=== PATIENT | female | born 1950 | race Caucasian/White ===

== ENCOUNTER 2025-11-04 19:07 | Inpatient (IN) | payer BC, MEDICARE, SELFPAY ==
[2025-11-04] VITALS (10 sets, daily range): BP systolic 85–116; BP diastolic 57–89; PULSE 55–86; RESP 11–24; TEMP 36.6; O2SAT 98–100
--- NOTE | ~2025-11-04 | CT_ITS ---
EXAMINATION: CTA chest PE abdomen pel DATE: 11/05/2025 01:03 INDICATION: Abdominal pain. Diarrhea. Syncope. TECHNIQUE: Computed tomography angiography (CTA) of the chest was performed with 100 mL Omnipaque-350 intravenous contrast timed to evaluate the pulmonary arteries. Coronal maximum intensity projection 3D-reconstructions were created by the technologist. Computed tomography (CT) of the abdomen and pelvis was performed with intravenous contrast. Automated exposure control and iterative reconstruction technique were employed. The dose-length product was 359.24 mGy-cm. COMPARISON: None. FINDINGS: CTA chest: There is a 3 mm nodule in left lung upper lobe, likely benign. There is mild atelectasis bilaterally. A calcified right lung nodule is consistent with old granulomatous disease. No pleural effusion. The heart size is normal. There are coronary artery calcifications. There is a trace pericardial effusion. There is no pulmonary embolus. There is thoracic dextroscoliosis and severe spondylosis. CT abdomen and pelvis: There is a 4 mm cyst. There are changes of cholecystotomy. The spleen, pancreas, adrenal glands, and kidneys are normal. The stomach distended. There are no dilated loops of small or large bowel. There is wall thickening of the left colon. The appendix is not visualized. There is trace ascites. Body wall edema is noted. There are no pathologically enlarged lymph nodes. There is lumbar levoscoliosis and severe spondylosis. IMPRESSION: 1. No pulmonary embolus. 2. Wall thickening of the left colon, consistent with colitis. Reviewed, dictated and finalized at location E. ER BED PLACER
--- NOTE | ~2025-11-04 | XR_ITS ---
Examination: XR chest 2V Clinical History: fever Comparison: 11/04/2025 Technique: PA and Lateral Findings: Cardiomediastinal silhouette normal size and configuration. Left basilar airspace opacity. Small pleural effusions. No acute bony abnormality. Osteopenia. IMPRESSION: 1. Left lower lobe atelectasis and/or airspace disease. 2. Small pleural effusions. Reviewed, dictated and finalized at location R. TRUCTION CONSULTANT
--- NOTE | ~2025-11-04 | CT_ITS ---
EXAMINATION: CT BRAIN W/O DATE: 11/04/2025 20:44 INDICATION: Syncope TECHNIQUE: Computed tomography (CT) of the head was performed without intravenous contrast. The dose-length product was 529.67 mGy-cm. COMPARISON: No prior studies for comparison. FINDINGS: Decreased brain parenchymal volume for age. Normal valdez-white differentiation. No acute intracranial hemorrhage, infarction, mass or mass effect. There are scattered mild periventricular and subcortical white matter changes, most likely related to small vessel ischemic disease (microangiopathy). No ventriculomegaly or midline shift. Midline sagittal images demonstrate a normal corpus callosum, craniovertebral junction and sella turcica. Basilar cisterns are patent. Paranasal sinuses and mastoids are pneumatized. No depressed skull fractures. IMPRESSION: 1. No acute intracranial abnormality. Reviewed, dictated and finalized at location O. AGE COORDINATOR
--- NOTE | ~2025-11-04 | CT_ITS ---
EXAMINATION: CT abdomen pelvis w con DATE: 11/09/2025 13:21 INDICATION: Severe abdominal pain TECHNIQUE: Computed tomography (CT) of the abdomen and pelvis was performed with intravenous contrast. The dose-length product was 260.91 mGy-cm. Automated exposure control and iterative reconstruction technique were employed. COMPARISON: CT abdomen dated 11/05/2025. FINDINGS: Small pericardial effusion. Heart size normal. Moderate bilateral pleural effusions have developed since prior examination. There is bilateral lower lobe airspace consolidation which may represent pneumonia and/or atelectasis. Fatty infiltration of the liver. Status post cholecystectomy. The spleen, pancreas, adrenal glands and kidneys are unremarkable. Status post cholecystectomy. Nonobstructive bowel gas pattern. There is diffuse body wall edema. Small amount of ascites. No significant vascular abnormality. No lymphadenopathy. Mild thickening of the left colon, suspicious for colitis. There is scoliosis. IMPRESSION: 1. Interval development of bibasilar airspace consolidation, suspicious for pneumonia. 2: New moderate pleural effusions. 3: Developing diffuse subcutaneous edema and ascites. This constellation of findings compatible with fluid overload/anasarca. 4: Mild thickening of the left colon, suspicious for colitis, most likely infectious or inflammatory. Reviewed, dictated and finalized at location O. ICAL TREATMENT PLANT TECHNICIAN IMPRESSION: 1. Interval development of bibasilar airspace consolidation, suspicious for pne umonia. 2: New moderate pleural effusions. 3: Developing diffuse subcutaneous edema and ascites. This constellation of fin dings compatible with fluid overload/anasarca. 4: Mild thickening of the left colon, suspicious for colitis, most likely infe ctious or inflammatory.
--- NOTE | ~2025-11-04 | XR_ITS ---
EXAMINATION: XR chest 1V 11/04/2025 20:46 INDICATION: Syncope PROCEDURE: AP view of the chest COMPARISON: No prior studies for comparison. FINDINGS: The lungs are clear. The cardiomediastinal silhouette is within normal limits. There are no pleural effusions. There is no pneumothorax suspected. IMPRESSION: 1: NO ACUTE CARDIOPULMONARY DISEASE. Reviewed, dictated and finalized at location O. STANT PROFESSOR OF DIETETICS
--- OUTSIDE RECORDS SUMMARY | 2025-11-04 20:19 | XMS_ITS | Clinical Summary ---
Author Organization [facility] Address [facility] [place] [address] Care Team Providers Care Resident Care Manager Rn Name Role Phone Elvin Crowe PA-C Primary Care Provider [phone] Medications SITagliptin 100 MG tablet Take 100 mg by mouth daily. Active nortriptyline 75 MG capsule Take 75 mg by mouth nightly at bedtime. Active aspirin EC (ASPIRIN EC) 81 MG tablet Take 81 mg by mouth daily. Active vitamin D3, cholecalciferol , 1000 UNIT Tab tablet Take 1 tablet by mouth daily. Active atorvastatin 20 MG tablet Take 20 mg by mouth nightly at bedtime. Active hydroCHLOROthia zide 12.5 MG tablet Take 12.5 mg by mouth every morning. Active lisinopril 10 MG tablet Take 10 mg by mouth daily. Active rOPINIRole 4 MG tablet Take 1 tablet by mouth 3 (three) times daily. Active ferrous gluconate 324 (37.5 Fe) MG tablet Take 324 mg by mouth daily with breakfast. Active busPIRone 30 MG tablet Take 30 mg by mouth 2 (two) times daily. Active omeprazole 20 MG capsule Take 20 mg by mouth 2 (two) times a day. 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[employer] Gender Identity Not on file Sexual Orientation Not on file Last Filed Vital Signs Vital Sign Reading Time Taken Comments Blood Pressure 135/86 05/18/2020 1:17 PM CDT Pulse 94 05/18/2020 1:17 PM CDT Temperature 36.4 C (97.6 F) 05/18/2020 12:49 PM CDT Respiratory Rate 31 05/18/2020 1:17 PM CDT Oxygen Saturation 99% 05/18/2020 1:17 PM CDT Inhaled Oxygen Concentration - - Weight 68.9 kg (152 lb) 05/12/2020 9:52 AM CDT Height 149.9 cm (4' 11) 05/12/2020 9:52 AM CDT Body Mass Index 30.7 05/12/2020 9:52 AM CDT Plan of Treatment Health Maintenance Due Date Last Done Comments Colorectal Cancer Screening Colonoscopy (10 Years) 1950 Meningococcal Vaccine (1 - Risk 2-dose series) 1953 Meningococcal B Vaccine (1 of 4 - Increased Risk) 1961 Hepatitis C 1969 Zoster Vaccines (1 of 2) 2001 Annual Medicare Wellness Visit 2016 COVID-19 Vaccine (3 - season) 2025 01/25/2021, 12/28/2020 Influenza Adult (#1) 2025 10/24/2023, 09/11/2022, 08/20/2021, Additional history exists Mammogram Screening 02/18/2026 02/19/2024, 07/04/2021, 01/05/2020, Additional history exists RSV Immunization or 60+ Years (1 - 1-dose 75+ series) 2026 DTaP, Tdap and Td Vaccines (2 - Td or Tdap) 10/28/2029 10/28/2019 Pneumococcal Vaccine: 50+ Years Completed 10/28/2019, 04/30/2017 Dexa Scan (General) Completed 12/29/2019, 12/29/2019, 10/17/2017 Hepatitis A Vaccines Aged Out No long er eligible based on patient's age to complete this topic RSV Immunizations Under 20 Months Aged Out No longer eligible based on patient's age to complete this topic Insurance MEDICARE [facility] Care Teams Resident Care Manager Rn Relationship Specialty Start Date End Date Elvin Crowe PA-C PCP - General PHYSICIAN [employer] 05/18/20
--- OUTSIDE RECORDS SUMMARY | 2025-11-04 20:19 | XMS_ITS | Clinical Summary ---
Author Organization [facility] [address] [facility] Address [address] [place] [address] Phone Care Team Providers Care Geospatial Engineer Name Role Phone Sharan Murillo MD Unavailable Elvin Crowe Primary Care Provider [phone] Allergies No known active allergies Medications multivitamin tablet daily Active diclofenac sodium (VOLTAREN) 1 % gel Apply 2 g topically 3 (three) times a day 1 Tube 3 0 Active cholecalciferol (VITAMIN D-3) 25 mcg (1,000 unit) tablet Take 1 tablet (1,000 Units total) by mouth daily Active blood glucose diagnostic (GROU.PSTouch Ultra Test) strip Check sugars daily 100 each 3 1 Active ondansetron (Zofran) 4 mg tablet Take 1 tablet (4 mg total) by mouth every 8 (eight) hours as needed for nausea or vomiting 20 tablet 3 Active aspirin 81 mg chewable tablet Take 1 tablet (81 mg total) by mouth daily 90 tablet 3 3 Active FeroSuL 325 mg (65 mg iron) tablet TAKE 1 TABLET DAILY WITH BREAKFAST 90 tablet 3 3 Active rOPINIRole (REQUIP) 5 mg tabletIndications: RLS (restless legs syndrome) Take 1 tablet (5 mg total) by mouth 3 (three) times a day 270 tablet 3 4 Active rOPINIRole (REQUIP) 1 mg tablet Take 1 tablet (1 mg total) by mouth 3 (three) times a day 90 tablet 11 4 Active famotidine (PEPCID) 40 mg tabletIndications: Gastroesophageal reflux disease without esophagitis Take 1 tablet nightly as needed for heartburn 4 Active linaCLOtide (Linzess) 290 mcg capsule Take 1 capsule (290 mcg total) by mouth daily 90 capsule 3 4 Active sertraline (ZOLOFT) 25 mg tabletIndications: Current mild episode of major depressive disorder without prior episode TAKE 1 TABLET DAILY 90 tablet 3 4 Active atorvastatin (LIPITOR) 20 mg tabletIndications: Mixed hyperlipidemia Take 1 tablet (20 mg total) by mouth daily 4 Active busPIRone (BUSPAR) 15 mg tabletIndications: Current mild episode of major depressive disorder without prior episode Take one-half (1/2) tablet twice a day 90 tablet 3 4 Active hydroCHLOROthiazid e (HYDRODIURIL) 50 mg tabletIndications: Primary hypertension Take 1 tablet (50 mg total) by mouth daily 90 tablet 3 4 Active lisinopriL (PRINIVIL,ZESTRIL) 40 mg tabletIndications: Primary hypertension Take 1 tablet (40 mg total) by mouth daily 4 Active rOPINIRole (REQUIP) 1 mg tabletIndications: RLS (restless legs syndrome) Take 1 tablet (1 mg total) by mouth nightly Can take with 5 mg 90 tablet 3 4 Active omeprazole (PriLOSEC) 40 mg capsuleIndications :Gastroesophageal reflux disease without esophagitis Take 1 capsule (40 mg total) by mouth 2 (two) times a day 4 Active nortriptyline (PAMELOR) 50 mg capsuleIndications :Major depressive disorder with single episode, remission status unspecified TAKE 1 CAPSULE AT BEDTIME 4 Active dulaglutide (TRULICITY) 1.5 mg/0.5 mL pen injector Inject 0.5 mL (1.5 mg total) under the skin every 7 days 6 mL 3 4 Active Active Problems Problem Noted Date Diagnosed Date 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 04/23/2024 Slow transit constipation 09/11/2022 Assessment & Plan (09/11/2022 10:00 AM CDT): Trial of low dose linzess Type 2 diabetes mellitus with hyperglycemia 08/13 Gastroesophageal reflux disease without esophagi tis 03/08/2022 Assessment & Plan (04/22/2024 6:18 AM CDT): Avoid spicy, fried, greasy foods Keep hydrated with clear liquids Elevate HOB 2- 3 inches Avoid or cut down on caffeine, chocolates, and ETOH No late meals, or heavy meals after 7 pm Reg daily exercise No tight fitting clothing Stop smoking - if smoker Watch for worsening symptoms - ie diarrhea, vomiting, nausea, blood per rectum, vomiting up blood ,fever, arthralgias, rash etc. RTC prn or if new symptoms arise Pt or parent verbalizes understanding Assessment & Plan (03/24/2024 6:22 AM CDT): Avoid spicy, fried, greasy foods Keep hydrated with clear liquids Elevate HOB 2- 3 inches Avoid or cut down on caffeine, chocolates, and ETOH No late meals, or heavy meals after 7 pm Reg daily exercise No tight fitting clothing Stop smoking - if smoker Watch for worsening symptoms - ie diarrhea, vomiting, nausea, blood per rectum, vomiting up blood ,fever, arthralgias, rash etc. RTC prn or if new symptoms arise Pt or parent verbalizes understanding Assessment & Plan (10/24/2023 9:25 AM MOUTHPIECE MAKER): Images from the original note were not included. Avoid spicy, fried, greasy foods Keep hydrated with clear liquids Elevate HOB 2- 3 inches Avoid or cut down on caffeines, chocolates, and ETOH No late meals, or heavy meals after 7 pm Reg daily exercise No tight fitting clothing Stop smoking - if smoker Watch for worsening symptoms - ie diarrhea, vomiting, nausea, blood per rectum, vomiting up blood ,fever, arthralgias, rash etc. RTC prn or if new symptoms arise Pt or parent verbalizes understanding Assessment & Plan (06/05/2023 9:10 AM CDT): Images from the original note were not included. Avoid spicy, fried, greasy foods Keep hydrated with clear liquids Elevate HOB 2- 3 inches Avoid or cut down on caffeines, chocolates, and ETOH No late meals, or heavy meals after 7 pm Reg daily exercise No tight fitting clothing Stop smoking - if smoker Watch for worsening symptoms - ie diarrhea, vomiting, nausea, blood per rectum, vomiting up blood ,fever, arthralgias, rash etc. RTC prn or if new symptoms arise Pt or parent verbalizes understanding Assessment & Plan (03/06/2023 8:45 AM CDT): Images from the original note were not included. Avoid spicy, fried, greasy foods Keep hydrated with clear liquids Elevate HOB 2- 3 inches Avoid or cut down on caffeines, chocolates, and ETOH No late meals, or heavy meals after 7 pm Reg daily exercise No tight fitting clothing Stop smoking - if smoker Watch for worsening symptoms - ie diarrhea, vomiting, nausea, blood per rectum, vomiting up blood ,fever, arthralgias, rash etc. RTC prn or if new symptoms arise Pt or parent verbalizes understanding Assessment & Plan (01/30/2023 8:26 AM CDT): Images from the original note were not included. Avoid spicy, fried, greasy foods Keep hydrated with clear liquids Elevate HOB 2- 3 inches Avoid or cut down on caffeines, chocolates, and ETOH No late meals, or heavy meals after 7 pm Reg daily exercise No tight fitting clothing Stop smoking - if smoker Watch for worsening symptoms - ie diarrhea, vomiting, nausea, blood per rectum, vomiting up blood ,fever, arthralgias, rash etc. RTC prn or if new symptoms arise Pt or parent verbalizes understanding Assessment & Plan (10/23/2022 7:19 AM MOUTHPIECE MAKER): Images from the original note were not included. Avoid spicy, fried, greasy foods Keep hydrated with clear liquids Elevate HOB 2- 3 inches Avoid or cut down on caffeines, chocolates, and ETOH No late meals, or heavy meals after 7 pm Reg daily exercise No tight fitting clothing Stop smoking - if smoker Watch for worsening symptoms - ie diarrhea, vomiting, nausea, blood per rectum, vomiting up blood ,fever, arthralgias, rash etc. RTC prn or if new symptoms arise Pt or parent verbalizes understanding Assessment & Plan (09/11/2022 9:57 AM CDT): Images from the original note were not included. Avoid spicy, fried, greasy foods Keep hydrated with clear liquids Elevate HOB 2- 3 inches Avoid or cut down on caffeines, chocolates, and ETOH No late meals, or heavy meals after 7 pm Reg daily exercise No tight fitting clothing Stop smoking - if smoker Watch for worsening symptoms - ie diarrhea, vomiting, nausea, blood per rectum, vomiting up blood ,fever, arthralgias, rash etc. RTC prn or if new symptoms arise Pt or parent verbalizes understanding Assessment & Plan (08/28/2022 10:53 AM CDT): Continue current meds as prescribed reviewed her results of asked her to divide her pills up so that she is not taking 8-9 at 1 time as I feel this may be causing some of her GI upset she will update me next week Abnormal sensation of lower extremity 05/03/2021 Assessment & Plan (05/03/2021 11:50 AM CDT): This is been progressive in patient really cannot describe it but it can happen day or night she has to get up she has to rub her legs and they recur quit helps but for a short period of time it also is now affecting her upper extremities. Disorder of refraction and accommodation 019 Nuclear senile cataract 10/31/2019 Laceration of left thumb 10/28/2019 Bilateral impacted cerumen 09/29/2019 Interstitial myositis of left upper extremity Tinnitus of left ear 09/29/2019 Anemia due to unknown mechanism 03/06/2019 Assessment & Plan (08/30/2020 1:54 PM CDT): Controlled, taking iron, getting labs Dehydration 03/08/2018 Diarrhea 03/08/2018 Vomiting 03/08/2018 Assessment & Plan (08/28/2022 10:38 AM CDT): Splitting am pills at night, Evening is fine BMI 31.0-31.9,adult 02/04/2018 Elevated serum alkaline phosphatase level 2017 Overview (03/06/2019): Suspect fatty liver, we are going to get a hepatitis panel and liver ultrasound further workup based on results. Type 2 diabetes mellitus wit hout complication, without long-term current use of insulin 12/20/2017 Overview (03/05/2019): Hemoglobin A1c is 6.7, continue current medications, work on diet and exercise. We did discuss foot care and eye exam is up-to-date. We will get new labs follow the based on labs and if normal we'll see each other in 6 months. Assessment & Plan (04/22/2024 6:18 AM CDT): To change to Trulicity given the availability and insurance labs in 6-8 weeks, current labs were ordered, eye exam is up-to-date, foot care was discussed. Healthy diet and reference to [email or web address]. Exercise as discussed, follow-up as scheduled routine. We did discuss proper monitoring of blood sugars Assessment & Plan (03/25/2024 11:57 AM CDT): To change to Trulicity given the availability and insurance labs in 6-8 weeks, current labs were ordered, eye exam is up-to-date, foot care was discussed. Healthy diet and reference to [email or web address]. Exercise as discussed, follow-up as scheduled routine. We did discuss proper monitoring of blood sugars Assessment & Plan (10/24/2023 9:26 AM MOUTHPIECE MAKER): Patient is going to continue current medications, current labs were ordered, eye exam is up-to-date, foot care was discussed. Healthy diet and reference to [email or web address]. Exercise as discussed, follow-up as scheduled routine. We did discuss proper monitoring of blood sugars Stop glucophage due to renal functions Assessment & Plan (06/05/2023 9:10 AM CDT): Patient is going to continue current medications, current labs were ordered, eye exam is up-to-date, foot care was discussed. Healthy diet and reference to [email or web address]. Exercise as discussed, follow-up as scheduled routine. We did discuss proper monitoring of blood sugars Assessment & Plan (03/06/2023 8:45 AM CDT): Patient is going to continue current medications, current labs were ordered, eye exam is up-to-date, foot care was discussed. Healthy diet and reference to [email or web address]. Exercise as discussed, follow-up as scheduled routine. We did discuss proper monitoring of blood sugars Assessment & Plan (01/30/2023 8:27 AM CDT): Given changes in diet, CPM, a1c 4 weeks Assessment & Plan (10/23/2022 7:20 AM MOUTHPIECE MAKER): This is not controlled we discussed a once a week injection we elected to add 5 extra mg of Glucotrol XL to be taking it dinner labs in 6 weeks long discussion about this particular medication and the need to take prior to meal Assessment & Plan (09/11/2022 9:58 AM CDT): Increase glipizide to 10 mg Assessment & Plan (08/28/2022 10:52 AM CDT): Patient is going to continue current medications, current labs were ordered, eye exam is up-to-date, foot care was discussed. Healthy diet and reference to [email or web address]. Exercise as discussed, follow-up as scheduled routine. We did discuss proper monitoring of blood sugars Assessment & Plan (03/08/2022 1:46 PM CDT): Patient is going to continue current medications, current labs were ordered, eye exam is up-to-date, foot care was discussed. Healthy diet and reference to [email or web address]. Exercise as discussed, follow-up as scheduled routine. We did discuss proper monitoring of blood sugars Assessment & Plan (08/29/2021 1:08 PM CDT): Patient is going to continue current medications, current labs were ordered, eye exam is up-to-date, foot care was discussed. Healthy diet and reference to [email or web address]. Exercise as discussed, follow-up as scheduled routine. We did discuss proper monitoring of blood sugars Assessment & Plan (05/03/2021 11:56 AM CDT): Not controlled, adding glucotrol, diet and labs 6 weeks Assessment & Plan (04/20/2021 4:48 PM CDT): Due to insurance were going to have to change her diabetic medications due to side effects. Stop Ozempic, start Januvia 100 mg daily new prescription was sent to [facility] labs in 6 weeks Assessment & Plan (08/30/2020 1:57 PM CDT): A1c 8.6, adding ozempic, labs 6 weeks Primary osteoarthritis 09/21/2017 Overview (09/21/2017): Xray bilat hands reveal severe OA changes right 2nd, 3rd DIP joints, left hand reveals mild OA changes (09/02/17) US left hand/wrist (09/12/17): ) Mild synovitis with effusions, synovial thickening on examination. Findings greatest in the dorsum of the wrist with an effusion with grade 1 power doppler and radial/scaphoid view with grade 1 effusion and grade 1 power doppler activity seen. The remaining of the examination is essentially unremarkable. Assessment & Plan (09/21/2017 11:38 AM MOUTHPIECE MAKER): Symptoms worse in hands. Had recent surgical intervention of right 2nd and 3rd dip joints with synovial cyst removal and cleaning out arthritic changes per pt which is healing well. Has no significant pain complaints and not requiring any analgesics. Xray bilat hands reveal severe OA changes right 2nd, 3rd DIP joints, left hand reveals mild OA changes. Recent US left hand/wrist did not reveal any significant inflammatory changes. Serology unremarkable including ESR which had previously been elevated. Has no current clinical, serologic, radiographic evidence of an inflammatory arthritis or other connective tissue disease. Symptoms manageable without analgesics. F/u prn. Polyarthralgia 08/31/2017 Assessment & Plan (09/21/2017 11:38 AM MOUTHPIECE MAKER): Assessment & Plan (08/31/2017 11:48 AM CDT): Symptoms more so over the right 2nd and 3rd DIP joints. Has heberdens nodes over these digits and to a lesser extent other DIP joints. Pain is tolerable and she does not require any analgesics for this. Has chronic low back pain with activity although has no other pain complaints. Has no obvious synovitis on exam or clinical evidence of an inflammatory arthritis although with an elevated ESR and her joint complaints this remains possible. Xray bilat hands reveal severe OA changes right 2nd, 3rd DIP joints, left hand reveals mild OA changes. Recent labs reveal RF neg. ESR 65. Will obtain labs as below. Obtain US right hand to evaluate for inflammatory changes. Is noted pt to have surgical removal of right 2nd, 3rd heberdens nodes next week. F/u 2 weeks. Primary osteoarthritis of left hand 08/21/2017 Hand arthritis 08/20/2017 Assessment & Plan (08/30/2020 1:55 PM CDT): As needed meds Distal interphalangeal nodule 08/20/2017 Depression 06/27/2017 Assessment & Plan (04/22/2024 6:17 AM CDT): This is well controlled with no SI HI continue current medications follow-up 6 months. Open door open Assessment & Plan (03/24/2024 6:22 AM CDT): This is well controlled with no SI HI continue current medications follow-up 6 months. Open door open Assessment & Plan (09/11/2022 9:57 AM CDT): Well controlled Assessment & Plan (08/29/2021 1:08 PM CDT): Images from the original note were not included. The pharmacologic and nonpharmacologic treatment of anxiety/depression were discusses with the patient. Included was a discussion of the current treatment regimens and their proposed mechanism of action concerning brain chemistry. Discussed the role of counseling as an adjunct to medications should we agree to pursue this. The patient is non-suicidal, and agrees to inform us of any change in this status follow up in 4-6 weeks- sooner if any problems Assessment & Plan (08/30/2020 1:55 PM CDT): Patient is to continue present medications, work on diet and exercise as discussed, we did discuss the medications and potential side effects and signs and symptoms that would warrant calling office. Follow up routine. Chest discomfort 06/27/2017 Risk for falls 04/30/2017 Encounter for screening for other disorder 04/30 Assessment & Plan (10/24/2023 9:25 AM MOUTHPIECE MAKER): Denies depression Assessment & Plan (10/23/2022 7:19 AM MOUTHPIECE MAKER): Denies depression Encounter for risk and functional assessment Assessment & Plan (10/24/2023 9:25 AM MOUTHPIECE MAKER): Perform all adl Assessment & Plan (10/23/2022 7:18 AM MOUTHPIECE MAKER): Able to perform all ADLs Obesity due to excess calori es, unspecified obesity severity 04/30/2017 Overview (03/06/2019): As above Major depressive disorder with single episode Assessment & Plan (03/08/2022 1:45 PM CDT): Well controlled, will follow Assessment & Plan (04/20/2021 4:47 PM CDT): Images from the original note were not included. This is uncontrolled due to loss of a new friend I am going to decrease her nortriptyline to 50 mg and at 25 mg of Zoloft we did discuss the med use potential side effects she is going to update me in 2 weeks and follow up in 8 weeks. The pharmacologic and nonpharmacologic treatment of anxiety/depression were discusses with the patient. Included was a discussion of the current treatment regimens and their proposed mechanism of action concerning brain chemistry. Discussed the role of counseling as an adjunct to medications should we agree to pursue this. The patient is non-suicidal, and agrees to inform us of any change in this status follow up in 4-6 weeks- sooner if any problems Assessment & Plan (08/30/2020 1:56 PM CDT): Images from the original note were not included. The pharmacologic and nonpharmacologic treatment of anxiety/depression were discusses with the patient. Included was a discussion of the current treatment regimens and their proposed mechanism of action concerning brain chemistry. Discussed the role of counseling as an adjunct to medications should we agree to pursue this. The patient is non-suicidal, and agrees to inform us of any change in this status follow up in 4-6 weeks- sooner if any problems RLS (restless legs syndrome) 02/16/2017 Overview (03/06/2019): This is controlled with p.r.n. meds follow-up as needed. Assessment & Plan (04/22/2024 6:18 AM CDT): Controlled with meds Assessment & Plan (03/24/2024 6:22 AM CDT): Controlled with meds Assessment & Plan (10/24/2023 9:26 AM MOUTHPIECE MAKER): Controlled with meds Assessment & Plan (06/05/2023 9:10 AM CDT): This is well controlled will continue monitoring Assessment & Plan (03/06/2023 8:45 AM CDT): Currently controlled Assessment & Plan (01/30/2023 8:27 AM CDT): controlled Assessment & Plan (10/23/2022 7:19 AM MOUTHPIECE MAKER): This is currently well controlled on current medications with no side effects Assessment & Plan (09/11/2022 9:57 AM CDT): Taking 5 mg tid, seen neurology and was on 6 tid Assessment & Plan (08/28/2022 10:52 AM CDT): This is not controlled patient has taken up to 9 mg a day I have instructed her that that is not proper treatment of restless leg she said it was started by a neurologist am going to bring her back when we have time to sit down and go through what exactly is going on she had so many issues to discuss today we could not get through them Assessment & Plan (03/08/2022 1:46 PM CDT): CPM Assessment & Plan (08/29/2021 1:08 PM CDT): Improved on 6 mg at HS, no nausea, seen neurology Assessment & Plan (06/27/2021 10:19 AM CDT): Patient has longstanding history of urgency to fidget restless leg syndrome. She has had a ferritin level checked which is normal. She does find benefit from ropinirole as to although is starting to notice some breakthrough. I will increase her ropinirole from 3 mg b.i.d. to 3 mg t.i.d. in effort to lessen her symptoms. She will follow-up in neurology clinic in 6 months for reassessment on the increased dosing. Assessment & Plan (05/03/2021 11:55 AM CDT): This is atypical and I am sending to Neurology Assessment & Plan (04/20/2021 4:48 PM CDT): This is currently controlled, will continue to follow Assessment & Plan (08/30/2020 1:56 PM CDT): Increase medications to 3 mg bid Weight gain 02/16/2017 Overview (03/06/2019): We're going to continue diet and exercise, we will continue the [place] she is not having any side effects. We will monitor her weight and she will call it into me on a monthly basis. We will follow up in 6 months. Diabetes 07/21/2016 Overview (03/05/2019): controlled, continue current meds Assessment & Plan (05/03/2021 11:51 AM CDT): This is not controlled, we went over all the options of new medications and due to cost and exhaustion of new meds were going to start 5 mg of glipizide. Hypertension 07/18/2016 Overview (03/05/2019): controlled, continue current meds Assessment & Plan (04/22/2024 6:17 AM CDT): This is a stable chronic condition. Monitor blood pressure, call if out of parameters as we discussed. Low sodium and caffeine diet. baby asa as discussed if applicable. Diet, exercise and weight reduction. Labs as ordered. F/U routine Assessment & Plan (03/24/2024 6:22 AM CDT): This is a stable chronic condition. Monitor blood pressure, call if out of parameters as we discussed. Low sodium and caffeine diet. baby asa as discussed if applicable. Diet, exercise and weight reduction. Labs as ordered. F/U routine Assessment & Plan (10/24/2023 9:25 AM MOUTHPIECE MAKER): Images from the original note were not included. This is a stable chronic condition. Monitor blood pressure, call if out of parameters as we discussed. Low sodium and caffeine diet. baby asa as discussed if applicable. Diet, exercise and weight reduction. Labs as ordered. F/U routine Assessment & Plan (06/05/2023 9:10 AM CDT): This is a stable chronic condition. Monitor blood pressure, call if out of parameters as we discussed. Low sodium and caffeine diet. baby asa as discussed if applicable. Diet, exercise and weight reduction. Labs as ordered. F/U routine Assessment & Plan (03/06/2023 8:45 AM CDT): Images from the original note were not included. This is a stable chronic condition. Monitor blood pressure, call if out of parameters as we discussed. Low sodium and caffeine diet. baby asa as discussed if applicable. Diet, exercise and weight reduction. Labs as ordered. F/U routine Assessment & Plan (01/30/2023 8:27 AM CDT): Images from the original note were not included. This is a stable chronic condition. Monitor blood pressure, call if out of parameters as we discussed. Low sodium and caffeine diet. baby asa as discussed if applicable. Diet, exercise and weight reduction. Labs as ordered. F/U routine Assessment & Plan (10/23/2022 7:19 AM MOUTHPIECE MAKER): This is not controlled, I am going to double her lisinopril to 40 mg, monitor blood pressures and blood work in 2 weeks Assessment & Plan (09/11/2022 9:57 AM CDT): Images from the original note were not included. This is a stable chronic condition. Monitor blood pressure, call if out of parameters as we discussed. Low sodium and caffeine diet. baby asa as discussed if applicable. Diet, exercise and weight reduction. Labs as ordered. F/U routine Assessment & Plan (08/28/2022 10:52 AM CDT): This is a stable chronic condition. Monitor blood pressure, call if out of parameters as we discussed. Low sodium and caffeine diet. baby asa as discussed if applicable. Diet, exercise and weight reduction. Labs as ordered. F/U routine Assessment & Plan (03/08/2022 1:45 PM CDT): Images from the original note were not included. This is a stable chronic condition. Monitor blood pressure, call if out of parameters as we discussed. Low sodium and caffeine diet. baby asa as discussed if applicable. Diet, exercise and weight reduction. Labs as ordered. F/U routine Assessment & Plan (08/29/2021 1:08 PM CDT): Images from the original note were not included. This is a stable chronic condition. Monitor blood pressure, call if out of parameters as we discussed. Low sodium and caffeine diet. baby asa as discussed if applicable. Diet, exercise and weight reduction. Labs as ordered. F/U routine Assessment & Plan (05/03/2021 11:50 AM CDT): This is a stable chronic condition. Monitor blood pressure, call if out of parameters as we discussed. Low sodium and caffeine diet. baby asa as discussed if applicable. Diet, exercise and weight reduction. Labs as ordered. F/U routine Assessment & Plan (04/20/2021 4:47 PM CDT): This is a stable chronic condition. Monitor blood pressure, call if out of parameters as we discussed. Low sodium and caffeine diet. baby asa as discussed if applicable. Diet, exercise and weight reduction. Labs as ordered. F/U routine Assessment & Plan (08/30/2020 1:55 PM CDT): Images from the original note were not included. This is a stable chronic condition. Monitor blood pressure, call if out of parameters as we discussed. Low sodium and caffeine diet. baby asa as discussed if applicable. Diet, exercise and weight reduction. Labs as ordered. F/U routine Encounter for general adult medical examination without abnormal findings 07/18/2016 Assessment & Plan (10/24/2023 9:25 AM MOUTHPIECE MAKER): HEALTHCARE MAINTENANCE updated Assessment & Plan (10/23/2022 7:18 AM MOUTHPIECE MAKER): Healthcare maintenance updated mammogram and bone density ordered Assessment & Plan (04/20/2021 4:47 PM CDT): Healthcare maintenance updated, immunizations reviewed, colonoscopy up-to-date, follow-up and Mixed hyperlipidemia 07/18/2016 Overview (03/06/2019): Continue current medications diet exercise and weight loss. We will get Labs change medicines based on the labs. Call next week for results. Assessment & Plan (04/22/2024 6:18 AM CDT): Patient is to continue present medications, work on diet and exercise as discussed, we did discuss the medications and potential side effects and signs and symptoms that would warrant calling office. Follow up routine. Assessment & Plan (03/24/2024 6:22 AM CDT): Patient is to continue present medications, work on diet and exercise as discussed, we did discuss the medications and potential side effects and signs and symptoms that would warrant calling office. Follow up routine. Assessment & Plan (06/05/2023 9:10 AM CDT): Patient is to continue present medications, work on diet and exercise as discussed, we did discuss the medications and potential side effects and signs and symptoms that would warrant calling office. Follow up routine. Assessment & Plan (03/06/2023 8:45 AM CDT): Patient is to continue present medications, work on diet and exercise as discussed, we did discuss the medications and potential side effects and signs and symptoms that would warrant calling office. Follow up routine. Assessment & Plan (01/30/2023 8:27 AM CDT): Patient is to continue present medications, work on diet and exercise as discussed, we did discuss the medications and potential side effects and signs and symptoms that would warrant calling office. Follow up routine. Assessment & Plan (10/23/2022 7:19 AM MOUTHPIECE MAKER): Patient is to continue present medications, work on diet and exercise as discussed, we did discuss the medications and potential side effects and signs and symptoms that would warrant calling office. Follow up routine. Assessment & Plan (09/11/2022 9:57 AM CDT): Patient is to continue present medications, work on diet and exercise as discussed, we did discuss the medications and potential side effects and signs and symptoms that would warrant calling office. Follow up routine. Assessment & Plan (08/28/2022 10:52 AM CDT): Patient is to continue present medications, work on diet and exercise as discussed, we did discuss the medications and potential side effects and signs and symptoms that would warrant calling office. Follow up routine. Assessment & Plan (03/08/2022 1:45 PM CDT): Patient is to continue present medications, work on diet and exercise as discussed, we did discuss the medications and potential side effects and signs and symptoms that would warrant calling office. Follow up routine. Assessment & Plan (08/29/2021 1:08 PM CDT): Patient is to continue present medications, work on diet and exercise as discussed, we did discuss the medications and potential side effects and signs and symptoms that would warrant calling office. Follow up routine. Assessment & Plan (05/03/2021 11:55 AM CDT): Patient is to continue present medications, work on diet and exercise as discussed, we did discuss the medications and potential side effects and signs and symptoms that would warrant calling office. Follow up routine. Assessment & Plan (04/20/2021 4:47 PM CDT): Patient is to continue present medications, work on diet and exercise as discussed, we did discuss the medications and potential side effects and signs and symptoms that would warrant calling office. Follow up routine. Resolved Problems Problem Noted Date Diagnosed Date Resolved Date Metabolic syndrome 06/27/2017 0 Impaired glucose tolerance 07/18/2016 1 Immunizations Immunization Administration Dates Next Due Influenza, Quadrivalent, Hig h Dose, Preservative Free, Intrr 09/11/2022,08/20/2021,07/29/2020 Influenza, Trivalent, High D ose, Split, Preservative Free, Intramuscular 10/28/2019,08/12/2018,08/28/2017 Influenza, Trivalent, Preser vative Free, Intramuscular 07/23/2016,09/19/2015 Influenza, Unspecified 10/24/2023,2021,08/20/2021,07/29,08/12/2018,07/24/2016 Moderna SARS-CoV-2 Monovalen t Vaccination (12+ YRS) 01/25/2021,12/28/2020 Pneumococcal Conjugate PCV 13 04/30/2017 Pneumococcal Polysaccharide PPV23 10/28/2019 Tdap 10/28/2019 Surgical History Surgery Date Site/Laterality Comments APPENDECTOMY TONSILLECTOMY HAND SURGERY Right CATARACT EXTRACTION HYSTERECTOMY age 4 VAGINAL DELIVERY x1 BACK SURGERY Medical History Medical History Date Comments Hypertension IBS (irritable bowel syndrome) Edema Restless leg syndrome Depression Hyperlipidemia Vitamin D deficiency Diabetes GERD (gastroesophageal reflux disease) Anemia Chronic constipation Type 2 diabetes mellitus Arthritis Cataract Family History Medical History Relation Name Comments Hypertension Brother Cancer Father Colitis Mother Lupus Sister Relation Name Status Comments Brother Alive Father (Age 54) Maternal Grandfather Maternal Grandmother Mother (Age 87) Paternal Grandfather Paternal Grandmother Sister Alive Social History Tobacco Use Types Packs/Day Years Used Date Smoking Tobacco: Never Smokeless Tobacco: Never Tobacco Cessation:Counseling Given: Not Answered Alcohol Use Standard Drinks/Week Comments Never 0 (1 standard drink = 0.6 oz pur e alcohol) AUDIT-C Answer Date Recorded Q1: How often do you have a drink containing alc ohol? Never 04/23/2024 Average Number of Drinks Not on file 024 Frequency of Binge Drinking Not on file 04/12 PHQ-2 Answer Date Recorded PHQ-2 Total Score (If total score is 3 or more points, staff should administer the PHQ-9) 0 10/24/2023 Personal Safety Answer Date Recorded Getting School Help Needed Not on file 10/23 Comments No Sex and Gender Information Value Date Recorded Sex Assigned at Not on file Legal Sex Female 1:02 PM MOUTHPIECE MAKER Gender Identity Female 08/23/2021 9:16 AM CDT Sexual Orientation Not on file Obstetrics History Para Term AB IAB SAB Ectopic Multiple Livin g Live Births 1 Date Outcome GA Total Labor Labor/2nd/3rd Weight Sex Type Anes PTL Anette A1 A5 Name Clin Last Filed Vital Signs Vital Sign Reading Time Taken Comments Blood Pressure 130/74 04/23/2024 9:41 AM CDT Pulse 73 04/23/2024 9:41 AM CDT Temperature 36.2 C (97.1 F) 04/23/2024 9:41 AM CDT Respiratory Rate 16 04/23/2024 9:41 AM CDT Oxygen Saturation 99% 04/23/2024 9:41 AM CDT Inhaled Oxygen Concentration - - Weight 63 kg (139 lb) 04/23/2024 9:41 AM CDT Height 152.4 cm (5') 04/23/2024 9:41 AM CDT Body Mass Index 27.15 04/23/2024 9:41 AM CDT Plan of Treatment Health Maintenance Due Date Last Done Comments Dilated Eye Exam 12/17/2020 12/17/2019 Foot Exam 01/07/2021 01/07/2020, 10/28/2019 Osteoporosis Screening-Bone Density Scan 12/29/2021 12/29/2019, 10/17/2017 Depression Screening 10/24/2024 10/24/2023, 10/23/2022, 08/28/2022, Additional history exists Fall Risk Assessment 10/24/2024 10/24/2023, 10/23/2022, 08/28/2022, Additional history exists Well Visit 65+ 10/24/2024 10/24/2023, 10/12, 04/20/2021, Additional history exists Hemoglobin A1C 11/04/2024 05/05/2024, 10/12, 03/06/2023, Additional history exists Breast Cancer Screening-Mammogram 02/18/2025 02/19/2024, 07/04/2021, 12/29/2019, Additional history exists Albumin Creatinine Ratio, Urine 05/05/2025 05/05/2024, 10/22/2023, 03/01/2023, Additional history exists Lipid Panel 05/05/2025 05/05/2024, 10/12, 03/01/2023, Additional history exists eGFR 05/05/2025 05/05/2024, 10/12, 03/01/2023, Additional history exists Covid-19 Vaccine ( - 2024-2 6 season) 2025 09/13/2022, 09/15/2021, 01/25/2021, Additional history exists Influenza Vaccine (#1) 2025 , 09/11/2022, 09/11/2022, Additional history exists Colon Cancer Screening-Colonoscopy 03/17/2029 03/17/2019 DTaP/Tdap/Td Vaccine (2 - Td or Tdap) 10/28/2029 10/28/2019 Hepatitis B Screening Completed 02/01/2018 Hepatitis C Screening Completed 02/01/2018 Colon Cancer Screening-CT Colonography Discontinued 03/17/2019 Colon Cancer Screening-DNA Stool Discontinued 03/17/20 19 Colon Cancer Screening-FIT Discontinued 03/17/2019 Colon Cancer Screening-Sigmoidoscopy Discontinued 03/17/2019 Pneumococcal vaccine 65+ Completed 10/28/2019, 04/12 Zoster Vaccine Discontinued Procedures Procedure Name Priority Date/Time Associated Diagnosis Comments ALBUMIN CREATININE RATIO, URINE Routine 05/05/2024 10:24 AM CDT Type 2 diabetes mellitus without complication, without long-term current use of insulin (HCC) EGFR Routine 05/05/2024 9:06 AM CDT Mixed hyperlipidemia Primary hypertension Type 2 diabetes mellitus without complication, without long-term current use of insulin (HCC) HEMOGLOBIN A1C Routine 05/05/2024 9:06 AM CDT Type 2 diabetes mellitus without complication, without long-term current use of insulin (HCC) LIPID PANEL Routine 05/05/2024 9:06 AM CDT Mixed hyperlipidemia Type 2 diabetes mellitus without complication, without long-term current use of insulin (HCC) SCREENING MAMMOGRAM BILATERAL W MEET Schedule Routine, Read Routine (OP Routine) 02/19/2024 12:08 PM CDT Screening mammogram, encounter for DEXA AXIAL SKELETON BONE DENSITY 1 OR MORE SITES 12/29/2019 1:03 PM MOUTHPIECE MAKER DIABETIC EYE EXAM Routine 12/17/2019 COLONOSCOPY Routine 03/17/2019 HEPATITIS PANEL, ACUTE Routine 02/01/2018 8:35 AM CDT from Last 3 Months or Most Recently Relevant to Health Maintenance Results * Albumin Creatinine Ratio, Urine (05/05/2024 10:24 AM CDT) Albumin Ur 13.9 mg/L Comment: Interpretive Data No reference range established. Current interpretive data was last revised 2019. Testing performed by: [facility], [address] [place] [address]., [id number] Creatinine Ur 182.9 mg/dL ANUJ BURKETT Comment: Interpretive Data No reference range established. Current interpretive data was last revised 2019. Testing performed by: [facility], [address] [place] [address]., [id number] Albumin Creatinine Ratio, Ur 8 1 - 29 mg/g ANUJ BURKETT Comment:Testing performed by : [facility], [address] [place] [address]., [id number] Urine 05/05/2024 10:2 4 AM CDT 05/05/2024 10:24 AM CDT Elvin VALLE LAB URINE ORDERABLES Final Resu lt Performing Organization Address [facility] Co de Phone Number ANUJ [phone] [facility] Department [place] [address] * (ABNORMAL) eGFR (05/05/2024 9:06 AM CDT) eGFR 53(L) >=60 mL/min/1. 73 m2 Comment: Interpretive Data Reference Interval Normal >/= 90 mL/min/1.73m2 Mildly decreased* 60 - 89 mL/min/1.73m2 Mildly to moderately decreased 45 - 59 mL/min/1.73m2 Moderately to severely decreased 30 - 44 mL/min/1.73m2 Severely decreased 15 - 29 mL/min/1.73m2 Kidney Failure < 15 mL/min/1.73m2 *Relative to young adult level Estimated glomerular filtration rate is determined by the 2020 CKD-EPI equation recommended by the National Kidney Foundation (A Unifying Approach to GFR Estimation: Recommendations of the NKF-ASK Task Force on Reassessing the Inclusion of Race in Diagnosing Kidney Disease, JASN 2020). The CKD-EPI equation should not be used for patients with unstable renal function and has not been validated in children and those over 70. Current interpretive data was last reviewed 2021. Testing performed by: [facility], [address] [place] [address]., [id number] Blood 05/05/2024 9:06 AM CDT 05/05/2024 11:54 AM CDT us Elvin VALLE LAB BLOOD ORDERABLES Final Resu lt Performing Organization Address [facility] Co de Phone Number ANUJ [phone] [facility] [place] [address] * (ABNORMAL) Hemoglobin A1c (05/05/2024 9:06 AM CDT) Hgb A1C 6.9(H) 4.0 - 5.6 % Comment:Testing performed by : [address] [id number] Estimated Average Glucose 151 mg/dL ANUJ Comment: The ADA recommends reporting an estimated Average Glucose (eAG) with all Hemoglobin A1c results using the equation derived from a study of 507 normal and diabetic adults. Minority populations were underrepresented and children were not included. (Diabetes Care 31:8182-5231, 2008). The eAG is not equivalent to a fasting glucose. Testing performed by: [address] [id number] Blood 05/05/2024 9:06 AM CDT 05/05/2024 10:38 AM CDT Elvin VALLE LAB BLOOD ORDERABLES Final Resu lt Performing Organization Address [facility] de Phone Number ANUJ [phone] [facility] [place] [address] * (ABNORMAL) Lipid panel (05/05/2024 9:06 AM CDT) Cholesterol 135 30 - 199 mg/dL Comment: Interpretive Data Ages < or = 19 years Acceptable: <170 mg/dL Borderline high: 170-199 mg/dL High: >or= 200 mg/dL Ages > or = 20 years Desirable: <200 mg/dL Borderline high: 200-239 mg/dL High: >or= 240 mg/dL Literature References: 1. Expert Panel on Integrated Guidelines for Cardiovascular Health and Risk Reduction in Children and Adolescents. Pediatrics 2011;128:S213 2. NCEP Expert Panel. Circulation 2004;110:227 Current Interpretive Data was last revised on 2018. Testing performed by: [address] [address] Triglycerides 127 <=149 mg/dL ANUJ Comment: Interpretive Data Ages < or = 9 years Acceptable: <75 mg/dL Borderline high: 75-99 mg/dL High: >or= 100 mg/dL Ages 10 to 20 years Acceptable: <90 mg/dL Borderline high: 90-129 mg/dL High: >or= 130 mg/dL Ages > or = 20 years Desirable: <150 mg/dL Borderline high: 150-199 mg/dL High: 200-499 mg/dL Very high: >or= 499 mg/dL Literature References: 1. Expert Panel on Integrated Guidelines for Cardiovascular Health and Risk Reduction in Children and Adolescents. Pediatrics 2011;128:S213 2. NCEP Expert Panel. Circulation 2004;110:227 Current Interpretive Data was last revised on 2018. Testing performed by: [address] [address] HDL 35(L) >=40 mg/dL ANUJ Comment: Interpretive Data Ages < or = 19 years Acceptable: >45 mg/dL Borderline low: 40-45 mg/dL Low: <40 mg/dL Ages > or = 20 years Desirable: >or= 60 mg/dL Low: <40 mg/dL Literature References: 1. Expert Panel on Integrated Guidelines for Cardiovascular Health and Risk Reduction in Children and Adolescents. Pediatrics 2011;128:S213 2. NCEP Expert Panel. Circulation 2004;110:227 Current Interpretive Data was last revised on 2018. Testing performed by: [address] [address] LDL, calculated 75 <=129 mg/dL ANUJ Comment: Interpretive Data Ages < or = 19 years Acceptable: <110 mg/dL Borderline high: 110-129 mg/dL High: >or= 130 mg/dL Ages > or = 20 years Optimal: <100 mg/dL Near optimal: 100-129 mg/dL Borderline high: 130-159 mg/dL High: >160 mg/dL Literature References: 1. Expert Panel on Integrated Guidelines for Cardiovascular Health and Risk Reduction in Children and Adolescents. Pediatrics 2011;128:S213 2. NCEP Expert Panel. Circulation 2004;110:227 Current Interpretive Data was last revised on 2018. Testing performed by: [address] [address] Non-HDL Cholesterol 100 mg/dL ANUJ BURKETT Comment: Interpretive Data Ages < or = 19 years Acceptable: <120 mg/dL Borderline high: 120-144 mg/dL High: >145 mg/dL Ages > or = 20 years When triglycerides are >200 mg/dL, Non-HDL cholesterol is a secondary target of therapy with treatment goals that are 30 mg/dL greater than the LDL cholesterol target. Literature References: 1. Expert Panel on Integrated Guidelines for Cardiovascular Health and Risk Reduction in Children and Adolescents. Pediatrics 2011;128:S213 2. NCEP Expert Panel. Circulation 2004;110:227 Current Interpretive Data was last revised on 2018. Testing performed by: [address] [address] Chol/HDL ratio 4 ANUJ BURKETT Comment:Testing performed by : [facility], [address] [place] [address]., [id number] Blood 05/05/2024 9:06 AM CDT 05/05/2024 11:54 AM CDT us Elvin VALLE LAB BLOOD ORDERABLES Final Resu lt ANUJ [address] [facility] Department [place] [address] * Screening Mammogram Bilateral W Meet (02/19/2024 12:08 PM CDT) Anatomical Region Laterality Modality Breast Bilateral Mammography Impressions 02/19/2024 12:20 PM CDT BI-RADS ATLAS category (overall): 1 - Negative There is no mammographic evidence of malignancy. A 1 year screening mammogram is recommended. The patient has been or will be contacted. We recommend annual screening mammography for women at average risk of breast cancer beginning at age 40, based on guidelines of the [employer] (ACR Practice Parameter for the Performance of Screening and Diagnostic Mammography) and [place] [employer]. For women with and elevated risk of breast cancer, please refer to the ACR Practice Parameter for specific screening recommendations. The patient will be entered into a reminder system with a target due date of 1 year for her next screening exam. Narrative 02/19/2024 12:20 PM CDT Screening Mammogram Bilateral W Meet: 02/19/24 The study was acquired using full field digital technology and interpreted from soft copy. 2D digital mammographic views, as well as 3D digital tomosynthesis were performed in the CC and MLO projections. CLINICAL: Screening mammogram, encounter for No relevant medical history has been documented for this patient. No known family history of breast cancer. COMPARISONS: 07/04/2021 Screening Mammogram Bilateral W Meet 01/05/2020 US Breast Right Limited 01/05/2020 Diagnostic Mammogram Right W Meet 12/29/2019 Screening Mammogram Bilateral W Meet 10/19/2017 Screening Mammogram Bilateral W Meet BREAST TISSUE: The breasts have scattered areas of fibroglandular density. FINDINGS: No suspicious masses, suspicious calcifications, or other suspicious findings are seen within either breast. There has been no suspicious change. us Self Screening Mammogram IMG MAMMO PROCEDURES Fi nal Result * Dexa Axial Skeleton Bone Density 1 or 2 Site (12/29/2019 1:03 PM MOUTHPIECE MAKER) Anatomical Region Laterality Modality Body N/A Radiographic Annabella ging 12/29/2019 1:58 PM MOUTHPIECE MAKER Narrative 12/29/2019 2:00 PM MOUTHPIECE MAKER Patient Name: CORIN LAGUNAS Ordering Dr: Elvin Crowe PA-C, D.O.B: 1950 Exam Date: 12/29/19 1303 Age: 69 Sex: Female MR#: [id number] Loc: RADIOLOGY REPORT Order #[id number] Bone Density Bone Density Hip/Spine (STD) Signed EXAM DESCRIPTION: Bone Density Hip/Spine (STD) REASON FOR STUDY: 69 year old female with given history of postmenopausal status. Administrative Associate/Model: [employer] A (S/N [id number]) CLINICAL INFORMATION: Current height: 59 inches Maximum height: 60 inches Weight: 172 pounds Risk factors: Postmenopausal (menopause age 36-hysterectomy), use of glucocorticoids, use of hormone replacement therapy, no regular weight-bearing exercise or dairy product consumption, drinks caffeinated beverages. Reported use of vitamin-D. COMPARISON: 10/17/2017 FINDINGS: AP LUMBAR SPINE L1-L4: Total BMD is 1.063 g/cm2 T-score is 0.1 Most recent prior BMD was 1.068 g/cm2 There has been a 0.4% decrease in BMD which is not statistically significant. LEFT HIP: Current Total BMD is 0.880 g/cm2 T-score is -0.5 Most recent prior Total BMD was 0.837 g/cm2 There has been a 5.2% increase in BMD which is statistically significant. Current femoral neck BMD is 0.744 g/cm2 T-score is -0.9 IMPRESSION: Normal bone mineral density by WHO criteria. REFERENCE: Bone mineral density: Normal (T-score above or = -1.0) Low bone mass (T-score between -1.0 and -2.5) replaces the previously used term osteopenia Osteoporosis (T-score = or below -2.5) Medical evaluation for secondary causes of low bone mineral density may be appropriate. FRAX is a World Health Organization validated fracture risk assessment tool that calculates a person's 10 year probability of a major osteoporosis related fracture and hip fracture. According to the National Osteoporosis Foundation guidelines, postmenopausal women and men age 50 or older with low bone mass and a 10 year probability of a major osteoporosis related fracture = or greater than 20% or a 10 year probability of a hip fracture = or greater than 3% should be considered for treatment. For further information, including treatment recommendations, please refer to the 2013 ISCD Official Positions (http://www.iscd.org) and the NOF's Clinician's Guide to Prevention and Treatment of Osteoporosis (http://www.nof.org/professionals/clinical-guidelines) THIS IS AN ELECTRONICALLY VERIFIED FINAL REPORT 12/29/2019 2:00 PM - Electronically signed by Aamir Costa M.D. MD: Report ID: [id number] Reading Location: [id number] REPORT ELECTRONICALLY SIGNED IN OTHER VENDOR SYSTEM Resulting Agency Comment O Procedure Note Aamir Costa MD - 12/29/2019 Patient Name: CORIN LAGUNAS Dr: Elvin Crowe PA-C D.O.B: 1950 Exam Date: 12/29/19 1303 Age: 69 Sex: Female MR#: [id number] Loc: RADIOLOGY REPORT Order #[id number] Bone Density Bone Density Hip/Spine (STD) Signed EXAM DESCRIPTION: Bone Density Hip/Spine (STD) REASON FOR STUDY: 69 year old female with given history ofpostmenopausal status. Administrative Associate/Model: [employer] A (S/N [id number]) CLINICAL INFORMATION: Current height: 59 inches Maximum height: 60 inches Weight: 172 pounds Risk factors: Postmenopausal (menopause age 36-hysterectomy), use of glucocorticoids, use of hormone replacement therapy, no regularweight-bearing exercise or dairy product consumption, drinks caffeinated beverages. Reported use of vitamin-D. COMPARISON: 10/17/2017 FINDINGS: AP LUMBAR SPINE L1-L4: Total BMD is 1.063 g/cm2 T-score is 0.1 Most recent prior BMD was 1.068 g/cm2 There has been a 0.4% decrease in BMD which is not statisticallysignificant. LEFT HIP: Current Total BMD is 0.880 g/cm2 T-score is -0.5 Most recent prior Total BMD was 0.837 g/cm2 There has been a 5.2% increase in BMD which is statistically significant. Current femoral neck BMD is 0.744 g/cm2 T-score is -0.9 IMPRESSION: Normal bone mineral density by WHO criteria. REFERENCE: Bone mineral density: Normal (T-score above or = -1.0) Low bone mass (T-score between -1.0 and -2.5) replaces thepreviously used term osteopenia Osteoporosis (T-score = or below -2.5) Medical evaluation for secondary causes of low bone mineral density maybe appropriate. FRAX is a World Health Organization validated fracture risk assessmenttool that calculates a person's 10 year probability of a major osteoporosisrelated fracture and hip fracture. According to the National OsteoporosisFoundation guidelines, postmenopausal women and men age 50 or older with low bonemass and a 10 year probability of a major osteoporosis related fracture = or greater than 20% or a 10 year probability of a hip fracture = or greaterthan 3% should be considered for treatment. For further information, including treatment recommendations, pleaserefer to the 2013 ISCD Official Positions (http://www.iscd.org) and the NOF's Clinician's Guide to Prevention and Treatment of Osteoporosis (http://www.nof.org/professionals/clinical-guidelines) THIS IS AN ELECTRONICALLY VERIFIED FINAL REPORT 12/29/2019 2:00 PM - Electronically signed by Aamir Costa M.D. MD: Report ID: [id number] Reading Location: [id number] REPORT ELECTRONICALLY SIGNED IN OTHER VENDOR SYSTEM [facility] DXA PROCEDURES Final Result * Diabetic Eye Exam (12/17/2019) Historical Provider HEALTH MAINTENANCE Final Result * Colonoscopy (03/17/2019) Anatomical Region Laterality Modality Other Historical Provider ENDOSCOPY PROCEDURES [place]app[place] l Result * Hepatitis panel, acute (02/01/2018 8:35 AM CDT) HepBsAg NONREACT NONREACTIVE 02/01/2018 3:52 PM [facility] RESULTS Comment: Siemens CentaurXP using CARLIE (chemiluminescent immunoassay) technology. NONREACTIVE: IgM antibodies to Hepatitis B Surface antigen not detected. REACTIVE: IgM antibodies to Hepatitis B Surface antigen detected. Reactive results will be confirmed by neutralization testing. HBsAb qn < 3.10 mIU/mL 02/01/2018 3:44 PM [facility] Comment: Siemens CentaurXP using CARLIE (chemiluminescent immunoassay) technology. 9.99 IU/L or less.....NONREACTIVE: IgM antibodies to Hepatitis B Surface antibody are not detected. 10.00 IU/L or greater..REACTIVE: IgM antibodies to Hepatitis B Surface antibody are detected. Hep B core IgM NONREACT NONREACTIVE 8 7:00 PM CDT [facility] HISTORICAL RESULTS Comment: Siemens CentaurXP using CARLIE (chemiluminescent immunoassay) technology. NONREACTIVE: IgM antibodies to Hepatitis B Core antigen not detected. EQUIVOCAL: IgM antibodies to Hepatitis B Core antigen may or may not be present. Obtain a new specimen and retest. REACTIVE: IgM antibodies to Hepatitis B Core antigen detected. Hep A IgM NONREACT NONREACTIVE Comment: Siemens CentaurXP using CARLIE (chemiluminescent immunoassay) technology. NONREACTIVE: IgM antibodies to Hepatitis A not detected. This does not exclude possibility of exposure to Hepatitis A or early acute infection. EQUIVOCAL:IgM antibodies to Hepatitis A may or may not be present. Suggest recollection and retest. REACTIVE: Antibodies to Hepatitis A detected. Hep C Ab NONREACT NONREACTIVE Comment: Siemens CentaurXP using CARLIE (chemiluminescent immunoassay) technology. NONREACTIVE: Antibodies to Hepatitis C not detected. This does not exclude early acute Hepatitis C infection, possibility of exposure to Hepatitis C, antibodies below detection limit, or to lack of antibody reactivity to the antigen used in this assay. EQUIVOCAL: Antibodies to Hepatitis C may or may not be present. Sample to be confirmed by real-time PCR method. REACTIVE: Antibodies to Hepatitis C detected. 02/01/2018 8:35 AM CDT 02/01/2018 8:37 AM CDT [facility] MICROBIOLOGY - GENERAL LISBETH STONE Final Result Performing Organization Address City/State/[facility] Co de Phone Number [facility] HISTORICAL RESULTS from Last 3 Months or Most Recently Relevant to Health Maintenance Insurance DoctorC EXCHANGE MEDICARE MEDICARE [facility]UE [facility] CHOICE OOS MEDICARE BLUE [facility] CHOICE OOS BLUE [facility] OOS MEDICARE Care Teams Geospatial Engineer Relationship Specialty Start Date End Date Elvin Crowe PA [address] [place] [address] PCP - General Family Medicine 03/06/19 Sharan Murillo MD [address] [place] [address] Rheumatology 09/21/17
--- OUTSIDE RECORDS SUMMARY | 2025-11-04 20:19 | XMS_ITS | Encounter Summary ---
Author Organization [facility] Facility Care Team Providers Care Support Services Coordinator Name Role Phone Sharan Murillo MD Unavailable Elvin Crowe Primary Care Provider [phone] Encounter Details Date Type Department Care Team (Latest Contact Info) Description 09/07/2017 Orders Only MMG CLINCONV ProviderMalathi MD [address] [place] [address] Social History Tobacco Use Types Packs/Day Years Used Date Smoking Tobacco: Never Smokeless Tobacco: Never Comments Unknown Sex and Gender Information Value Date Recorded Sex Assigned at Not on file 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 Historical Provider Final Res ult documented in this encounter Visit Diagnoses Not on filedocumented in this encounter Care Teams Support Services Coordinator Relationship Specialty Start Date End Date Elvin Crowe PA [address] [place] [address] PCP - General Family Medicine 03/06/19 Sharan Murillo MD [address] [facility] 110 [facility] [address] [place] [address] Rheumatology 09/21/17 documented as of this encounter
--- OUTSIDE RECORDS SUMMARY | 2025-11-04 20:19 | XMS_ITS | Encounter Summary ---
Author Organization [facility] Address [address] [place] [address] Care Team Providers Care Manufacturing Finance Manager Name Role Phone Elvin Crowe PA-C Primary Care Provider [phone] Encounter Details Date Type Department Care Team (Late st Contact Info) Description 05/15/2020 Prep for Procedure [facility] [place] [address] Lior Salvador MD [address] [id number] Social History Tobacco Use Types Packs/Day Years Used Date Smoking Tobacco: Never Smokeless Tobacco: Never Alcohol Use Standard Drinks/Week Comments Yes 0 (1 standard drink = 0.6 oz pur e alcohol) rare Comments Unknown Sex and Gender Information Value Date Recorded Sex Assigned at Not on file 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 No / Unsure 05/18/2020 9:37 AM CDT documented as of this encounter Plan of Treatment Not on file documented as of this encounter Results * PRE-SURGICAL/PRE-PROCEDURE CORONAVIRUS (COVID 19) (05/15/2020 11:36 AM CDT) CORONAVIRUS SARS COV 2 PCR (RESP) NOT DETECTED NOT DETECTED 05/17/2020 12:44 AM CDT [facility] Comment: A Not Detected (negative) test result for this test means that SARS- CoV-2 RNA was not present in the specimen above the limit of detection. A negative result does not rule out the possibility of COVID-19 and should not be used as the sole basis for treatment or patient management decisions. If COVID-19 is still suspected, based on exposure history together with other clinical findings, re-testing should be considered in consultation with public health authorities. Laboratory test results should always be considered in the context of clinical observations and epidemiological data in making a final diagnosis and patient management decisions. Please review the Fact Sheets and FDA authorized labeling available for health care providers and patients using the following websites: https://www.[employer].Function Space/home/Covid-19/HCP/NAAT/fact-sheet2 https://www.[employer].Function Space/home/Covid-19/Patients/NAAT/ fact-sheet2 This test has been authorized by the FDA under an Emergency Use Authorization (EUA) for use by authorized laboratories. Due to the current public health emergency, [facility] is receiving a high volume of samples from a wide variety of swabs and media for COVID-19 testing. In order to serve patients during this public health crisis, samples from appropriate clinical sources are being tested. Negative test results derived from specimens received in non-commercially manufactured viral collection and transport media, or in media and sample collection kits not yet authorized by FDA for COVID-19 testing should be cautiously evaluated and the patient potentially subjected to extra precautions such as additional clinical monitoring, including collection of an additional specimen. Methodology: Nucleic Acid Amplification Test (NAAT) includes PCR or TMA Additional information about COVID-19 can be found at the [facility] website: www.[employer].Function Space/Covid19. Test performed at [facility] [place] [address] [place] [address] Director: WAYNE TINAJERO DO,MPH NASOPHARYNGEAL SWAB / Unknown 05/15/2020 11:36 AM CDT us Lior Salvador MD MICROBIOLOGY - GENERAL ORDFlavio STONE Final Result [facility] [address] [place], [place] [address] documented in this encounter Visit Diagnoses Diagnosis GERD (gastroesophageal reflux disease)- Primary Esophageal reflux documented in this encounter Additional Health Concerns Infection Onset Date Last Indicated Resolved Time COVID-19 Rule Out 05/15/2020 05/15/2020 05/17/2020 12:44 AM CDT documented as of this encounter Care Teams Manufacturing Finance Manager Relationship Specialty Start Date End Date Elvin Crowe PA-C PCP - General PHYSICIAN FLUE CLEANER 05/18/20 documented as of this encounter
--- OUTSIDE RECORDS SUMMARY | 2025-11-04 20:19 | XMS_ITS | Encounter Summary ---
Author Organization [facility] Facility Care Team Providers Care Coater Helper Name Role Phone Sharan Murillo MD Unavailable [phone] Elvin Crowe Primary Care Provider [phone] Encounter Details Date Type Department Care Team (Latest Contact Info) Description 02/17/2016 Orders Only MMG CLINCONV ProviderMalathi MD [address] [place] [address] Social History Tobacco Use Types Packs/Day Years Used Date Smoking Tobacco: Never Assessed Comments Unknown Sex and Gender Information Value Date Recorded Sex Assigned at Not on file 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 Historical Provider Final Res ult documented in this encounter Visit Diagnoses Not on filedocumented in this encounter Care Teams Coater Helper Relationship Specialty Start Date End Date Elvin Crowe PA [address] [place] [address] PCP - General Family Medicine 03/06/19 Sharan Murillo MD [address] [facility] 110 [facility] [address] [place] [address] Rheumatology 09/21/17 documented as of this encounter
--- OUTSIDE RECORDS SUMMARY | 2025-11-04 20:19 | XMS_ITS | Encounter Summary ---
Author Organization [facility] Facility Care Team Providers Care Tipple Boss Name Role Phone Sharan Murillo MD Unavailable [phone] Elvin Crowe Primary Care Provider [phone] Encounter Details Date Type Department Care Team (Latest Contact Info) Description 04/30/2017 Orders Only MMG CLINCONV ProviderMalathi MD [address] [place] [address] Social History Tobacco Use Types Packs/Day Years Used Date Smoking Tobacco: Never Assessed Comments Unknown Sex and Gender Information Value Date Recorded Sex Assigned at Not on file 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 Historical Provider [facility] EARNESTINE HENNING Final Result * CARDIOLOGY REPORT (04/30/2017 12:00 AM CDT) Anatomical Region Laterality Modality Other Narrative 04/30/2017 12:00 AM CDT Ordered by an unspecified provider. us Historical Provider [facility] EARNESTINE HENNING Final Result documented in this encounter Visit Diagnoses Not on filedocumented in this encounter Care Teams Tipple Boss Relationship Specialty Start Date End Date Elvin Crowe PA [address] [place] [address] PCP - General Family Medicine 03/06/19 Sharan Murillo MD [address] [place] [address] Rheumatology 09/21/17 documented as of this encounter
--- OUTSIDE RECORDS SUMMARY | 2025-11-04 20:19 | XMS_ITS | Encounter Summary ---
Author Organization 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 Historical Provider Final Res ult documented in this encounter Visit Diagnoses Not on filedocumented in this encounter Care Teams Pediatric Radiologist Relationship Specialty Start Date End Date Elvin Crowe PA [address] [place] [address] PCP - General Family Medicine 03/06/19 Sharan Murillo MD [address] [facility] 110 [facility] [address] [place] [address] Rheumatology 09/21/17 documented as of this encounter
--- NOTE | 2025-11-04 20:22 | ED_ITS ---
HPI - Syncope General Chief Complaint: Syncope Stated Complaint: syncope Time Seen by Provider: 11/04/25 19:45 Source: patient Mode of arrival: EMS Limitations: no limitations History of Present Illness HPI narrative: This is a 75 year old female that presents to the ER after a syncopal episode today. She started to have abdominal pain, felt like she needed to have a bowel movement. She then passed out. She has multiple episodes of emesis at home. Has had several episodes of diarrhea on arrival to the ER. Denies chest pain, shortness of breath, hematochezia melena. Related Data Allergies Allergy/AdvReac Type Severity Reaction Status Date / Time No Known Allergies Allergy Verified 11/04/25 19:32 Review of Systems 2 Review of Systems: All systems reviewed & are unremarkable except as noted in HPI and below PMFSH Past Medical History Medical History (Updated 11/05/25 @ 02:08 by Shae Kern PA-C) Diabetes mellitus Hyperlipidemia Hypertension Exam 2 Narrative: GENERAL: Uncomfortable, well-nourished, and in no acute distress. HEAD: Normocephalic, atraumatic. EYES: PERRLA and EOMI. ENT: Nares clear, no rhinorrhea or epistaxis. Mucous membranes moist. Oropharynx without tonsillar hypertrophy exudate or other lesions. NECK: Supple. No adenopathy or masses. CHEST: Clear to auscultation. No respiratory distress. No wheezes rales or rhonchi HEART: Regular rate and rhythm. No murmur heard. Normal peripheral pulses. ABDOMEN: Soft, nondistended, normal active bowel sounds. Mild tenderness to palpation throughout the abdomen, without guarding EXTREMITIES: Normal range of motion. No edema. SKIN: Warm, dry, no rash. NEURO: No focal deficits. Alert and oriented x3. PSYCH: Normal mood and affect Course Vital Signs Vital signs: Vital Signs Temperature 97.9 F 11/04/25 19:05 Pulse Rate 66 11/04/25 19:05 Respiratory Rate 24 H 11/04/25 19:05 Blood Pressure 97/61 L 11/04/25 19:05 Pulse Oximetry 100 11/04/25 19:05 Oxygen Delivery Room Air 11/04/25 19:05 Temperature 97.9 F 11/04/25 19:05 Pulse Rate 54 L 11/05/25 00:10 Respiratory Rate 12 11/04/25 20:16 Blood Pressure 85/57 L 11/04/25 20:16 Pulse Oximetry 98 11/04/25 19:40 Oxygen Delivery Room Air 11/04/25 19:05 Critical Care Time Critical Care Time Critical Care Time: Yes Time Type: Intermittent Initial evaluation, discuss w/ involved parties, attempting to gather old records: 10 minutes Documenting medical record: 5 minutes Review of results (EKG's, labs, imaging): 5 minutes Serial repeat bedside evaluation: 10 minutes Discussing case with multiple memebers of the care team and consultants: 5 minutes Total Critical Care Time: 35 Discharge Plan Discharge Clinical Impression: Syncope due to orthostatic hypotension, Colitis, PATITO (acute kidney injury), Elevated troponin Patient Disposition: Still a Patient Condition: Serious Patient Language: Greenlandic Follow-up/Referrals: Amrita,Elvin Diana PA-C [Primary Care Provider] [facility] Narrative Medical decision making narrative: Patient presents to the emergency department for a syncopal episode after abdominal pain and vomiting. Hypertensive upon arrival, this normalized with IV fluids. She is afebrile and nontoxic appearing. CBC with leukocytosis to 27.1. Metabolic panel with evidence of dehydration. Urine a possible evidence of infection. Sent for culture. Blood cultures sent. Stool culture sent. C diff negative. CT brain without acute findings. EKG without acute ST changes, baseline troponin is elevated. No chest pain at this time. CTA chest PE with abdomen and pelvis obtained. Shows colitis and proctitis. Patient started on IV antibiotics. Patient will be admitted to the hospitalist service for further management Differential Diagnosis Differential Diagnosis: syncope, orthostatic hypotension, dehydration, electrolyte derangement, PATITO, UTI, colitis Lab Data [facility] Lab Attestation statement: I personally reviewed the patient's lab results. 11/04/25 23:29 11/04/25 23:29 Labs: Lab Results 11/04/25 11/04/25 11/04/25 Range/Units 23:29 23:29 23:29 WBC 27.1 H (4.5-10.0) K/mm3 RBC 4.77 (4.2-5.4) M/mm3 Hgb 13.6 (12.0-15.0) g/dL Hct 41.6 (37.0-47.0) % MCV 87.2 (80-100) fl MCH 28.5 (26-34) pg MCHC 32.7 (32-36) g/dl RDW 14.9 H (11.5-14.5) % Plt Count 360 (150-375) k/mm3 MPV 9.7 (7.4-10.4) fl Immature Gran % (Auto) Not Reportable Neut % (Auto) Not Reportable Lymph % (Auto) Not Reportable [place] % (Auto) Not Reportable Eos % (Auto) Not Reportable Baso % (Auto) Not Reportable Lymph # (Auto) Not Reportable [place] # (Auto) Not Reportable Eos # (Auto) Not Reportable Baso # (Auto) Not Reportable Abs Immat Gran (auto) Not Reportable Absolute Neuts (auto) Not Reportable Absolute Nucleated RBC Not Reportable Total Counted 100 Neutrophils % (Manual) 84 H (46-73) % Band Neutrophils % 6 (0-6) % Lymphocytes % (Manual) 8.0 L (18-44) % Monocytes % (Manual) 2 L (3-9) % Nucleated RBC % Not Reportable Abs Neuts (Manual) 24.39 H (1.3-6.7) K/mm3 Abs Lymphs (Manual) 2.16 (1.1-4.5) K/mm3 Abs Monocytes (Manual) 0.54 (0.1-0.90) K/mm3 Platelet Estimate Adequate (Adequate) Large Platelets Present Poikilocytosis 1+ Anisocytosis 1+ Ovalocytes 1+ Abbey Cells 1+ Schistocytes None seen Sodium 137 (137-145) mmol/L Potassium 3.4 (3.4-5.0) mmol/L Chloride 105 (98-107) mmol/L Carbon Dioxide 25 (22-30) mmol/L Anion Gap 7 (4-12) mmol/L BUN 23 H (7-17) mg/dL Creatinine 1.40 H (0.7-1.0) mg/dL Estim Creat Clear Calc Not Reportable Estimated GFR 37 L (59 - ) Glucose 122 H (65-110) mg/dL Calcium 9.3 (8.4-10.2) mg/dL Total Bilirubin 0.7 (0.2-1.3) mg/dL AST 31 (14-36) U/L ALT 34 (6-35) U/L Alkaline Phosphatase 112 (38-126) U/L Troponin I 0.178 H* (0.000-0.034) ng/mL Total Protein 6.6 (6.3-8.2) g/dL Albumin 3.8 (3.5-5.1) g/dL Lipase 138 (23-300) U/L Urine Color Urine Appearance Urine pH Ur Specific [place] Urine Protein Urine Glucose (UA) Urine Ketones Ur Blood (Man) Urine Nitrate Urine Bilirubin Urine Urobilinogen Leukocyte Esterase Rfl C. difficile (PCR) Negative (NEGATIVE) Influenza A (RT-PCR) Negative Cancelled (Negative) Influenza B (RT-PCR) Negative Cancelled (Negative) RSV (RT-PCR) Negative (Negative) SARS-CoV-2 RNA (RT-PCR) Negative (Negative) 11/04/25 11/05/25 Range/Units 23:29 01:21 WBC (4.5-10.0) K/mm3 RBC (4.2-5.4) M/mm3 Hgb (12.0-15.0) g/dL Hct (37.0-47.0) % MCV (80-100) fl MCH (26-34) pg MCHC (32-36) g/dl RDW (11.5-14.5) % Plt Count (150-375) k/mm3 MPV (7.4-10.4) fl Immature Gran % (Auto) Neut % (Auto) Lymph % (Auto) [place] % (Auto) Eos % (Auto) Baso % (Auto) Lymph # (Auto) [place] # (Auto) Eos # (Auto) Baso # (Auto) Abs Immat Gran (auto) Absolute Neuts (auto) Absolute Nucleated RBC Total Counted Neutrophils % (Manual) (46-73) % Band Neutrophils % (0-6) % Lymphocytes % (Manual) (18-44) % Monocytes % (Manual) (3-9) % Nucleated RBC % Abs Neuts (Manual) (1.3-6.7) K/mm3 Abs Lymphs (Manual) (1.1-4.5) K/mm3 Abs Monocytes (Manual) (0.1-0.90) K/mm3 Platelet Estimate (Adequate) Large Platelets Poikilocytosis Anisocytosis Ovalocytes Abbey Cells Schistocytes Sodium (137-145) mmol/L Potassium (3.4-5.0) mmol/L Chloride (98-107) mmol/L Carbon Dioxide (22-30) mmol/L Anion Gap (4-12) mmol/L BUN (7-17) mg/dL Creatinine (0.7-1.0) mg/dL Estim Creat Clear Calc Estimated GFR (59 - ) Glucose (65-110) mg/dL Calcium (8.4-10.2) mg/dL Total Bilirubin (0.2-1.3) mg/dL AST (14-36) U/L ALT (6-35) U/L Alkaline Phosphatase (38-126) U/L Troponin I (0.000-0.034) ng/mL Total Protein (6.3-8.2) g/dL Albumin (3.5-5.1) g/dL Lipase (23-300) U/L Urine Color Pending Urine Appearance Pending Urine pH Pending Ur Specific [place] Pending Urine Protein Pending Urine Glucose (UA) Pending Urine Ketones Pending Ur Blood (Man) Pending Urine Nitrate Pending Urine Bilirubin Pending Urine Urobilinogen Pending Leukocyte Esterase Rfl Pending C. difficile (PCR) (NEGATIVE) Influenza A (RT-PCR) (Negative) Influenza B (RT-PCR) (Negative) RSV (RT-PCR) (Negative) SARS-CoV-2 RNA (RT-PCR) Cancelled (Negative) Imaging Data Radiologist's impression: ITS Impressions Head CT 11/04/25 20:45 IMPRESSION: 1. No acute intracranial abnormality. Chest X-Ray 11/04/25 21:12 IMPRESSION: 1: NO ACUTE CARDIOPULMONARY DISEASE. CTA chest PE with abdomen pelvis: No PE. Atherosclerotic changes of the aorta. No aneurysm or dissection. 3 mm left lung nodule. Probable trace left pleural effusion. Small pericardial effusion. Wall thickening of the rectum, descending colon, transverse colon concerning for colitis and proctitis. Fluid and gas-filled small bowel loops may represent enteritis. All thickening of the stomach concerning for gastritis. Small amount of ascites. Prominence of the bladder wall. ECG Data EKG #1: ECG completion date: 11/05/25 bradycardia, sinus rhythm, no ST changes and normal QT
[2025-11-04 23:40] LABS: Hematocrit 41.6 % (37.0-47.0); Hemoglobin 13.6 g/dL (12.0-15.0); Mean Corpuscular HGB Conc 32.7 g/dl (32-36); Mean Corpuscular Hemoglobin 28.5 pg (26-34); Mean Corpuscular Volume 87.2 fl (80-100); Platelet Count Result 360 k/mm3 (150-375); Red Blood Count 4.77 M/mm3 (4.2-5.4); White Blood Count 27.1 K/mm3 (4.5-10.0)
[2025-11-04 23:51] LABS: Alanine Aminotransferase 34 U/L (6-35); Albumin Level 3.8 g/dL (3.5-5.1); Alkaline Phosphatase 112 U/L (38-126); Anion Gap 7 mmol/L (4-12); Aspartate Amino Transferase 31 U/L (14-36); Bilirubin,Total 0.7 mg/dL (0.2-1.3); Blood Urea Nitrogen 23 mg/dL (7-17); Calcium 9.3 mg/dL (8.4-10.2); Carbon Dioxide 25 mmol/L (22-30); Chloride 105 mmol/L (98-107); Estimated Glomerular Filt Rate 37; Glucose 122 mg/dL (65-110); Lipase 138 U/L (23-300); Potassium 3.4 mmol/L (3.4-5.0); Sodium 137 mmol/L (137-145); Total Protein 6.6 g/dL (6.3-8.2)
[2025-11-05] VITALS (18 sets, daily range): BP systolic 140–179; BP diastolic 45–78; PULSE 54–91; RESP 14–21; TEMP 36.5–36.9; O2SAT 97–100; BMI 22.4
[2025-11-05 00:12] LABS: Troponin I 0.178 ng/mL (0.000-0.034)
[2025-11-05] MEDS: SODIUM CHLORIDE 0.9% IV 1,000 ML 999 ML IV CONT (00:14)
[2025-11-05 00:17] LABS: Influenza A QL RT-PCR Negative (Negative); Influenza B QL RT-PCR Negative (Negative); RSV RNA, RT-PCR Negative (Negative); SARS-CoV-2 RNA PCR Negative (Negative)
[2025-11-05 00:28] LABS: Anisocytosis 1+; Band Neutrophils Percent 6 % (0-6); Lymphocytes Absolute Manual 2.16 K/mm3 (1.1-4.5); Lymphocytes Percent Manual 8.0 % (18-44); Monocytes Absolute Manual 0.54 K/mm3 (0.1-0.90); Monocytes Percent Manual 2 % (3-9); Neutrophils Absolute Manual 24.39 K/mm3 (1.3-6.7); Neutrophils Percent Manual 84 % (46-73); Poikilocytosis 1+; Total Cells Counted 100
[2025-11-05 00:29] LABS: Burr Cells 1+; Ovalocytes 1+; Schistocytes None Seen
--- NOTE | 2025-11-05 00:36 | ECG_ITS ---
Test Date: 2025-11-05 00:36:00 Measurements Intervals [place] Rate: 55 P: 60 [place]: 167 QRS: -17 QRSD: 73 T: 60 QT: 418 QTc: 401 Interpretive Statements SINUS BRADYCARDIA NONSPECIFIC T-WAVE ABNORMALITY- ANTERIOR LEADS BORDERLINE ECG No previous ECG available for comparison Electronically Signed On 11-05-2025 09:10:35 ELECTRONIC ASSEMBLER GROUP LEADER by Ferdinand Santana D.O.
[2025-11-05 00:57] LABS: Toxigenic C. Diff NEGATIVE (NEGATIVE)
[2025-11-05] MEDS: PIPERACILLIN/TAZOBACTAM SOD 3.375 GM in SODIUM CHLORIDE 0.9% IV 50 ML 100 ML IVPB (01:03)
[2025-11-05] MEDS: LACTATED RINGERS 1,000 ML 999 ML IV CONT (01:03)
[2025-11-05 01:56] LABS: Add Urine Microscopic? YES; Appearance Urine Cloudy (Clear); Glucose Urine UA Negative (Negative); Leukocyte Esterase Ur 2+ LEU/UL (Negative); Need Manual Microscopic Reviewed; Nitrate Urine Negative (Negative); Non Pathogenic Casts >20; Specific Grav Ur 1.038 (1.001-1.035)
[2025-11-05] MEDS: FAMOTIDINE 20 MG/2 ML VIAL IV PUSH (02:08)
--- NOTE | 2025-11-05 03:08 | WPCEDHO ---
ED Hand Off Checklist All vitals saved: y IV Site documented: y All med administrations documented: y Triage Note Triage Note Pt to ED via EMS from home c/o 11/04/25 19:05 syncopal episode. Pt also had N/V . Ems reports pt was initially a little confused, now a&ox4. Pt very diaphoretic upon arrival, c/ o needing to have BM immediately. Pt states she remembers trying to have a BM at home, had lots of abd pain and then doesn't remember anything else. Allergies No Known Allergies Allergy (Verified 11/04/25 19:32) Administered/Completed Medications Discontinued Medications Famotidine (Famotidine 20 Mg/2 Ml Vial) 20 mg IV PUSH ONCE STA Stop: 11/05/25 01:53 Last Admin: 11/05/25 02:08 Dose: 20 mg Documented By: SANTOS Hydromorphone HCl (Hydromorphone Hcl Inj (*Crx) 1 Mg/Ml Syr) Confirm Administered Dose 1 mg .ROUTE .STK-MED ONE Stop: 11/04/25 23:12 Last Admin: 11/05/25 00:15 Dose: Not Given Documented By: SANTOS Non-Admin Reason: Patient Refuses Sodium Chloride (Normal Saline Iv) 1,000 mls @ 999 mls/hr IV CONT .Q1H1M STA Stop: 11/04/25 20:45 Last Infusion: 11/05/25 01:19 Dose: Infused Documented By: Admin: 11/05/25 00:14 Dose: 999 mls/hr Documented By: SANTOS Piperacillin Sod/Tazobactam (Sod 3.375 gm/ Sodium Chloride) 50 mls @ 100 mls/hr IVPB ONCE STA Stop: 11/05/25 00:45 Last Infusion: 11/05/25 01:38 Dose: Infused Documented By: Admin: 11/05/25 01:03 Dose: 100 mls/hr Documented By: SANTOS Lactated Ringer's (Lr - Lactated Ringers Iv) 1,000 mls @ 999 mls/hr IV CONT .Q1H1M STA Stop: 11/05/25 01:39 Last Infusion: 11/05/25 02:09 Dose: Infused Documented By: Admin: 11/05/25 01:03 Dose: 999 mls/hr Documented By: SANTOS Interventions/Assessments Cardiac Monitoring Start: 11/04/25 19:02 Freq: Status: Active Protocol: Document 11/05/25 00:10 SAK (Rec: 11/05/25 00:11 SAK [id number]) Associate Veterinarian Assessment Associate Veterinarian Yes Applied Pulse Rate (60-100) 54 L EKG Rythm Sinus Bradycardia IV / Saline Lock, Insert Start: 11/04/25 19:45 Freq: STAT Status: Active Protocol: Document 11/04/25 23:45 SAK (Rec: 11/04/25 23:45 SAK [id number]) IV Assessment Peripheral Access Right Forearm IV Catheter Access Initiated IV Insertion Date 11/04/25 IV Insertion Time 23:45 Catheter Gauge 20 IV Insertion 1 Attempts Ultrasound Used for No Placement IV Site Assessment WNL IV Care and WNL Maintenance Last Vital Signs Temperature 97.9 F 11/04/25 19:05 Pulse Rate 54 L 11/05/25 00:10 Respiratory Rate 12 11/04/25 20:16 Pulse Oximetry 98 11/04/25 19:40 Blood Pressure 85/57 L 11/04/25 20:16 Blood Pressure Mean 66 11/04/25 20:16 Oxygen Delivery Room Air 11/04/25 19:05 Weight 49 kg 11/04/25 19:05 Last Result - Abnormals Only WBC 27.1 K/mm3 (4.5-10.0) H 11/04/25 23:29 RDW 14.9 % (11.5-14.5) H 11/04/25 23:29 Neutrophils % (Manual) 84 % (46-73) H 11/04/25 23:29 Lymphocytes % (Manual) 8.0 % (18-44) L 11/04/25 23:29 Monocytes % (Manual) 2 % (3-9) L 11/04/25 23:29 Abs Neuts (Manual) 24.39 K/mm3 (1.3-6.7) H 11/04/25 23:29 BUN 23 mg/dL (7-17) H 11/04/25 23:29 Creatinine 1.40 mg/dL (0.7-1.0) H 11/04/25 23:29 Estimated GFR 37 (59-) L 11/04/25 23:29 Glucose 122 mg/dL (65-110) H 11/04/25 23:29 Troponin I 0.178 ng/mL (0.000-0.034) H* 11/04/25 23:29 Urine Appearance Cloudy (Clear) H 11/05/25 01:21 Ur Specific [place] 1.038 (1.001-1.035) H 11/05/25 01:21 Urine Protein 1+ mg/dL (Negative) H 11/05/25 01:21 Ur Blood (Man) 1+ (Negative) H 11/05/25 01:21 Leukocyte Esterase Rfl 2+ JOLENE/UL (Negative) H 11/05/25 01:21 Urine RBC 3-5 /hpf (0-2) H 11/05/25 01:21 Urine WBC 11-20 /hpf (0-3) H 11/05/25 01:21 Most Recent Suicide Severity Rating Suicide Severity Rating NO RISK INDICATED 11/04/25 19:05
--- NOTE | 2025-11-05 03:57 | ADMGEN ---
This patient, Corin Lagunas, was admitted to IMU Room 206-02. Patient/family oriented to hospital policies and general routines including ID bracelet, bed and alarms, visiting hours, pain management, procedures, bathroom and other care routines, personal items, smoking policy, room service/diet, and visiting hours. Information on how to activate the Rapid Response Team has been discussed. Patient/Family are encouraged to report perceived risks to care and to ask questions if they do not understand what they are told or what they should do.
[2025-11-05] MEDS: SODIUM CHLORIDE 0.9% IV 1,000 ML 100 ML IV CONT ×2 (05:04→17:58)
--- NOTE | 2025-11-05 05:12 | PM.IMHP2 ---
H&P: HPI History of Present Illness Date/Time: 11/05/25 05:12 Chief Complaint: Passed out while on the toilet Narrative: 75-year-old female with a past medical history of essential hypertension, GERD, restless leg syndrome and type 2 diabetes mellitus who presented to the ER via EMS after having a syncopal and felt as if she needed to have a bowel movement. She strain to go to the bathroom but was unable to have a bowel movement. She then stood up and that the next thing she knew she woke up on the floor. When she woke up she had several episodes of emesis. She reported that she was extremely diaphoretic and chilled. She reports that she has never sweat that much in her life. Once she arrived to the ER she had several episodes of diarrhea with associated episodes of diaphoresis and intermittent low blood pressures. She did not have any hematochezia or melena she denied any chest pain or shortness of breath. She denies any recent ill contacts or antibiotic exposures. In the ER patient was afebrile and had intermittent mild [place] [address] normal hemoglobin and a mildly elevated BUN and creatinine at 23 and 1.4. Initial troponin was elevated at 0.178 and UA was cloudy with slightly elevated urine specific gravity 2+ esterase but only 11-20 wbc's and rare bacteria with greater than 20 casts. C diff PCR influenza RSV and COVID PCR were all negative. CT of the brain demonstrated no acute intercranial process. And CTA of the chest abdomen pelvis on my review demonstrated fluid-filled edematous colon. Stat read interpretation demonstrated thickening of the rectum, descending colon and transverse colon concerning for colitis and proctitis with fluid and gas-filled small bowel loops representing enteritis in the appropriate setting and wall thickening of the stomach especially gastric antrum raising concern for gastritis. With a small amount of ascites. Prominence of the bladder wall may be at least in part due to underdistention. Stomach was also distended with ingested material fluid and hyperdense material. Also in a central findings of small pericardial effusion and probable trace left pleural effusion. Patient received a little over 30 mL/kilos fluid bolus in the ER with resolution of hypotension. She also was started on Zosyn for suspected colitis and or gastroenteritis. Patient was admitted to the IMU for observation given elevated troponins and sepsis. Review of Systems Review of Systems: 12 systems were reviewed with pertinent positives and negatives per HPI. Except as documented in the HPI, all other systems were reviewed and are negative. [facility] Past Medical History Medical History (Updated 11/05/25 @ 08:42 by Uyen Thapa DO) Diabetes mellitus Hyperlipidemia Hypertension Surgical History Surgical History (Updated 11/05/25 @ 08:42 by Uyen Thapa DO) Status post cataract extraction of both eyes with insertion of intraocular lens History of tonsillectomy and adenoidectomy History of appendectomy Hx of cholecystectomy History of total abdominal hysterectomy and bilateral salpingo-oophorectomy Endometriosis Social History Social History (Updated 11/05/25 @ 08:41 by Uyen Thapa DO) Social History: The patient lives with her they have been together for years but 33 years. She has 1 son. She is a lifelong nonsmoker and does not drink alcohol or use illicit substances. She is independent in activities of daily living. 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 Respiratory is code status: Full code Surrogate decision maker: Smoking status: Never smoker Lack of Transportation: No Lack of Food: Never True Current Housing: I Have Housing Concerned About Future Housing: No Difficulty Paying Gas/Electric Bills: No Difficulty Paying for Meds: No Currently Unemployed: No Education: High School Diploma/GED Difficulty w/ Childcare or Family Care: No Spiritual care concerns: No Meds Home Medications and Allergies Home Medications ?Medication ?Instructions ?Recorded ?Confirmed ?Type famotidine 40 mg tablet mg 11/05/25 History hydrochlorothiazide 50 mg tablet mg 11/05/25 History linaclotide 290 mcg capsule mcg 11/05/25 History (Linzess) lisinopril 40 mg tablet mg 11/05/25 History omeprazole 40 mg capsule,delayed mg 11/05/25 History release ropinirole 1 mg tablet mg 11/05/25 History tirzepatide 5 mg/0.5 mL mg subcut 11/05/25 History subcutaneous pen injector (Leighann) Allergies Allergy/AdvReac Type Severity Reaction Status Date / Time No Known Allergies Allergy Verified 11/05/25 04:10 Vital Signs Vital Signs - 24 hr 11/04/25 19:05 11/04/25 19:31 11/04/25 19:40 Temperature 97.9 F Pulse Rate 66 55 L 71 Respiratory Rate 24 H 12 24 H Blood Pressure 97/61 L 112/89 Pulse Oximetry 100 100 98 Oxygen Delivery Room Air 11/04/25 19:45 11/04/25 19:47 11/04/25 20:00 Temperature Pulse Rate 63 65 61 Respiratory Rate 15 17 20 Blood Pressure 103/66 Pulse Oximetry Oxygen Delivery 11/04/25 20:01 11/04/25 20:15 11/04/25 20:16 Temperature Pulse Rate 58 L 72 86 Respiratory Rate 11 L 23 H 12 Blood Pressure 116/71 85/57 L Pulse Oximetry Oxygen Delivery 11/04/25 20:17 11/05/25 00:10 11/05/25 01:16 Temperature Pulse Rate 85 54 L 81 Respiratory Rate 13 18 Blood Pressure Pulse Oximetry 100 Oxygen Delivery 11/05/25 01:30 11/05/25 01:38 11/05/25 02:18 Temperature Pulse Rate 91 74 65 Respiratory Rate 17 14 16 Blood Pressure 161/65 H Pulse Oximetry 97 100 Oxygen Delivery 11/05/25 02:30 11/05/25 02:31 11/05/25 03:08 Temperature Pulse Rate 65 62 59 L Respiratory Rate 18 18 16 Blood Pressure 145/60 H Pulse Oximetry 100 100 100 Oxygen Delivery 11/05/25 03:15 11/05/25 03:50 Temperature 97.9 F Pulse Rate 59 L 58 L Respiratory Rate 16 16 Blood Pressure 140/78 147/55 H Pulse Oximetry 100 100 Oxygen Delivery Exam Narrative: Weight 50 kg BMI 22.3 Results Labs Labs: Laboratory Tests 11/04/25 23:29 11/04/25 23:29 11/04/25 11/04/25 11/04/25 23:29 23:29 23:29 WBC 27.1 H RBC 4.77 Hgb 13.6 Hct 41.6 MCV 87.2 MCH 28.5 MCHC 32.7 RDW 14.9 H Plt Count 360 MPV 9.7 Immature Gran % (Auto) Not Reportable Neut % (Auto) Not Reportable Lymph % (Auto) Not Reportable [place] % (Auto) Not Reportable Eos % (Auto) Not Reportable Baso % (Auto) Not Reportable Lymph # (Auto) Not Reportable [place] # (Auto) Not Reportable Eos # (Auto) Not Reportable Baso # (Auto) Not Reportable Abs Immat Gran (auto) Not Reportable Absolute Neuts (auto) Not Reportable Absolute Nucleated RBC Not Reportable Total Counted 100 Neutrophils % (Manual) 84 H Band Neutrophils % 6 Lymphocytes % (Manual) 8.0 L Monocytes % (Manual) 2 L Nucleated RBC % Not Reportable Abs Neuts (Manual) 24.39 H Abs Lymphs (Manual) 2.16 Abs Monocytes (Manual) 0.54 Platelet Estimate Adequate Large Platelets Present Poikilocytosis 1+ Anisocytosis 1+ Ovalocytes 1+ [place] Cells 1+ Schistocytes None seen Sodium 137 Potassium 3.4 Chloride 105 Carbon Dioxide 25 Anion Gap 7 BUN 23 H Creatinine 1.40 H Estim Creat Clear Calc Not Reportable Estimated GFR 37 L Glucose 122 H Calcium 9.3 Total Bilirubin 0.7 AST 31 ALT 34 Alkaline Phosphatase 112 Troponin I 0.178 H* Total Protein 6.6 Albumin 3.8 Lipase 138 Urine Color Urine Appearance Urine pH Ur Specific [place] Urine Protein Urine Glucose (UA) Urine Ketones Ur Blood (Man) Urine Nitrate Urine Bilirubin Urine Urobilinogen Add Ur Microanalysis Leukocyte Esterase Rfl Urine RBC Urine WBC Ur Squamous Epith Cells Urine Bacteria Urine Casts Urine Mucus C. difficile (PCR) Negative Influenza A (RT-PCR) Negative Cancelled Influenza B (RT-PCR) Negative Cancelled RSV (RT-PCR) Negative SARS-CoV-2 RNA (RT-PCR) Negative 11/04/25 11/05/25 11/05/25 23:29 01:21 03:29 WBC RBC Hgb Hct MCV MCH MCHC RDW Plt Count MPV Immature Gran % (Auto) Neut % (Auto) Lymph % (Auto) [place] % (Auto) Eos % (Auto) Baso % (Auto) Lymph # (Auto) [place] # (Auto) Eos # (Auto) Baso # (Auto) Abs Immat Gran (auto) Absolute Neuts (auto) Absolute Nucleated RBC Total Counted Neutrophils % (Manual) Band Neutrophils % Lymphocytes % (Manual) Monocytes % (Manual) Nucleated RBC % Abs Neuts (Manual) Abs Lymphs (Manual) Abs Monocytes (Manual) Platelet Estimate Large Platelets Poikilocytosis Anisocytosis Ovalocytes [place] Cells Schistocytes Sodium Potassium Chloride Carbon Dioxide Anion Gap BUN Creatinine Estim Creat Clear Calc Estimated GFR Glucose Calcium Total Bilirubin AST ALT Alkaline Phosphatase Troponin I Pending Total Protein Albumin Lipase Urine Color Yellow Urine Appearance Cloudy H Urine pH 5.5 Ur Specific [place] 1.038 H Urine Protein 1+ H Urine Glucose (UA) Negative Urine Ketones Negative Ur Blood (Man) 1+ H Urine Nitrate Negative Urine Bilirubin Negative Urine Urobilinogen 1.0 Add Ur Microanalysis Reviewed Leukocyte Esterase Rfl 2+ H Urine RBC 3-5 H Urine WBC 11-20 H Ur Squamous Epith Cells Few Urine Bacteria Rare Urine Casts >20 Urine Mucus Present C. difficile (PCR) Influenza A (RT-PCR) Influenza B (RT-PCR) RSV (RT-PCR) SARS-CoV-2 RNA (RT-PCR) Cancelled Impressions Head CT 11/04/25 20:45 IMPRESSION: 1. No acute intracranial abnormality. Chest X-Ray 11/04/25 21:12 IMPRESSION: 1: NO ACUTE CARDIOPULMONARY DISEASE. EKG: Assessment and Plan Assessment and plan (1) Vasovagal syncope: Code(s): R55 - Syncope and collapse Status: Acute (2) Elevated troponin: Code(s): R79.89 - Other specified abnormal findings of blood chemistry Status: Acute (3) Colitis: Code(s): K52.9 - Noninfective gastroenteritis and colitis, unspecified Status: Acute (4) Sepsis: Qualifiers: Sepsis type: sepsis due to unspecified organism Sepsis acute organ dysfunction status: with acute organ dysfunction Severe sepsis acute organ dysfunction type: acute renal failure Acute renal failure type: unspecified Severe sepsis shock status: without septic shock Qualified Code(s): A41.9 - Sepsis, unspecified organism; R65.20 - Severe sepsis without septic shock; N17.9 - Acute kidney failure, unspecified Code(s): A41.9 - Sepsis, unspecified organism Status: Acute (5) Gastroenteritis: Code(s): K52.9 - Noninfective gastroenteritis and colitis, unspecified Status: Acute (6) PATITO (acute kidney injury): Code(s): N17.9 - Acute kidney failure, unspecified Status: Acute Plan The patient meets sepsis criteria with tachycardia, leukocytosis, and tachypnea. CT demonstrated colitis and gastroenteritis. Patient has been started on empiric antibiotic therapy with Zosyn after blood cultures and stool culture were obtained. Will will continue Zosyn and IV fluid hydration. The patient did have episodes of vasovagal syncope due to transient hypotension. Hypotension has resolved with 30 mL/kilos IV fluid administration. Patient does have elevated troponins likely secondary to demand ischemia from transient hypotension with underlying sepsis. Patient also has associated acute kidney injury due to hypovolemia and sepsis. Will repeat CBC troponin and BMP in a.m.. Will check a magnesium level to rule out of electrolyte disturbance. The patient has an abnormal urinalysis with only 2+ esterase 11-20 wbc's and rare bacteria but 20 casts. The patient is not having increased urinary frequency urgency or dysuria. Given lack of urinary symptoms this is more consistent with asymptomatic pyuria. The patient is home med rec was visualized from ambulatory record but has not been confirmed by nursing staff. Will defer resumption of home med rec to daytime hospitalist. Patient has been admitted as observation status. MEDICAL DECISION MAKING NARRATIVE -Spoke with the ED provider in detail regarding patient's evaluation, workup and management -Patient seen and examined at bedside -Collaborated with patient's nurse at the bedside in detail and addressed all concerns -Labs, electrolytes, radiology, investigations and test results personally reviewed and interpreted unless otherwise specified -ED/Consult/Nursing/Ancilliary notes on the chart reviewed and appreciated -applicable past medical records and labs were reviewed and unless stated otherwise. -Spoke with patient at bedside and diagnosis, plan of care was discussed and questions answered. Hospitalist [facility] Advance Care Plan I have confirmed that the patient's Advanced Care Plan is present, code status is documented, or surrogate decision maker is listed in patient medical record.: Yes Medication Reconciliation I have utilized all available resources to obtain, update and review the patients current medications (includes all prescriptions, OTC, herbals, cannabis, and nutritional supplements).: Yes
[2025-11-05 06:43] LABS: Troponin I 0.120 ng/mL (0.000-0.034)
--- NOTE | 2025-11-05 07:43 | P.PNIM_ITS ---
Assessment and Plan Assessment and Plan (1) Vasovagal syncope: Code(s): R55 - Syncope and collapse Status: Acute Assessment and Plan: Patient presents to the emergency department for a syncopal episode after ab dominal pain and vomiting. Metabolic panel with evidence of dehydration. CT brain without acute findings. EKG without acute ST changes, baseline troponin is elevated. No chest pain at this time. CTA chest PE with abdomen and pelvis obtained. Shows colitis and proctitis. - continue telemetry - obtain orthostatics VS (2) Elevated troponin: Code(s): R79.89 - Other specified abnormal findings of blood chemistry Status: Acute (3) Colitis: Code(s): K52.9 - Noninfective gastroenteritis and colitis, unspecified Status: Acute Assessment and Plan: zosyn started-will continue stool cultures obtained (4) Sepsis: Code(s): A41.9 - Sepsis, unspecified organism Status: Acute Assessment and Plan: RR24, bp 97/61, CBC- leukocytosis-27.1 pt was given IV fluids in ED- BP improved BC, UA/c/s, and stool cultures collected in ED c diff negative CTA chest PE with abdomen and pelvis obtained. Shows colitis and proctitis. Patient started on IV antibiotics piperacilli/tazobactram 3.375 q6h, started 11/05 will add lactic acid daily labs (5) Gastroenteritis: Code(s): K52.9 - Noninfective gastroenteritis and colitis, unspecified Status: Acute Assessment and Plan: CTA chest PE with abdomen and pelvis obtained. Shows colitis and proctitis. Patient started on IV antibiotics. IV fluids cdiff negative, stool cultures collected -piperacilli/tazobactram 3.375 q6h, started 11/05 (6) PATITO (acute kidney injury): Code(s): N17.9 - Acute kidney failure, unspecified Status: Acute Assessment and Plan: IV hydration monitor daily labs (7) UTI (urinary tract infection): Code(s): N39.0 - Urinary tract infection, site not specified Status: Acute Assessment and Plan: Urine a possible evidence of infection. follow urine c/s started on IV antibitocs, continue Medical Record Review I have reviewed the following patient records and this information was taken into consideration when formulating the assessment and plan.: previous labs Subjective Date/time seen: 11/05/25 07:43 Interval history: 75-year-old female with a past medical history of essential hypertension, GERD, restless leg syndrome and type 2 diabetes mellitus who presented to the ER via EMS after having a syncopal and felt as if she needed to have a bowel movement. She then passed out. This was followed by several episodes of emesis at home. Once she arrived to the ER she had several episodes of diarrhea with associated episodes of diaphoresis and intermittent low blood pressures. She did not have any hematochezia or melena she denied any chest pain or shortness of breath. She denies any recent ill contacts or antibiotic exposures. In the ER patient was afebrile and had intermittent mild [place]ady[place] [address] normal hemoglobin and a mildly elevated BUN and creatinine at 23 and 1.4. Initial troponin was elevated at 0.178 and UA was cloudy with slightly elevated urine specific gravity 2+ esterase but only 11-20 wbc's and rare bacteria with greater than 20 casts. C diff PCR influenza RSV and COVID PCR were all negative. CT of the brain demonstrated no acute intercranial process. And CTA of the chest abdomen pelvis on my review demonstrated fluid-filled edematous colon. Stat read interpretation demonstrated thickening of the rectum, descending colon and transverse colon concerning for colitis and proctitis with fluid and gas-filled small bowel loops representing enteritis in the appropriate setting and wall thickening of the stomach especially gastric antrum raising concern for gastritis. With a small amount of ascites. Prominence of the bladder wall may be at least in part due to underdistention. Stomach was also distended with ingested material fluid and hyperdense material. Also in a central findings of small pericardial effusion and probable trace left pleural effusion. Patient received a little over 30 mL/kilos fluid bolus in the ER with resolution of hypotension. She also was started on Zosyn for suspected colitis and or gastroenteritis. Patient was admitted to the IMU for observation given elevated troponins and sepsis. 11/05 pt is cinthya nd examined. c/o abd tenderness and cramping, no n/v. Denies feeling lightheaded. Review of Systems Review of Systems: All systems reviewed & are unremarkable except as noted in HPI and below Exam Narrative: Weight 50 kg BMI 22.3 Const: General: comfortable Other: very pleasant lady, calm and in no distress Resp: Effort & Inspection: normal respiratory effort Auscultation: clear to auscultation bilaterally Cardio: Rate: regular rate Rhythm: regular rhythm GI: GI Palp: Yes Soft to palpation and Yes Tenderness to palpation present (GI) Auscultation: normal bowel sounds Skin: General skin exam: normal color Neuro: Speech: normal speech Psych: Affect: normal affect Objective Data Vital Signs Vital Signs: Vital Signs - 24 hr 11/04/25 19:05 11/04/25 19:31 11/04/25 19:40 Temperature 97.9 F Pulse Rate 66 55 L 71 Respiratory Rate 24 H 12 24 H Blood Pressure 97/61 L 112/89 Pulse Oximetry 100 100 98 Oxygen Delivery Room Air 11/04/25 19:45 11/04/25 19:47 11/04/25 20:00 Temperature Pulse Rate 63 65 61 Respiratory Rate 15 17 20 Blood Pressure 103/66 Pulse Oximetry Oxygen Delivery 11/04/25 20:01 11/04/25 20:15 11/04/25 20:16 Temperature Pulse Rate 58 L 72 86 Respiratory Rate 11 L 23 H 12 Blood Pressure 116/71 85/57 L Pulse Oximetry Oxygen Delivery 11/04/25 20:17 11/05/25 00:10 11/05/25 01:16 Temperature Pulse Rate 85 54 L 81 Respiratory Rate 13 18 Blood Pressure Pulse Oximetry 100 Oxygen Delivery 11/05/25 01:30 11/05/25 01:38 11/05/25 02:18 Temperature Pulse Rate 91 74 65 Respiratory Rate 17 14 16 Blood Pressure 161/65 H Pulse Oximetry 97 100 Oxygen Delivery 11/05/25 02:30 11/05/25 02:31 11/05/25 03:08 Temperature Pulse Rate 65 62 59 L Respiratory Rate 18 18 16 Blood Pressure 145/60 H Pulse Oximetry 100 100 100 Oxygen Delivery 11/05/25 03:15 11/05/25 03:50 11/05/25 06:00 Temperature 97.9 F Pulse Rate 59 L 58 L 63 Respiratory Rate 16 16 Blood Pressure 140/78 147/55 H Pulse Oximetry 100 100 Oxygen Delivery Intake/Output Intake/Output: Intake & Output 11/02/25 11/03/25 11/04/25 11/05/25 23:59 23:59 23:59 23:59 Intake Total 2049 Output Total Balance 2048 Meds/Results Medications: Active Medications Generic Name Dose Route Start Last Admin Trade Name Prudencio PRN Reason Stop Dose Admin Dextrose 12.5 gm 11/05/25 02:02 Dextrose 50% 25 Gm/50 Ml Syringe IV PUSH PRN PRN Hypoglycemia Protocol Glucagon 1 mg 11/05/25 02:02 Glucagon For Inj 1 Mg Vial IM PRN PRN Hypoglycemia Protocol Glucose 15 gm 11/05/25 02:02 Glucose Oral Gel 15 Gm Of Glucse In 37.5 Gm Tube PO PRN PRN Hypoglycemia Protocol Sodium Chloride 1,000 mls @ 100 mls/hr 11/05/25 02:05 11/05/25 05:04 Normal Saline Iv IV CONT 100 mls/hr .Q10H ZITA Administration Dextrose 1,000 mls @ 100 mls/hr 11/05/25 02:02 Dextrose 5% 1,000 Ml IVPB PRN PRN Hypoglycemia Protocol Piperacillin Sod/Tazobactam 50 mls @ 100 mls/hr 11/05/25 08:00 Sod 2.25 gm/ Sodium Chloride IVPB Q6H ZITA Ondansetron HCl 4 mg 11/05/25 02:02 Ondansetron Inj 4 Mg/2 Ml Vial IV PUSH Q4H PRN Nausea Radiology Results: ITS Impressions Head CT 11/04/25 20:45 IMPRESSION: 1. No acute intracranial abnormality. Chest X-Ray 11/04/25 21:12 IMPRESSION: 1: NO ACUTE CARDIOPULMONARY DISEASE. Chest/Abdomen/Pelvis CTA 11/05/25 07:21 IMPRESSION: 1. No pulmonary embolus. 2. Wall thickening of the left colon, consistent with colitis. Labs Labs: Laboratory Results - last 24 hr 11/04/25 11/04/25 11/04/25 23:29 23:29 23:29 WBC 27.1 H RBC 4.77 Hgb 13.6 Hct 41.6 MCV 87.2 MCH 28.5 MCHC 32.7 RDW 14.9 H Plt Count 360 MPV 9.7 Immature Gran % (Auto) Not Reportable Neut % (Auto) Not Reportable Lymph % (Auto) Not Reportable [place] % (Auto) Not Reportable Eos % (Auto) Not Reportable Baso % (Auto) Not Reportable Lymph # (Auto) Not Reportable [place] # (Auto) Not Reportable Eos # (Auto) Not Reportable Baso # (Auto) Not Reportable Abs Immat Gran (auto) Not Reportable Absolute Neuts (auto) Not Reportable Absolute Nucleated RBC Not Reportable Total Counted 100 Neutrophils % (Manual) 84 H Band Neutrophils % 6 Lymphocytes % (Manual) 8.0 L Monocytes % (Manual) 2 L Nucleated RBC % Not Reportable Abs Neuts (Manual) 24.39 H Abs Lymphs (Manual) 2.16 Abs Monocytes (Manual) 0.54 Platelet Estimate Adequate Large Platelets Present Poikilocytosis 1+ Anisocytosis 1+ Ovalocytes 1+ [place] Cells 1+ Schistocytes None seen Sodium 137 Potassium 3.4 Chloride 105 Carbon Dioxide 25 Anion Gap 7 BUN 23 H Creatinine 1.40 H Estim Creat Clear Calc Not Reportable Estimated GFR 37 L Glucose 122 H Calcium 9.3 Total Bilirubin 0.7 AST 31 ALT 34 Alkaline Phosphatase 112 Troponin I 0.178 H* Total Protein 6.6 Albumin 3.8 Lipase 138 Urine Color Urine Appearance Urine pH Ur Specific [place] Urine Protein Urine Glucose (UA) Urine Ketones Ur Blood (Man) Urine Nitrate Urine Bilirubin Urine Urobilinogen Add Ur Microanalysis Leukocyte Esterase Rfl Urine RBC Urine WBC Ur Squamous Epith Cells Urine Bacteria Urine Casts Urine Mucus C. difficile (PCR) Negative Influenza A (RT-PCR) Negative Cancelled Influenza B (RT-PCR) Negative Cancelled RSV (RT-PCR) Negative SARS-CoV-2 RNA (RT-PCR) Negative 11/04/25 11/05/25 11/05/25 23:29 01:21 06:04 WBC RBC Hgb Hct MCV MCH MCHC RDW Plt Count MPV Immature Gran % (Auto) Neut % (Auto) Lymph % (Auto) [place] % (Auto) Eos % (Auto) Baso % (Auto) Lymph # (Auto) [place] # (Auto) Eos # (Auto) Baso # (Auto) Abs Immat Gran (auto) Absolute Neuts (auto) Absolute Nucleated RBC Total Counted Neutrophils % (Manual) Band Neutrophils % Lymphocytes % (Manual) Monocytes % (Manual) Nucleated RBC % Abs Neuts (Manual) Abs Lymphs (Manual) Abs Monocytes (Manual) Platelet Estimate Large Platelets Poikilocytosis Anisocytosis Ovalocytes [place] Cells Schistocytes Sodium Potassium Chloride Carbon Dioxide Anion Gap BUN Creatinine Estim Creat Clear Calc Estimated GFR Glucose Calcium Total Bilirubin AST ALT Alkaline Phosphatase Troponin I 0.120 H* D Total Protein Albumin Lipase Urine Color Yellow Urine Appearance Cloudy H Urine pH 5.5 Ur Specific [place] 1.038 H Urine Protein 1+ H Urine Glucose (UA) Negative Urine Ketones Negative Ur Blood (Man) 1+ H Urine Nitrate Negative Urine Bilirubin Negative Urine Urobilinogen 1.0 Add Ur Microanalysis Reviewed Leukocyte Esterase Rfl 2+ H Urine RBC 3-5 H Urine WBC 11-20 H Ur Squamous Epith Cells Few Urine Bacteria Rare Urine Casts >20 Urine Mucus Present C. difficile (PCR) Influenza A (RT-PCR) Influenza B (RT-PCR) RSV (RT-PCR) SARS-CoV-2 RNA (RT-PCR) Cancelled
[2025-11-05 08:56] LABS: Magnesium 1.8 mg/dL (1.6-2.3)
[2025-11-05] MEDS: PIPERACILLIN/TAZOBACTAM SOD 2.25 GM in SODIUM CHLORIDE 0.9% IV 50 ML 100 ML IVPB ×3 (08:56→20:55)
[2025-11-05] MEDS: ONDANSETRON INJ 4 MG/2 ML VIAL IV PUSH (08:57)
[2025-11-05] MEDS: DICYCLOMINE HCL 10 MG CAPSULE 20 MG PO ×2 (09:41→18:01)
[2025-11-05 09:51] LABS: Troponin I 0.089 ng/mL (0.000-0.034)
[2025-11-05] MEDS: ACETAMINOPHEN 325 MG TABLET 650 MG PO (11:51)
--- NOTE | 2025-11-05 12:01 | PC.NURSE ---
This patient, Corin Lagunas, was transferred to [facility] on 11/05/25 at 1201. Personal belongings sent with patient. Report given to MOHINDER Mendoza. Appropriate documentation sent with patient. Patient resting in bed and voiced no complaints or concerns at this time. Call light in reach. Bed in low and locked position. Bed alarm on. Gennaro Mims RN.
[2025-11-05 16:26] LABS: Hematocrit 31.8 % (37.0-47.0); Hemoglobin 10.5 g/dL (12.0-15.0)
--- NOTE | 2025-11-05 16:46 | PC.NURSE ---
Received this pt from IMU with report from Alfreda. Pt to floor with IMU tele on. Pt does not have tele order. Pt states she has had 12+liquid bloody BMs with no H/H rechecks. Home meds not entered. Pt had significant cramping that PO bentyl ineffective for. Home med rec completed. Referring to physician slot machine key person list, Shelby was on til 1245. Her covering physician was Genaro. Call made to Genaro [phone]. Genaro agreeable stat H/H and follow-ups. Also received verbal orders for IVP morphine, GI consult. When I asked about home meds, he stated that if I needed anything further to call Alfonso. Call made to Alfonso at 1628, LVM. Alfonso to floor for another pt. I asked him about 323 pt. He states that this pt is not his. Explained it was hSelby's but she was off, and that Genaro stated all further calls were to go to him. He stated she should answer her phone til 1700. Explained she was off at 1245. When I called Shelby, she let me know that she was only on til 1145. Alfonso gave orders for tele on pt and only to resume requip and omeprazole.
[2025-11-05] MEDS: PANTOPRAZOLE 40 MG TABLET PO (20:53)
[2025-11-06] VITALS (9 sets, daily range): BP systolic 131–134; BP diastolic 48–65; PULSE 55–75; RESP 18–21; TEMP 36.2–37.4; O2SAT 98–100
[2025-11-06 00:53] LABS: Hematocrit 28.8 % (37.0-47.0); Hemoglobin 9.6 g/dL (12.0-15.0)
[2025-11-06] MEDS: DICYCLOMINE HCL 10 MG CAPSULE 20 MG PO ×2 (01:44→20:04)
[2025-11-06] MEDS: PIPERACILLIN/TAZOBACTAM SOD 2.25 GM in SODIUM CHLORIDE 0.9% IV 50 ML 100 ML IVPB ×4 (01:49→20:05)
[2025-11-06] MEDS: SODIUM CHLORIDE 0.9% IV 1,000 ML 100 ML IV CONT ×2 (04:38→17:22)
[2025-11-06] MEDS: ACETAMINOPHEN 325 MG TABLET 650 MG PO (04:42)
[2025-11-06 05:33] LABS: Hematocrit 29.0 % (37.0-47.0); Hemoglobin 9.3 g/dL (12.0-15.0); Mean Corpuscular HGB Conc 32.1 g/dl (32-36); Mean Corpuscular Hemoglobin 28.4 pg (26-34); Mean Corpuscular Volume 88.4 fl (80-100); Platelet Count Result 186 k/mm3 (150-375); Red Blood Count 3.28 M/mm3 (4.2-5.4); White Blood Count 13.9 K/mm3 (4.5-10.0)
[2025-11-06 05:55] LABS: Anion Gap 7 mmol/L (4-12); Blood Urea Nitrogen 15 mg/dL (7-17); Calcium 8.2 mg/dL (8.4-10.2); Carbon Dioxide 20 mmol/L (22-30); Chloride 108 mmol/L (98-107); Estimated Glomerular Filt Rate > 60; Glucose 100 mg/dL (65-110); Potassium 3.0 mmol/L (3.4-5.0); Sodium 135 mmol/L (137-145)
[2025-11-06] MEDS: POTASSIUM CHLORIDE 20 MEQ ER TABLET 40 MEQ PO (06:41)
[2025-11-06] MEDS: PANTOPRAZOLE 40 MG TABLET PO ×2 (08:49→20:05)
[2025-11-06] MEDS: MORPHINE SULFATE (*CRX) 4 MG/ML INJ 2 MG IV PUSH ×3 (08:50→21:15)
[2025-11-06] MEDS: ATORVASTATIN 20 MG TABLET PO (09:02)
--- NOTE | 2025-11-06 09:20 | P.CONGI_ITS ---
Assessment and Plan Assessment and plan (1) Colitis: Code(s): K52.9 - Noninfective gastroenteritis and colitis, unspecified Status: Acute Assessment and Plan: probably infectious but can not rule out ischemic after turned in bloody diarrhea pending stool cultures- apple cider has been linked with E coli and cryptosporidium outbreaks continue with medical treatment for now repeat labs- lactic acid, cbc, esr may need colonoscopy after full recovery of colitis (2) Sepsis: Qualifiers: Sepsis type: sepsis due to unspecified organism Sepsis acute organ dysfunction status: with acute organ dysfunction Severe sepsis acute organ dysfunction type: acute renal failure Acute renal failure type: unspecified S evere sepsis shock status: without septic shock Qualified Code(s): A41.9 - Sepsis, unspecified organism; R65.20 - Severe sepsis without septic shock; N17.9 - Acute kidney failure, unspecified Code(s): A41.9 - Sepsis, unspecified organism Status: Acute Assessment and Plan: empirically on abx pending stool result (3) PATITO (acute kidney injury): Code(s): N17.9 - Acute kidney failure, unspecified Status: Acute (4) Bloody diarrhea: Code(s): R19.7 - Diarrhea, unspecified Status: Acute (5) Vasovagal syncope: Code(s): R55 - Syncope and collapse Status: Acute (6) Abdominal pain: Code(s): R10.9 - Unspecified abdominal pain Status: Acute GI Consult Note Consult date/time: 11/06/25 09:20 Reason for consult: colitis HPI: Corin Lagunas is a 75 year old female with history of essential hypertension, GERD, restless leg syndrome and type 2 diabetes mellitus came to ER via EMS after having a syncopal. She started with several loose stools up to 13 then turned bloody, also cramping abdominal pain, while she was straining unable to have a bowel movement then stood up and that the next thing she knew she woke up on the floor, she was extremely diaphoretic[place] [address], elevated BUN and creatinine at 23 and 1.4. C diff PCR influenza RSV and COVID PCR were all negative. CT of the brain demonstrated no acute intracranial process. CT scan showed colitis. She had apple cider Xmas yovany and she was only person at home who drank. Never had colitis, last colonoscopy years ago. She is still uncomfortable Review of Systems 2 Constitutional: Constitutional: Reports chills Eyes: Eyes: Denies blurry vision ENT: Reports Normal hearing present Cardiovascular: Cardiovascular: Denies chest pain Respiratory: Respiratory: Denies cough Gastrointestinal: Gastrointestinal: Reports abdominal pain and Reports diarrhea Genitourinary: Genitourinary: Denies dysuria Musculoskeletal: Musculoskeletal: Denies back pain Integumentary/Breasts: Skin/Breast: Denies rash Neurologic: Denies confusion Psychiatric: Psychiatric: Denies behavioral changes [facility] Past Medical History Medical History (Updated 11/06/25 @ 09:25 by Theo Rm MD) Abdominal pain Bloody diarrhea Diabetes mellitus Hyperlipidemia Hypertension Surgical History Surgical History (Updated 11/05/25 @ 08:42 by Uyen Thapa DO) Status post cataract extraction of both eyes with insertion of intraocular lens History of tonsillectomy and adenoidectomy History of appendectomy Hx of cholecystectomy History of total abdominal hysterectomy and bilateral salpingo-oophorectomy Endometriosis Social History Social History (Updated 11/05/25 @ 08:41 by Uyen Thapa DO) Social History: The patient lives with her they have been together for years but 33 years. She has 1 son. She is a lifelong nonsmoker and does not drink alcohol or use illicit substances. She is independent in activities of daily living. 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 Respiratory is code status: Full code Surrogate decision maker: Smoking status: Never smoker Lack of Transportation: No Lack of Food: Never True Current Housing: I Have Housing Concerned About Future Housing: No Difficulty Paying Gas/Electric Bills: No Difficulty Paying for Meds: No Currently Unemployed: No Education: High School Diploma/GED Difficulty w/ Childcare or Family Care: No Spiritual care concerns: No Meds Home Medications and Allergies Home Medications ?Medication ?Instructions ?Recorded ?Confirmed ?Type atorvastatin 20 mg tablet 20 mg PO DAILY 11/05/2510/13 History hydrochlorothiazide 50 mg tablet 50 mg PO DAILY 11/05/25 History linaclotide 290 mcg capsule 290 mcg PO 0630 11/05/25 1 01/06/25 History (Linzess) lisinopril 40 mg tablet 40 mg PO DAILY 11/05/2510/13/25 History omeprazole 40 mg capsule,delayed 40 mg PO .Q12HR 11/0511/05/25 History release ropinirole 1 mg tablet 2 mg PO .COMPLEX 11/05/25 History tirzepatide 5 mg/0.5 mL 5 mg subcut WEEKLY 11/05/25 11/05/25 History subcutaneous pen injector (Leighann) Allergies Allergy/AdvReac Type Severity Reaction Status Date / Time No Known Allergies Allergy Verified 11/05/25 15:23 Vital Signs Vital Signs - 24 hr 11/05/25 10:00 11/05/25 10:05 11/05/25 10:05 Temperature Pulse Rate Respiratory Rate Blood Pressure 161/50 H 171/56 H 161/50 H Pulse Oximetry Oxygen Delivery 11/05/25 10:05 11/05/25 10:05 11/05/25 10:10 Temperature Pulse Rate Respiratory Rate Blood Pressure 171/56 H 179/60 H 179/60 H Pulse Oximetry Oxygen Delivery 11/05/25 12:00 11/05/25 14:00 11/05/25 16:00 Temperature 98.5 F 97.7 F Pulse Rate 56 L 63 Respiratory Rate 16 21 H Blood Pressure 149/45 H 145/55 H Pulse Oximetry 100 100 Oxygen Delivery Room Air 11/05/25 20:00 11/06/25 00:00 11/06/25 00:00 Temperature 97.2 F L Pulse Rate 54 L 63 65 Respiratory Rate 18 Blood Pressure 131/48 L Pulse Oximetry 99 Oxygen Delivery 11/06/25 04:00 Temperature Pulse Rate 55 L Respiratory Rate Blood Pressure Pulse Oximetry Oxygen Delivery Exam 2 Const: Other: uncomfortable because of pain HENMT: Face/Nose/Sinus: Normal nares present Eyes: Sclera: sclerae normal Neck: Neck: supple Resp: Auscultation: clear to auscultation bilaterally Cardio: Rate: regular rate Rhythm: regular rhythm GI: GI Palp: Yes Soft to palpation, No Firmness to palpation present (GI), Yes Tenderness to palpation present (GI) and Yes Guarding due to palpation present (GI) Skin: General skin exam: normal color Neuro: Speech: normal speech Motor exam (neuro): 5/5 motor strength present throughout Extrem: General: normal to inspection Psych: Mental Status: mental status grossly normal Results Labs 11/06/25 05:08 11/06/25 05:08 Labs: Short CBC 11/05/25 11/06/25 11/06/25 Range/Units 16:19 00:46 05:08 WBC 13.9 H (4.5-10.0) K/mm3 Hgb 10.5 L D 9.6 L 9.3 L (12.0-15.0) g/dL Hct 31.8 L 28.8 L 29.0 L (37.0-47.0) % Plt Count 186 (150-375) k/mm3 BMP 11/06/25 05:08 Sodium 135 L Potassium 3.0 L Chloride 108 H Carbon Dioxide 20 L BUN 15 D Creatinine 0.90 Glucose 100 Calcium 8.2 L Cardiac Enzymes 11/05/25 Range/Units 09:03 Troponin I 0.089 H* D (0.000-0.034) ng/mL
--- NOTE | 2025-11-06 12:27 | P.PNIM_ITS ---
Assessment and Plan Assessment and Plan (1) Vasovagal syncope: Code(s): R55 - Syncope and collapse Status: Acute Assessment and Plan: Patient presents to the emergency department for a syncopal episode after ab dominal pain and vomiting. Metabolic panel with evidence of dehydration. CT brain without acute findings. EKG without acute ST changes, baseline troponin is elevated. No chest pain at this time. CTA chest PE with abdomen and pelvis obtained. Shows colitis and proctitis. - continue telemetry - obtain orthostatics VS (2) Elevated troponin: Code(s): R79.89 - Other specified abnormal findings of blood chemistry Status: Acute (3) Colitis: Code(s): K52.9 - Noninfective gastroenteritis and colitis, unspecified Status: Acute Assessment and Plan: zosyn started-will continue stool cultures obtained GI was consulted, no plans for scope while inpatient clear liquid diet pain control with PRN morphine (4) Sepsis: Qualifiers: Sepsis type: sepsis due to unspecified organism Sepsis acute organ dysfunction status: with acute organ dysfunction Severe sepsis acute organ dysfunction type: acute renal failure Acute renal failure type: unspecified Severe sepsis shock status: without septic shock Qualified Code(s): A41.9 - Sepsis, unspecified organism; R65.20 - Severe sepsis without septic shock; N17.9 - Acute kidney failure, unspecified Code(s): A41.9 - Sepsis, unspecified organism Status: Acute Assessment and Plan: RR24, bp 97/61, CBC- leukocytosis-27.1 pt was given IV fluids in ED- BP improved BC, UA/c/s, and stool cultures collected in ED c diff negative CTA chest PE with abdomen and pelvis obtained. Shows colitis and proctitis. Patient started on IV antibiotics piperacilli/tazobactram 3.375 q6h, started / daily labs (5) Gastroenteritis: Code(s): K52.9 - Noninfective gastroenteritis and colitis, unspecified Status: Acute Assessment and Plan: CTA chest PE with abdomen and pelvis obtained. Shows colitis and proctitis. Patient started on IV antibiotics. IV fluids cdiff negative, stool cultures collected -piperacilli/tazobactram 3.375 q6h, started 11/05 GI following, no plans for scope during this admission pain control AM labs (6) PATITO (acute kidney injury): Code(s): N17.9 - Acute kidney failure, unspecified Status: Acute Assessment and Plan: IV hydration monitor daily labs (7) UTI (urinary tract infection): Code(s): N39.0 - Urinary tract infection, site not specified Status: Acute Assessment and Plan: Urine a possible evidence of infection. follow urine c/s started on IV antibitocs, continue AM labs Medical Record Review I have reviewed the following patient records and this information was taken into consideration when formulating the assessment and plan.: previous labs, previous ER visits and previous hospitalizations Consultations Consultations: I have discussed the care of this pt with the consulting providers. Subjective Date/time seen: 11/06/25 12:27 Interval history: Patient seen for a follow up visit. Patient lying in bed, in no acute distress. Patient reports having multiple episodes of diarrhea after eating some jello in the morning. Patient has had episodes of severe abdominal cramping requiring PRN morphine. Patient continues on IV fluids for hydration and encouraged to have clear liquids for pleasure rather than large amounts. Patient continues on IV antibiotics. GI following. No plans for scope during this admission. Review of Systems Review of Systems: All systems reviewed & are unremarkable except as noted in HPI and below Exam Const: General: comfortable Other: very pleasant lady, calm and in no distress Resp: Effort & Inspection: normal respiratory effort Auscultation: clear to auscultation bilaterally Cardio: Rate: regular rate Rhythm: regular rhythm GI: Auscultation: normal bowel sounds Skin: General skin exam: normal color Neuro: Speech: normal speech Extrem: General: normal to inspection Psych: Affect: normal affect Objective Data Vital Signs Vital Signs: Vital Signs - 24 hr 11/05/25 14:00 11/05/25 16:00 11/05/25 20:00 Temperature 97.7 F Pulse Rate 63 54 L Respiratory Rate 21 H Blood Pressure 145/55 H Pulse Oximetry 100 Oxygen Delivery Room Air 11/06/25 00:00 11/06/25 00:00 11/06/25 04:00 Temperature 97.2 F L Pulse Rate 63 65 55 L Respiratory Rate 18 Blood Pressure 131/48 L Pulse Oximetry 99 Oxygen Delivery 11/06/25 08:00 11/06/25 08:00 Temperature Pulse Rate 57 L Respiratory Rate Blood Pressure Pulse Oximetry Oxygen Delivery Room Air Intake/Output Intake/Output: Intake & Output 1211/04/25 11/05/25 11/06/25 23:59 23:59 23:59 23:59 Intake Total 4000 2049 Output Total 801 Balance 3199 2049 Meds/Results Medications: Active Medications Generic Name Dose Route Start Last Admin Trade Name Freq PRN Reason Stop Dose Admin Acetaminophen 650 mg 11/05/25 11:31 11/06/25 04:42 Acetaminophen 325 Mg Tablet PO 650 mg Q6H PRN Administration Mild Pain (1-3) or Fever Atorvastatin Calcium 20 mg 11/06/25 09:00 11/06/25 09:02 Atorvastatin 20 Mg Tablet PO 20 mg DAILY ZITA Administration Dextrose 12.5 gm 11/05/25 02:02 Dextrose 50% 25 Gm/50 Ml Syringe IV PUSH PRN PRN Hypoglycemia Protocol Dicyclomine HCl 20 mg 11/05/25 09:28 11/06/25 01:44 Dicyclomine Hcl 10 Mg Capsule PO 20 mg QID PRN Administration Abdominal Cramping Glucagon 1 mg 11/05/25 02:02 Glucagon For Inj 1 Mg Vial IM PRN PRN Hypoglycemia Protocol Glucose 15 gm 11/05/25 02:02 Glucose Oral Gel 15 Gm Of Glucse In 37.5 Gm Tube PO PRN PRN Hypoglycemia Protocol Sodium Chloride 1,000 mls @ 100 mls/hr 11/05/25 02:05 11/06/25 04:38 Normal Saline Iv IV CONT 100 mls/hr .Q10H ZITA Administration Dextrose 1,000 mls @ 100 mls/hr 11/05/25 02:02 Dextrose 5% 1,000 Ml IVPB PRN PRN Hypoglycemia Protocol Piperacillin Sod/Tazobactam 50 mls @ 100 mls/hr 11/05/25 08:00 11/06/25 08:52 Sod 2.25 gm/ Sodium Chloride IVPB 100 mls/hr Q6H ZITA Administration Lisinopril 40 mg 11/06/25 09:00 11/06/25 09:02 Lisinopril 20 Mg Tablet PO 40 mg DAILY ZITA Administration Morphine Sulfate 2 mg 11/05/25 15:50 11/06/25 08:50 Morphine Sulfate (*Crx) 4 Mg/Ml Inj IV PUSH 2 mg Q6HR PRN Administration Pain Rated 7-10 Ondansetron HCl 4 mg 11/05/25 02:02 11/05/25 08:57 Ondansetron Inj 4 Mg/2 Ml Vial IV PUSH 4 mg Q4H PRN Administration Nausea Pantoprazole Sodium 40 mg 11/05/25 21:00 11/06/25 08:49 Pantoprazole 40 Mg Tablet PO 40 mg Q12HR ZITA Administration Ropinirole HCl 2 mg 11/05/25 18:25 11/06/25 01:46 Ropinirole Hcl 1 Mg Tablet PO 2 mg Q8HR ZITA Administration Radiology Results: ITS Impressions Head CT 11/04/25 20:45 IMPRESSION: 1. No acute intracranial abnormality. Chest X-Ray 11/04/25 21:12 IMPRESSION: 1: NO ACUTE CARDIOPULMONARY DISEASE. Chest/Abdomen/Pelvis CTA 11/05/25 07:21 IMPRESSION: 1. No pulmonary embolus. 2. Wall thickening of the left colon, consistent with colitis. Labs Labs: Laboratory Results - last 24 hr 11/05/25 11/05/25 11/05/25 11:33 16:19 16:43 WBC RBC Hgb 10.5 L D Hct 31.8 L MCV MCH MCHC RDW Plt Count MPV Sodium Potassium Chloride Carbon Dioxide Anion Gap BUN Creatinine Estim Creat Clear Calc Estimated GFR Glucose POC Capillary Glucose 114 H 98 Lactic Acid Calcium 11/05/25 11/06/25 11/06/25 19:43 00:46 05:08 WBC 13.9 H RBC 3.28 L Hgb 9.6 L 9.3 L Hct 28.8 L 29.0 L MCV 88.4 MCH 28.4 MCHC 32.1 RDW 15.3 H Plt Count 186 MPV 10.3 Sodium 135 L Potassium 3.0 L Chloride 108 H Carbon Dioxide 20 L Anion Gap 7 BUN 15 D Creatinine 0.90 Estim Creat Clear Calc Not Reportable Estimated GFR > 60 Glucose 100 POC Capillary Glucose 90 Lactic Acid 0.8 Calcium 8.2 L 11/06/25 11/06/25 07:17 11:21 WBC RBC Hgb Hct MCV MCH MCHC RDW Plt Count MPV Sodium Potassium Chloride Carbon Dioxide Anion Gap BUN Creatinine Estim Creat Clear Calc Estimated GFR Glucose POC Capillary Glucose 110 H 108 H Lactic Acid Calcium Quality VTE Prophylaxis VTE prophylaxis: mechanical ordered
[2025-11-06 16:42] LABS: Hematocrit 28.3 % (37.0-47.0); Hemoglobin 9.1 g/dL (12.0-15.0)
[2025-11-06] MEDS: HYDROcodone/acetaminophen (*CRX) 5-325 MG TABLET 1 TAB PO (21:52)
[2025-11-07] VITALS (10 sets, daily range): BP systolic 131–146; BP diastolic 56–68; PULSE 48–71; RESP 12–20; TEMP 36.3–36.8; O2SAT 96–100
[2025-11-07] MEDS: PIPERACILLIN/TAZOBACTAM SOD 2.25 GM in SODIUM CHLORIDE 0.9% IV 50 ML 100 ML IVPB ×4 (01:46→20:00)
[2025-11-07] MEDS: SODIUM CHLORIDE 0.9% IV 1,000 ML 100 ML IV CONT ×2 (03:32→14:06)
[2025-11-07 06:51] LABS: Hematocrit 27.5 % (37.0-47.0); Hemoglobin 8.6 g/dL (12.0-15.0); Mean Corpuscular HGB Conc 31.3 g/dl (32-36); Mean Corpuscular Hemoglobin 28.0 pg (26-34); Mean Corpuscular Volume 89.6 fl (80-100); Platelet Count Result 147 k/mm3 (150-375); Red Blood Count 3.07 M/mm3 (4.2-5.4); White Blood Count 10.8 K/mm3 (4.5-10.0)
[2025-11-07 07:13] LABS: Anion Gap 2 mmol/L (4-12); Blood Urea Nitrogen 9 mg/dL (7-17); Calcium 8.0 mg/dL (8.4-10.2); Carbon Dioxide 23 mmol/L (22-30); Chloride 111 mmol/L (98-107); Estimated Glomerular Filt Rate > 60; Glucose 89 mg/dL (65-110); Potassium 3.5 mmol/L (3.4-5.0); Sodium 136 mmol/L (137-145)
[2025-11-07] MEDS: ATORVASTATIN 20 MG TABLET PO (08:23)
[2025-11-07] MEDS: PANTOPRAZOLE 40 MG TABLET PO ×2 (08:23→20:00)
--- NOTE | 2025-11-07 12:02 | P.PNIM_ITS ---
Assessment and Plan Assessment and Plan (1) Vasovagal syncope: Code(s): R55 - Syncope and collapse Status: Acute Assessment and Plan: Patient presents to the emergency department for a syncopal episode after ab dominal pain and vomiting. Metabolic panel with evidence of dehydration. CT brain without acute findings. EKG without acute ST changes, baseline troponin is elevated. No chest pain at this time. CTA chest PE with abdomen and pelvis obtained. Shows colitis and proctitis. - continue telemetry - obtain orthostatics VS (2) Elevated troponin: Code(s): R79.89 - Other specified abnormal findings of blood chemistry Status: Acute (3) Colitis: Code(s): K52.9 - Noninfective gastroenteritis and colitis, unspecified Status: Acute Assessment and Plan: zosyn started-will continue stool cultures obtained - still pending GI was consulted, no plans for scope while inpatient advanced to low fiber diet per GI pain control with PRN morphine patient tolerating small amounts of food and fluids today possible dc home tomorrow if continuing to improve and tolerating PO intake (4) Sepsis: Qualifiers: Acute renal failure type: unspecified Sepsis acute organ dysfunction status: with acute organ dysfunction Sepsis type: sepsis due to unspecified organism Severe sepsis acute organ dysfunction type: acute renal failure Severe sepsis shock status: without septic shock Qualified Code(s): A41.9 - Sepsis, unspecified organism; R65.20 - Severe sepsis without septic shock; N17.9 - Acute kidney failure, unspecified Code(s): A41.9 - Sepsis, unspecified organism Status: Acute Assessment and Plan: RR24, bp 97/61, CBC- leukocytosis-27.1 pt was given IV fluids in ED- BP improved BC, UA/c/s, and stool cultures collected in ED c diff negative CTA chest PE with abdomen and pelvis obtained. Shows colitis and proctitis. Patient started on IV antibiotics piperacilli/tazobactram 3.375 q6h, started 11/05 daily labs (5) Gastroenteritis: Code(s): K52.9 - Noninfective gastroenteritis and colitis, unspecified Status: Acute Assessment and Plan: CTA chest PE with abdomen and pelvis obtained. Shows colitis and proctitis. Patient started on IV antibiotics. IV fluids cdiff negative, stool cultures collected and pending -piperacilli/tazobactram 3.375 q6h, started 11/05 GI following, no plans for scope during this admission pain control AM labs (6) PATITO (acute kidney injury): Code(s): N17.9 - Acute kidney failure, unspecified Status: Acute Assessment and Plan: IV hydration monitor daily labs (7) UTI (urinary tract infection): Code(s): N39.0 - Urinary tract infection, site not specified Status: Acute Assessment and Plan: Urine a possible evidence of infection. follow urine c/s - 25-50k Viridans streptococcus group no need to treat, colonization ruled out Medical Record Review I have reviewed the following patient records and this information was taken into consideration when formulating the assessment and plan.: previous labs, previous ER visits and previous hospitalizations Consultations Consultations: I have discussed the care of this pt with the consulting providers. Subjective Date/time seen: 11/07/25 12:02 Interval history: Patient seen for a follow up visit. Patient lying in bed, in no acute distress. Patient reports she had a lot of abdominal pain yesterday and only took sips of fluids until this morning. Patient has now been able to tolerate some small amounts of soft food and fluids without additional diarrhea or abdominal pain. GI following. Patient continues on IV fluids and IV antibiotics. Possible DC home tomorrow if still toelrating PO intake and pain is controlled. Review of Systems Review of Systems: All systems reviewed & are unremarkable except as noted in HPI and below Exam Const: General: comfortable Other: very pleasant lady, calm and in no distress Resp: Effort & Inspection: normal respiratory effort Auscultation: clear to auscultation bilaterally Cardio: Rate: regular rate Rhythm: regular rhythm GI: Auscultation: normal bowel sounds Skin: General skin exam: normal color Neuro: Speech: normal speech Extrem: General: normal to inspection Psych: Affect: normal affect Objective Data Vital Signs Vital Signs: Vital Signs - 24 hr 11/06/25 14:00 11/06/25 16:00 11/06/25 20:05 Temperature 98.5 F Pulse Rate 59 L 75 64 Respiratory Rate 21 H Blood Pressure 134/49 L Pulse Oximetry 98 Oxygen Delivery 11/06/25 20:18 11/06/25 21:20 11/07/25 00:03 Temperature 99.3 F Pulse Rate 68 56 L Respiratory Rate 20 Blood Pressure 134/65 Pulse Oximetry 98 100 Oxygen Delivery Room Air 11/07/25 04:05 11/07/25 05:27 11/07/25 08:00 Temperature 97.7 F Pulse Rate 48 L 52 L 48 L Respiratory Rate 18 Blood Pressure 142/68 H Pulse Oximetry 100 Oxygen Delivery 11/07/25 08:15 Temperature Pulse Rate Respiratory Rate Blood Pressure Pulse Oximetry Oxygen Delivery Room Air Intake/Output Intake/Output: Intake & Output 11/04/25 11/05/25 11/06/25 11/07/25 23:59 23:59 23:59 23:59 Intake Total 4000 3500 1400 Output Total 801 Balance 3199 3500 1400 Meds/Results Medications: Active Medications Generic Name Dose Route Start Last Admin Trade Name Freq PRN Reason Stop Dose Admin Acetaminophen 650 mg 11/05/25 11:31 11/06/25 04:42 Acetaminophen 325 Mg Tablet PO 650 mg Q6H PRN Administration Mild Pain (1-3) or Fever Hydrocodone Bitart/Acetaminophen 1 tab 11/06/25 19:56 11/06/25 21:52 Hydrocodone/Acetaminophen (*Crx) 5-325 Mg Tablet PO 1 tab Q4H PRN Administration Pain Rated 4-6 Atorvastatin Calcium 20 mg 11/06/25 09:00 11/07/25 08:23 Atorvastatin 20 Mg Tablet PO 20 mg DAILY ZITA Administration Dextrose 12.5 gm 11/05/25 02:02 Dextrose 50% 25 Gm/50 Ml Syringe IV PUSH PRN PRN Hypoglycemia Protocol Dicyclomine HCl 20 mg 11/05/25 09:28 11/06/25 20:04 Dicyclomine Hcl 10 Mg Capsule PO 20 mg QID PRN Administration Abdominal Cramping Glucagon 1 mg 11/05/25 02:02 Glucagon For Inj 1 Mg Vial IM PRN PRN Hypoglycemia Protocol Glucose 15 gm 11/05/25 02:02 Glucose Oral Gel 15 Gm Of Glucse In 37.5 Gm Tube PO PRN PRN Hypoglycemia Protocol Sodium Chloride 1,000 mls @ 100 mls/hr 11/05/25 02:05 11/07/25 03:32 Normal Saline Iv IV CONT 100 mls/hr .Q10H ZITA Administration Dextrose 1,000 mls @ 100 mls/hr 11/05/25 02:02 Dextrose 5% 1,000 Ml IVPB PRN PRN Hypoglycemia Protocol Piperacillin Sod/Tazobactam 50 mls @ 100 mls/hr 11/05/25 08:00 11/07/25 09:13 Sod 2.25 gm/ Sodium Chloride IVPB 100 mls/hr Q6H ZITA Administration Lisinopril 40 mg 11/06/25 09:00 11/07/25 08:23 Lisinopril 20 Mg Tablet PO 40 mg DAILY ZITA Administration Morphine Sulfate 2 mg 11/05/25 15:50 11/06/25 21:15 Morphine Sulfate (*Crx) 4 Mg/Ml Inj IV PUSH 2 mg Q6HR PRN Administration Pain Rated 7-10 Ondansetron HCl 4 mg 11/05/25 02:02 11/05/25 08:57 Ondansetron Inj 4 Mg/2 Ml Vial IV PUSH 4 mg Q4H PRN Administration Nausea Pantoprazole Sodium 40 mg 11/05/25 21:00 11/07/25 08:23 Pantoprazole 40 Mg Tablet PO 40 mg Q12HR ZITA Administration Ropinirole HCl 2 mg 11/05/25 18:25 11/07/25 05:03 Ropinirole Hcl 1 Mg Tablet PO 2 mg Q8HR ZITA Administration Radiology Results: ITS Impressions Head CT 11/04/25 20:45 IMPRESSION: 1. No acute intracranial abnormality. Chest X-Ray 11/04/25 21:12 IMPRESSION: 1: NO ACUTE CARDIOPULMONARY DISEASE. Chest/Abdomen/Pelvis CTA 11/05/25 07:21 IMPRESSION: 1. No pulmonary embolus. 2. Wall thickening of the left colon, consistent with colitis. Labs Labs: Laboratory Results - last 24 hr 11/06/25 11/06/25 11/06/25 16:18 16:41 19:58 WBC RBC Hgb 9.1 L Hct 28.3 L MCV MCH MCHC RDW Plt Count MPV ESR Sodium Potassium Chloride Carbon Dioxide Anion Gap BUN Creatinine Estim Creat Clear Calc Estimated GFR Glucose POC Capillary Glucose 115 H 128 H Lactic Acid Calcium 11/07/25 11/07/25 11/07/25 06:40 07:18 11:34 WBC 10.8 H RBC 3.07 L Hgb 8.6 L Hct 27.5 L MCV 89.6 MCH 28.0 MCHC 31.3 L RDW 15.4 H Plt Count 147 L MPV 9.5 ESR 34 H Sodium 136 L Potassium 3.5 Chloride 111 H Carbon Dioxide 23 Anion Gap 2 L BUN 9 D Creatinine 0.84 Estim Creat Clear Calc Not Reportable Estimated GFR > 60 Glucose 89 POC Capillary Glucose 91 87 Lactic Acid 0.6 L Calcium 8.0 L Quality VTE Prophylaxis VTE prophylaxis: mechanical ordered
--- NOTE | 2025-11-07 12:15 | WPDGIPROGNO ---
Progress Note: A&P Assessment and Plan (1) Abdominal pain: Code(s): R10.9 - Unspecified abdominal pain Status: Acute (2) Bloody diarrhea: Code(s): R19.7 - Diarrhea, unspecified Status: Acute Assessment and Plan: 75-year-old female who came to the hospital because of abdominal pain, bloody diarrhea. Stool culture still pending. Patient clinically is improving. Her hemoglobin level is stable. Plan 1. Check stool cultures. 2. Increase dietary fiber diet. 3. If the stool cultures are negative, patient might be able to go home with the colonoscopy as outpatient in 1-2 weeks. Time Spent With Patient Time with patient: 15 - 25 minutes Subjective Date/time seen: 11/07/25 12:15 Interval history: Bloody diarrhea, improved. Review of Systems Review of Systems: Eleven review of symptoms negative except those mentioned in the H&P. Exam Const: General: comfortable Other: very pleasant lady, calm and in no distress HENMT: Face/Nose/Sinus: Normal nares present Eyes: General: appearance normal, both eyes and all related structures Sclera: sclerae normal Neck: Neck: supple Resp: Effort & Inspection: normal respiratory effort Auscultation: clear to auscultation bilaterally Cardio: Rate: regular rate Rhythm: regular rhythm GI: GI Palp: Yes Soft to palpation Auscultation: normal bowel sounds Skin: General skin exam: normal color Neuro: General: gait normal Speech: normal speech Extrem: General: normal to inspection Psych: Affect: normal affect Objective Data Vital Signs Vital Signs: Vital Signs - 24 hr 11/06/25 14:00 11/06/25 16:00 11/06/25 20:05 Temperature 98.5 F Pulse Rate 59 L 75 64 Respiratory Rate 21 H Blood Pressure 134/49 L Pulse Oximetry 98 Oxygen Delivery 11/06/25 20:18 11/06/25 21:20 11/07/25 00:03 Temperature 99.3 F Pulse Rate 68 56 L Respiratory Rate 20 Blood Pressure 134/65 Pulse Oximetry 98 100 Oxygen Delivery Room Air 11/07/25 04:05 11/07/25 05:27 11/07/25 08:00 Temperature 97.7 F Pulse Rate 48 L 52 L 48 L Respiratory Rate 18 Blood Pressure 142/68 H Pulse Oximetry 100 Oxygen Delivery 11/07/25 08:15 Temperature Pulse Rate Respiratory Rate Blood Pressure Pulse Oximetry Oxygen Delivery Room Air Intake/Output Intake/Output: Intake & Output 11/04/25 11/05/25 11/06/25 11/07/25 23:59 23:59 23:59 23:59 Intake Total 4000 3500 1400 Output Total 801 Balance 3199 3500 1400 Meds/Results Medications: Active Medications Generic Name Dose Route Start Last Admin Trade Name Freq PRN Reason Stop Dose Admin Acetaminophen 650 mg 11/05/25 11:31 11/06/25 04:42 Acetaminophen 325 Mg Tablet PO 650 mg Q6H PRN Administration Mild Pain (1-3) or Fever Hydrocodone Bitart/Acetaminophen 1 tab 11/06/25 19:56 11/06/25 21:52 Hydrocodone/Acetaminophen (*Crx) 5-325 Mg Tablet PO 1 tab Q4H PRN Administration Pain Rated 4-6 Atorvastatin Calcium 20 mg 11/06/25 09:00 11/07/25 08:23 Atorvastatin 20 Mg Tablet PO 20 mg DAILY ZITA Administration Dextrose 12.5 gm 11/05/25 02:02 Dextrose 50% 25 Gm/50 Ml Syringe IV PUSH PRN PRN Hypoglycemia Protocol Dicyclomine HCl 20 mg 11/05/25 09:28 11/06/25 20:04 Dicyclomine Hcl 10 Mg Capsule PO 20 mg QID PRN Administration Abdominal Cramping Glucagon 1 mg 11/05/25 02:02 Glucagon For Inj 1 Mg Vial IM PRN PRN Hypoglycemia Protocol Glucose 15 gm 11/05/25 02:02 Glucose Oral Gel 15 Gm Of Glucse In 37.5 Gm Tube PO PRN PRN Hypoglycemia Protocol Sodium Chloride 1,000 mls @ 100 mls/hr 11/05/25 02:05 11/07/25 03:32 Normal Saline Iv IV CONT 100 mls/hr .Q10H ZITA Administration Dextrose 1,000 mls @ 100 mls/hr 11/05/25 02:02 Dextrose 5% 1,000 Ml IVPB PRN PRN Hypoglycemia Protocol Piperacillin Sod/Tazobactam 50 mls @ 100 mls/hr 11/05/25 08:00 11/07/25 09:13 Sod 2.25 gm/ Sodium Chloride IVPB 100 mls/hr Q6H ZITA Administration Lisinopril 40 mg 11/06/25 09:00 11/07/25 08:23 Lisinopril 20 Mg Tablet PO 40 mg DAILY ZITA Administration Morphine Sulfate 2 mg 11/05/25 15:50 11/06/25 21:15 Morphine Sulfate (*Crx) 4 Mg/Ml Inj IV PUSH 2 mg Q6HR PRN Administration Pain Rated 7-10 Ondansetron HCl 4 mg 11/05/25 02:02 11/05/25 08:57 Ondansetron Inj 4 Mg/2 Ml Vial IV PUSH 4 mg Q4H PRN Administration Nausea Pantoprazole Sodium 40 mg 11/05/25 21:00 11/07/25 08:23 Pantoprazole 40 Mg Tablet PO 40 mg Q12HR ZITA Administration Ropinirole HCl 2 mg 11/05/25 18:25 11/07/25 05:03 Ropinirole Hcl 1 Mg Tablet PO 2 mg Q8HR ZITA Administration Radiology Results: ITS Impressions Head CT 11/04/25 20:45 IMPRESSION: 1. No acute intracranial abnormality. Chest X-Ray 11/04/25 21:12 IMPRESSION: 1: NO ACUTE CARDIOPULMONARY DISEASE. Chest/Abdomen/Pelvis CTA 11/05/25 07:21 IMPRESSION: 1. No pulmonary embolus. 2. Wall thickening of the left colon, consistent with colitis. Labs Labs: Laboratory Results - last 24 hr 11/06/25 11/06/25 11/06/25 16:18 16:41 19:58 WBC RBC Hgb 9.1 L Hct 28.3 L MCV MCH MCHC RDW Plt Count MPV ESR Sodium Potassium Chloride Carbon Dioxide Anion Gap BUN Creatinine Estim Creat Clear Calc Estimated GFR Glucose POC Capillary Glucose 115 H 128 H Lactic Acid Calcium 11/07/25 11/07/25 11/07/25 06:40 07:18 11:34 WBC 10.8 H RBC 3.07 L Hgb 8.6 L Hct 27.5 L MCV 89.6 MCH 28.0 MCHC 31.3 L RDW 15.4 H Plt Count 147 L MPV 9.5 ESR 34 H Sodium 136 L Potassium 3.5 Chloride 111 H Carbon Dioxide 23 Anion Gap 2 L BUN 9 D Creatinine 0.84 Estim Creat Clear Calc Not Reportable Estimated GFR > 60 Glucose 89 POC Capillary Glucose 91 87 Lactic Acid 0.6 L Calcium 8.0 L
[2025-11-07] MEDS: HYDROcodone/acetaminophen (*CRX) 5-325 MG TABLET 1 TAB PO (19:57)
[2025-11-07] MEDS: DICYCLOMINE HCL 10 MG CAPSULE 20 MG PO (19:57)
[2025-11-07] MEDS: MORPHINE SULFATE (*CRX) 4 MG/ML INJ 2 MG IV PUSH (22:18)
[2025-11-07] MEDS: MAG HYDROX/AL HYDROX/SIMETH 30 ML UDC PO (22:57)
[2025-11-08] VITALS (8 sets, daily range): BP systolic 155–179; BP diastolic 63–68; PULSE 53–78; RESP 14–16; TEMP 36.4–37.2; O2SAT 92–96
[2025-11-08] MEDS: SODIUM CHLORIDE 0.9% IV 1,000 ML 100 ML IV CONT (00:57)
[2025-11-08] MEDS: PIPERACILLIN/TAZOBACTAM SOD 2.25 GM in SODIUM CHLORIDE 0.9% IV 50 ML 100 ML IVPB ×3 (01:00→19:56)
[2025-11-08 07:00] LABS: Hematocrit 29.5 % (37.0-47.0); Hemoglobin 9.3 g/dL (12.0-15.0); Mean Corpuscular HGB Conc 31.5 g/dl (32-36); Mean Corpuscular Hemoglobin 28.4 pg (26-34); Mean Corpuscular Volume 89.9 fl (80-100); Platelet Count Result 171 k/mm3 (150-375); Red Blood Count 3.28 M/mm3 (4.2-5.4); White Blood Count 9.2 K/mm3 (4.5-10.0)
[2025-11-08 07:19] LABS: Anion Gap 3 mmol/L (4-12); Blood Urea Nitrogen 7 mg/dL (7-17); Calcium 8.3 mg/dL (8.4-10.2); Carbon Dioxide 24 mmol/L (22-30); Chloride 111 mmol/L (98-107); Estimated Glomerular Filt Rate > 60; Glucose 92 mg/dL (65-110); Potassium 3.7 mmol/L (3.4-5.0); Sodium 138 mmol/L (137-145)
[2025-11-08] MEDS: ATORVASTATIN 20 MG TABLET PO (10:07)
[2025-11-08] MEDS: PANTOPRAZOLE 40 MG TABLET PO ×2 (10:07→19:57)
[2025-11-08] MEDS: DICYCLOMINE HCL 10 MG CAPSULE 20 MG PO ×2 (10:12→20:15)
--- NOTE | 2025-11-08 11:05 | WPDGIPROGNO ---
Progress Note: A&P Assessment and Plan (1) Abdominal pain: Code(s): R10.9 - Unspecified abdominal pain Status: Acute (2) Bloody diarrhea: Code(s): R19.7 - Diarrhea, unspecified Status: Acute Plan 75-year-old female with abdominal pain, bloody diarrhea. CT scan showed colitis. Patient did have abdominal pain last night and early this morning. Stool culture still pending. Hemoglobin level is stable at 9.3. Plan 1. If patient continued to have the abdominal pain, CT scan of the abdomen and pelvis will be reordered. 2. Check stool Culture results. 3. Order CBC for tomorrow morning. 4. Low-fiber diet the Time Spent With Patient Time with patient: 15 - 25 minutes Subjective Date/time seen: 11/08/25 11:05 Interval history: Patient does complain of having abdominal pain last night and early this morning. Her abdominal pain has improved slightly. There is no ectropion. No hematemesis. Review of Systems Review of Systems: All 11 review of symptoms negative except the ones mentioned in the H&P. Exam Const: General: comfortable Other: very pleasant lady, calm and in no distress HENMT: Face/Nose/Sinus: Normal nares present Eyes: General: appearance normal, both eyes and all related structures Sclera: sclerae normal Neck: Neck: supple Resp: Effort & Inspection: normal respiratory effort Auscultation: clear to auscultation bilaterally Cardio: Rate: regular rate Rhythm: regular rhythm GI: GI Palp: Yes Soft to palpation Auscultation: normal bowel sounds Skin: General skin exam: normal color Neuro: General: gait normal Speech: normal speech Extrem: General: normal to inspection Psych: Affect: normal affect Objective Data Vital Signs Vital Signs: Vital Signs - 24 hr 11/07/25 12:00 11/07/25 14:00 11/07/25 16:00 Temperature 97.3 F L Pulse Rate 54 L 59 L 56 L Respiratory Rate 20 Blood Pressure 131/66 Pulse Oximetry 100 Oxygen Delivery 11/07/25 20:00 11/07/25 20:05 11/07/25 21:44 Temperature 98.3 F Pulse Rate 71 58 L Respiratory Rate 12 Blood Pressure 146/56 H Pulse Oximetry 100 96 Oxygen Delivery Room Air 11/08/25 00:02 11/08/25 04:04 11/08/25 06:00 Temperature 97.5 F L Pulse Rate 53 L 63 55 L Respiratory Rate 16 Blood Pressure 155/65 H Pulse Oximetry 92 Oxygen Delivery Intake/Output Intake/Output: Intake & Output 11/05/25 11/06/25 11/07/25 11/08/25 23:59 23:59 23:59 23:59 Intake Total 4000 3500 2950 1600 Output Total 801 Balance 3199 3500 2950 1600 Meds/Results Medications: Active Medications Generic Name Dose Route Start Last Admin Trade Name Freq PRN Reason Stop Dose Admin Acetaminophen 650 mg 11/05/25 11:31 11/06/25 04:42 Acetaminophen 325 Mg Tablet PO 650 mg Q6H PRN Administration Mild Pain (1-3) or Fever Hydrocodone Bitart/Acetaminophen 1 tab 11/06/25 19:56 11/07/25 19:57 Hydrocodone/Acetaminophen (*Crx) 5-325 Mg Tablet PO 1 tab Q4H PRN Administration Pain Rated 4-6 Al Hydrox/Mg Hydrox/Simethicone 30 ml 11/07/25 22:47 11/07/25 22:57 Mag Hydrox/Al Hydrox/Simeth 30 Ml Udc PO 30 ml Q6H PRN Administration Indigestion Atorvastatin Calcium 20 mg 11/06/25 09:00 11/08/25 10:07 Atorvastatin 20 Mg Tablet PO 20 mg DAILY ZITA Administration Dextrose 12.5 gm 11/05/25 02:02 Dextrose 50% 25 Gm/50 Ml Syringe IV PUSH PRN PRN Hypoglycemia Protocol Dicyclomine HCl 20 mg 11/05/25 09:28 11/08/25 10:12 Dicyclomine Hcl 10 Mg Capsule PO 20 mg QID PRN Administration Abdominal Cramping Glucagon 1 mg 11/05/25 02:02 Glucagon For Inj 1 Mg Vial IM PRN PRN Hypoglycemia Protocol Glucose 15 gm 11/05/25 02:02 Glucose Oral Gel 15 Gm Of Glucse In 37.5 Gm Tube PO PRN PRN Hypoglycemia Protocol Dextrose 1,000 mls @ 100 mls/hr 11/05/25 02:02 Dextrose 5% 1,000 Ml IVPB PRN PRN Hypoglycemia Protocol Piperacillin Sod/Tazobactam 50 mls @ 100 mls/hr 11/05/25 08:00 11/08/25 01:30 Sod 2.25 gm/ Sodium Chloride IVPB Infused Q6H ZITA Infusion Lisinopril 40 mg 11/06/25 09:00 11/08/25 10:07 Lisinopril 20 Mg Tablet PO 40 mg DAILY ZITA Administration Morphine Sulfate 2 mg 11/05/25 15:50 11/07/25 22:18 Morphine Sulfate (*Crx) 4 Mg/Ml Inj IV PUSH 2 mg Q6HR PRN Administration Pain Rated 7-10 Ondansetron HCl 4 mg 11/05/25 02:02 11/05/25 08:57 Ondansetron Inj 4 Mg/2 Ml Vial IV PUSH 4 mg Q4H PRN Administration Nausea Pantoprazole Sodium 40 mg 11/05/25 21:00 11/08/25 10:07 Pantoprazole 40 Mg Tablet PO 40 mg Q12HR ZITA Administration Ropinirole HCl 2 mg 11/05/25 18:25 11/08/25 05:41 Ropinirole Hcl 1 Mg Tablet PO 2 mg Q8HR ZITA Administration Radiology Results: ITS Impressions Head CT 11/04/25 20:45 IMPRESSION: 1. No acute intracranial abnormality. Chest X-Ray 11/04/25 21:12 IMPRESSION: 1: NO ACUTE CARDIOPULMONARY DISEASE. Chest/Abdomen/Pelvis CTA 11/05/25 07:21 IMPRESSION: 1. No pulmonary embolus. 2. Wall thickening of the left colon, consistent with colitis. Labs Labs: Laboratory Results - last 24 hr 11/07/25 11/07/25 11/07/25 11:34 16:48 20:23 WBC RBC Hgb Hct MCV MCH MCHC RDW Plt Count MPV Sodium Potassium Chloride Carbon Dioxide Anion Gap BUN Creatinine Estim Creat Clear Calc Estimated GFR Glucose POC Capillary Glucose 87 123 H 225 H Calcium 11/07/25 11/08/25 11/08/25 20:25 06:16 07:46 WBC 9.2 RBC 3.28 L Hgb 9.3 L Hct 29.5 L MCV 89.9 MCH 28.4 MCHC 31.5 L RDW 15.0 H Plt Count 171 MPV 10.3 Sodium 138 Potassium 3.7 Chloride 111 H Carbon Dioxide 24 Anion Gap 3 L BUN 7 Creatinine 0.81 Estim Creat Clear Calc Not Reportable Estimated GFR > 60 Glucose 92 POC Capillary Glucose 167 H 95 Calcium 8.3 L
--- NOTE | 2025-11-08 13:27 | P.PNIM_ITS ---
Assessment and Plan Assessment and Plan (1) Vasovagal syncope: Code(s): R55 - Syncope and collapse Status: Acute Assessment and Plan: Patient presents to the emergency department for a syncopal episode after ab dominal pain and vomiting. Metabolic panel with evidence of dehydration. CT brain without acute findings. EKG without acute ST changes, baseline troponin is elevated. No chest pain at this time. CTA chest PE with abdomen and pelvis obtained. Shows colitis and proctitis. - continue telemetry - obtain orthostatics VS (2) Elevated troponin: Code(s): R79.89 - Other specified abnormal findings of blood chemistry Status: Acute Assessment and Plan: see above (3) Colitis: Code(s): K52.9 - Noninfective gastroenteritis and colitis, unspecified Status: Acute Assessment and Plan: zosyn started-will continue stool cultures obtained - still pending GI was consulted, no plans for scope while inpatient advanced to low fiber diet per GI pain control with PRN morphine patient tolerating small amounts of food and fluids today patient had severe abdominal pain with radiation into the right shoulder last night requiring PO pain medication and IV pain medication, still with pain this morning if pain persists GI recommends repeat CT abdomen and pelvis possible dc home tomorrow if continuing to improve and tolerating PO intake (4) Sepsis: Qualifiers: Sepsis type: sepsis due to unspecified organism Sepsis acute organ dysfunction status: with acute organ dysfunction Severe sepsis acute organ dysfunction type: acute renal failure Acute renal failure type: unspecified Severe sepsis shock status: without septic shock Qualified Code(s): A41.9 - Sepsis, unspecified organism; R65.20 - Severe sepsis without septic shock; N17.9 - Acute kidney failure, unspecified Code(s): A41.9 - Sepsis, unspecified organism Status: Acute Assessment and Plan: RR24, bp 97/61, CBC- leukocytosis-27.1 pt was given IV fluids in ED- BP improved BC, UA/c/s, and stool cultures collected in ED c diff negative CTA chest PE with abdomen and pelvis obtained. Shows colitis and proctitis. Patient started on IV antibiotics piperacilli/tazobactram 3.375 q6h, started 11/05 daily labs (5) Gastroenteritis: Code(s): K52.9 - Noninfective gastroenteritis and colitis, unspecified Status: Acute Assessment and Plan: CTA chest PE with abdomen and pelvis obtained. Shows colitis and proctitis. Dxe mckeon started on IV antibiotics. IV fluids - dc as tolerating PO fluids cdiff negative, stool cultures collected and pending -piperacilli/tazobactram 3.375 q6h, started 11/05 GI following, no plans for scope during this admission pain control AM labs (6) PATITO (acute kidney injury): Code(s): N17.9 - Acute kidney failure, unspecified Status: Acute Assessment and Plan: IV hydration monitor daily labs resolved (7) UTI (urinary tract infection): Code(s): N39.0 - Urinary tract infection, site not specified Status: Acute Assessment and Plan: Urine a possible evidence of infection. follow urine c/s - 25-50k Viridans streptococcus group no need to treat, colonization ruled out Medical Record Review I have reviewed the following patient records and this information was taken into consideration when formulating the assessment and plan.: previous labs, previous ER visits and previous hospitalizations Consultations Consultations: I have discussed the care of this pt with the consulting providers. Subjective Date/time seen: 11/08/25 13:27 Interval history: Patient seen for a follow up visit. Patient ambulating in the hallway with family. Patient reports she had a small episode of diarrhea with minimal blood just before I came to see her. Patient reports she had severe abdominal pain that radiated into her right shoulder last night requiring oral and IV pain medication. Patient reports she still had abdominal cramping this morning requiring Bentyl. GI is following patient. Patient is tolerating low fiber diet and PO liquids. IV fluids stopped. Plan for repeat CT of abdomen and pelvis if abdominal pain persists. Continue IV antibiotics. Review of Systems Review of Systems: All systems reviewed & are unremarkable except as noted in HPI and below Exam Const: General: comfortable Other: very pleasant lady, calm and in no distress Resp: Effort & Inspection: normal respiratory effort Auscultation: clear to auscultation bilaterally Cardio: Rate: regular rate Rhythm: regular rhythm GI: Auscultation: normal bowel sounds Skin: General skin exam: normal color Neuro: Speech: normal speech Extrem: General: normal to inspection Psych: Affect: normal affect Objective Data Vital Signs Vital Signs: Vital Signs - 24 hr 11/07/25 14:00 11/07/25 16:00 11/07/25 20:00 Temperature 97.3 F L Pulse Rate 59 L 56 L Respiratory Rate 20 Blood Pressure 131/66 Pulse Oximetry 100 100 Oxygen Delivery Room Air 11/07/25 20:05 11/07/25 21:44 11/08/25 00:02 Temperature 98.3 F Pulse Rate 71 58 L 53 L Respiratory Rate 12 Blood Pressure 146/56 H Pulse Oximetry 96 Oxygen Delivery 11/08/25 04:04 11/08/25 06:00 11/08/25 08:00 Temperature 97.5 F L Pulse Rate 63 55 L Respiratory Rate 16 Blood Pressure 155/65 H Pulse Oximetry 92 Oxygen Delivery Room Air 11/08/25 08:00 Temperature Pulse Rate 61 Respiratory Rate Blood Pressure Pulse Oximetry Oxygen Delivery Intake/Output Intake/Output: Intake & Output 11/05/25 11/06/25 11/07/25 11/08/25 23:59 23:59 23:59 23:59 Intake Total 4000 3500 2950 1780 Output Total 801 Balance 3199 3500 2950 1780 Meds/Results Medications: Active Medications Generic Name Dose Route Start Last Admin Trade Name Freq PRN Reason Stop Dose Admin Acetaminophen 650 mg 11/05/25 11:31 11/06/25 04:42 Acetaminophen 325 Mg Tablet PO 650 mg Q6H PRN Administration Mild Pain (1-3) or Fever Hydrocodone Bitart/Acetaminophen 1 tab 11/06/25 19:56 11/07/25 19:57 Hydrocodone/Acetaminophen (*Crx) 5-325 Mg Tablet PO 1 tab Q4H PRN Administration Pain Rated 4-6 Al Hydrox/Mg Hydrox/Simethicone 30 ml 11/07/25 22:47 11/07/25 22:57 Mag Hydrox/Al Hydrox/Simeth 30 Ml Udc PO 30 ml Q6H PRN Administration Indigestion Atorvastatin Calcium 20 mg 11/06/25 09:00 11/08/25 10:07 Atorvastatin 20 Mg Tablet PO 20 mg DAILY ZITA Administration Dextrose 12.5 gm 11/05/25 02:02 Dextrose 50% 25 Gm/50 Ml Syringe IV PUSH PRN PRN Hypoglycemia Protocol Dicyclomine HCl 20 mg 11/05/25 09:28 11/08/25 10:12 Dicyclomine Hcl 10 Mg Capsule PO 20 mg QID PRN Administration Abdominal Cramping Glucagon 1 mg 11/05/25 02:02 Glucagon For Inj 1 Mg Vial IM PRN PRN Hypoglycemia Protocol Glucose 15 gm 11/05/25 02:02 Glucose Oral Gel 15 Gm Of Glucse In 37.5 Gm Tube PO PRN PRN Hypoglycemia Protocol Dextrose 1,000 mls @ 100 mls/hr 11/05/25 02:02 Dextrose 5% 1,000 Ml IVPB PRN PRN Hypoglycemia Protocol Piperacillin Sod/Tazobactam 50 mls @ 100 mls/hr 11/05/25 08:00 11/08/25 01:30 Sod 2.25 gm/ Sodium Chloride IVPB Infused Q6H ZITA Infusion Lisinopril 40 mg 11/06/25 09:00 11/08/25 10:07 Lisinopril 20 Mg Tablet PO 40 mg DAILY ZITA Administration Morphine Sulfate 2 mg 11/05/25 15:50 11/07/25 22:18 Morphine Sulfate (*Crx) 4 Mg/Ml Inj IV PUSH 2 mg Q6HR PRN Administration Pain Rated 7-10 Ondansetron HCl 4 mg 11/05/25 02:02 11/05/25 08:57 Ondansetron Inj 4 Mg/2 Ml Vial IV PUSH 4 mg Q4H PRN Administration Nausea Pantoprazole Sodium 40 mg 11/05/25 21:00 11/08/25 10:07 Pantoprazole 40 Mg Tablet PO 40 mg Q12HR ZITA Administration Ropinirole HCl 2 mg 11/05/25 18:25 11/08/25 05:41 Ropinirole Hcl 1 Mg Tablet PO 2 mg Q8HR ZITA Administration Radiology Results: ITS Impressions Head CT 11/04/25 20:45 IMPRESSION: 1. No acute intracranial abnormality. Chest X-Ray 11/04/25 21:12 IMPRESSION: 1: NO ACUTE CARDIOPULMONARY DISEASE. Chest/Abdomen/Pelvis CTA 11/05/25 07:21 IMPRESSION: 1. No pulmonary embolus. 2. Wall thickening of the left colon, consistent with colitis. Labs Labs: Laboratory Results - last 24 hr 11/07/25 11/07/25 11/07/25 16:48 20:23 20:25 WBC RBC Hgb Hct MCV MCH MCHC RDW Plt Count MPV Sodium Potassium Chloride Carbon Dioxide Anion Gap BUN Creatinine Estim Creat Clear Calc Estimated GFR Glucose POC Capillary Glucose 123 H 225 H 167 H Calcium 11/08/25 11/08/25 11/08/25 06:16 07:46 11:42 WBC 9.2 RBC 3.28 L Hgb 9.3 L Hct 29.5 L MCV 89.9 MCH 28.4 MCHC 31.5 L RDW 15.0 H Plt Count 171 MPV 10.3 Sodium 138 Potassium 3.7 Chloride 111 H Carbon Dioxide 24 Anion Gap 3 L BUN 7 Creatinine 0.81 Estim Creat Clear Calc Not Reportable Estimated GFR > 60 Glucose 92 POC Capillary Glucose 95 103 Calcium 8.3 L Quality VTE Prophylaxis VTE prophylaxis: mechanical ordered
[2025-11-09] VITALS (12 sets, daily range): BP systolic 130–165; BP diastolic 54–70; PULSE 67–81; RESP 14–16; TEMP 36.3–38.7; O2SAT 93–96
[2025-11-09] MEDS: PIPERACILLIN/TAZOBACTAM SOD 2.25 GM in SODIUM CHLORIDE 0.9% IV 50 ML 100 ML IVPB ×4 (02:50→20:00)
[2025-11-09 06:22] LABS: Hematocrit 28.8 % (37.0-47.0); Hemoglobin 9.3 g/dL (12.0-15.0); Mean Corpuscular HGB Conc 32.3 g/dl (32-36); Mean Corpuscular Hemoglobin 28.4 pg (26-34); Mean Corpuscular Volume 87.8 fl (80-100); Platelet Count Result 185 k/mm3 (150-375); Red Blood Count 3.28 M/mm3 (4.2-5.4); White Blood Count 7.9 K/mm3 (4.5-10.0)
[2025-11-09 06:38] LABS: Anion Gap 3 mmol/L (4-12); Blood Urea Nitrogen 7 mg/dL (7-17); Calcium 8.4 mg/dL (8.4-10.2); Carbon Dioxide 24 mmol/L (22-30); Chloride 111 mmol/L (98-107); Estimated Glomerular Filt Rate > 60; Glucose 96 mg/dL (65-110); Potassium 3.5 mmol/L (3.4-5.0); Sodium 138 mmol/L (137-145)
[2025-11-09] MEDS: PANTOPRAZOLE 40 MG TABLET PO ×2 (08:32→20:01)
[2025-11-09] MEDS: ATORVASTATIN 20 MG TABLET PO (08:32)
[2025-11-09] MEDS: MORPHINE SULFATE (*CRX) 4 MG/ML INJ 2 MG IV PUSH (08:34)
--- NOTE | 2025-11-09 14:19 | WPDGIPROGNO ---
Progress Note: A&P Assessment and Plan (1) Abdominal pain: Code(s): R10.9 - Unspecified abdominal pain Status: Acute (2) Bloody diarrhea: Code(s): R19.7 - Diarrhea, unspecified Status: Acute Plan 65-year-old female with abdominal pain, diarrhea, blood in the stool. CT scan showed colitis. Patient had a repeated CT scan this morning because of severe abdominal pain yesterday. The result of the custom still pending. Stool culture negative for Shigella. Will continue oral diet and check the result of the CT scan of the abdomen and pelvis. Eventually patient will require a colonoscopy either in-house or as outpatient. Time Spent With Patient Time with patient: 15 - 25 minutes Subjective Date/time seen: 11/09/25 14:19 Interval history: Patient stated her abdominal pain gets better. She is tolerating diet very well. No rectal bleeding. No diarrhea. She went for a CT scan of the abdomen and pelvis this morning and results still pending. Review of Systems Review of Systems: All systems reviewed & are unremarkable except as noted in HPI and below Exam Const: General: comfortable Other: very pleasant lady, calm and in no distress Resp: Effort & Inspection: normal respiratory effort Auscultation: clear to auscultation bilaterally Cardio: Rate: regular rate Rhythm: regular rhythm GI: Auscultation: normal bowel sounds Skin: General skin exam: normal color Neuro: Speech: normal speech Extrem: General: normal to inspection Psych: Affect: normal affect Objective Data Vital Signs Vital Signs: Vital Signs - 24 hr 11/08/25 20:00 11/08/25 20:00 11/08/25 20:33 Temperature 98.0 F Pulse Rate 63 61 63 Respiratory Rate 16 16 Blood Pressure 158/63 H Pulse Oximetry 96 96 Oxygen Delivery Room Air 11/09/25 00:00 11/09/25 04:00 11/09/25 06:00 Temperature 98.5 F Pulse Rate 78 78 81 Respiratory Rate 16 Blood Pressure 144/55 H Pulse Oximetry 96 Oxygen Delivery 11/09/25 08:00 11/09/25 08:00 Temperature Pulse Rate 72 Respiratory Rate Blood Pressure Pulse Oximetry 96 Oxygen Delivery Room Air Intake/Output Intake/Output: Intake & Output 11/06/25 11/07/25 11/08/25 11/09/25 23:59 23:59 23:59 23:59 Intake Total 3500 2950 2120 550 Output Total 650 Balance 3500 2950 1470 550 Meds/Results Medications: Active Medications Generic Name Dose Route Start Last Admin Trade Name Freq PRN Reason Stop Dose Admin Acetaminophen 650 mg 11/05/25 11:31 11/06/25 04:42 Acetaminophen 325 Mg Tablet PO 650 mg Q6H PRN Administration Mild Pain (1-3) or Fever Hydrocodone Bitart/Acetaminophen 1 tab 11/06/25 19:56 11/07/25 19:57 Hydrocodone/Acetaminophen (*Crx) 5-325 Mg Tablet PO 1 tab Q4H PRN Administration Pain Rated 4-6 Al Hydrox/Mg Hydrox/Simethicone 30 ml 11/07/25 22:47 11/07/25 22:57 Mag Hydrox/Al Hydrox/Simeth 30 Ml Udc PO 30 ml Q6H PRN Administration Indigestion Atorvastatin Calcium 20 mg 11/06/25 09:00 11/09/25 08:32 Atorvastatin 20 Mg Tablet PO 20 mg DAILY ZITA Administration Dextrose 12.5 gm 11/05/25 02:02 Dextrose 50% 25 Gm/50 Ml Syringe IV PUSH PRN PRN Hypoglycemia Protocol Dicyclomine HCl 20 mg 11/05/25 09:28 11/08/25 20:15 Dicyclomine Hcl 10 Mg Capsule PO 20 mg QID PRN Administration Abdominal Cramping Glucagon 1 mg 11/05/25 02:02 Glucagon For Inj 1 Mg Vial IM PRN PRN Hypoglycemia Protocol Glucose 15 gm 11/05/25 02:02 Glucose Oral Gel 15 Gm Of Glucse In 37.5 Gm Tube PO PRN PRN Hypoglycemia Protocol Dextrose 1,000 mls @ 100 mls/hr 11/05/25 02:02 Dextrose 5% 1,000 Ml IVPB PRN PRN Hypoglycemia Protocol Piperacillin Sod/Tazobactam 50 mls @ 100 mls/hr 11/05/25 08:00 11/09/25 13:41 Sod 2.25 gm/ Sodium Chloride IVPB 100 mls/hr Q6H ZITA Administration Lisinopril 40 mg 11/06/25 09:00 11/09/25 08:32 Lisinopril 20 Mg Tablet PO 40 mg DAILY ZITA Administration Morphine Sulfate 2 mg 11/05/25 15:50 11/09/25 08:34 Morphine Sulfate (*Crx) 4 Mg/Ml Inj IV PUSH 2 mg Q6HR PRN Administration Pain Rated 7-10 Ondansetron HCl 4 mg 11/05/25 02:02 11/05/25 08:57 Ondansetron Inj 4 Mg/2 Ml Vial IV PUSH 4 mg Q4H PRN Administration Nausea Pantoprazole Sodium 40 mg 11/05/25 21:00 11/09/25 08:32 Pantoprazole 40 Mg Tablet PO 40 mg Q12HR ZITA Administration Ropinirole HCl 2 mg 11/05/25 18:25 11/09/25 13:41 Ropinirole Hcl 1 Mg Tablet PO 2 mg Q8HR ZITA Administration Radiology Results: ITS Impressions Head CT 11/04/25 20:45 IMPRESSION: 1. No acute intracranial abnormality. Chest X-Ray 11/04/25 21:12 IMPRESSION: 1: NO ACUTE CARDIOPULMONARY DISEASE. Chest/Abdomen/Pelvis CTA 11/05/25 07:21 IMPRESSION: 1. No pulmonary embolus. 2. Wall thickening of the left colon, consistent with colitis. Labs Labs: Laboratory Results - last 24 hr 11/08/25 11/08/25 11/09/25 16:58 19:59 05:42 WBC 7.9 RBC 3.28 L Hgb 9.3 L Hct 28.8 L MCV 87.8 MCH 28.4 MCHC 32.3 RDW 14.7 H Plt Count 185 MPV 10.4 Sodium 138 Potassium 3.5 Chloride 111 H Carbon Dioxide 24 Anion Gap 3 L BUN 7 Creatinine 0.85 Estim Creat Clear Calc Not Reportable Estimated GFR > 60 Glucose 96 POC Capillary Glucose 106 H 135 H Calcium 8.4 11/09/25 11:53 WBC RBC Hgb Hct MCV MCH MCHC RDW Plt Count MPV Sodium Potassium Chloride Carbon Dioxide Anion Gap BUN Creatinine Estim Creat Clear Calc Estimated GFR Glucose POC Capillary Glucose 94 Calcium
[2025-11-09] MEDS: FUROSEMIDE INJ 40 MG/4 ML VIAL 20 MG IV PUSH (17:21)
[2025-11-09] MEDS: HYDROcodone/acetaminophen (*CRX) 5-325 MG TABLET 1 TAB PO (20:19)
--- NOTE | 2025-11-09 20:26 | P.PNIM_ITS ---
Assessment and Plan Assessment and Plan (1) Vasovagal syncope: Code(s): R55 - Syncope and collapse Status: Acute Assessment and Plan: Patient presents to the emergency department for a syncopal episode after ab dominal pain and vomiting. Metabolic panel with evidence of dehydration. CT brain without acute findings. EKG without acute ST changes, baseline troponin is elevated. No chest pain at this time. CTA chest PE with abdomen and pelvis obtained. Shows colitis and proctitis. - continue telemetry - obtain orthostatics VS (2) Elevated troponin: Code(s): R79.89 - Other specified abnormal findings of blood chemistry Status: Acute Assessment and Plan: see above (3) Colitis: Code(s): K52.9 - Noninfective gastroenteritis and colitis, unspecified Status: Acute Assessment and Plan: zosyn started-will continue stool cultures obtained - still pending GI was consulted, no plans for scope while inpatient advanced to low fiber diet per GI pain control with PRN morphine patient tolerating small amounts of food and fluids today patient had severe abdominal pain with radiation into the right shoulder last night requiring PO pain medication and IV pain medication, still with pain this morning if pain persists GI recommends repeat CT abdomen and pelvis due to continued severe pain, will repeat CT abdomen and pelvis (4) Sepsis: Qualifiers: Sepsis type: sepsis due to unspecified organism Sepsis acute organ dysfunction status: with acute organ dysfunction Severe sepsis acute organ dysfunction type: acute renal failure Acute renal failure type: unspecified Severe sepsis shock status: without septic shock Qualified Code(s): A41.9 - Sepsis, unspecified organism; R65.20 - Severe sepsis without septic shock; N17.9 - Acute kidney failure, unspecified Code(s): A41.9 - Sepsis, unspecified organism Status: Acute Assessment and Plan: RR24, bp 97/61, CBC- leukocytosis-27.1 pt was given IV fluids in ED- BP improved BC, UA/c/s, and stool cultures collected in ED c diff negative CTA chest PE with abdomen and pelvis obtained. Shows colitis and proctitis. Patient started on IV antibiotics piperacilli/tazobactram 3.375 q6h, started 11/05 daily labs (5) Gastroenteritis: Code(s): K52.9 - Noninfective gastroenteritis and colitis, unspecified Status: Acute Assessment and Plan: CTA chest PE with abdomen and pelvis obtained. Shows colitis and proctitis. Patient started on IV antibiotics. IV fluids - dc as tolerating PO fluids cdiff negative, stool cultures collected and pending -piperacilli/tazobactram 3.375 q6h, started 11/05 GI following, no plans for scope during this admission pain control AM labs (6) PATITO (acute kidney injury): Code(s): N17.9 - Acute kidney failure, unspecified Status: Acute Assessment and Plan: IV hydration monitor daily labs resolved (7) UTI (urinary tract infection): Code(s): N39.0 - Urinary tract infection, site not specified Status: Acute Assessment and Plan: Urine a possible evidence of infection. follow urine c/s - 25-50k Viridans streptococcus group no need to treat, colonization ruled out Medical Record Review I have reviewed the following patient records and this information was taken into consideration when formulating the assessment and plan.: previous labs, previous ER visits and previous hospitalizations Consultations Consultations: I have discussed the care of this pt with the consulting providers. Subjective Date/time seen: 11/09/25 20:26 Interval history: Patient seen for a follow up visit. Patient lying in bed, in no acute distress. Patient had complaints of severe abdominal pain earlier this morning requiring IV morphine. Due to continued pain we will repeat a CT of the abdomen and pelvis. GI following. Continues on IV antibiotics. Tolerating diet. Review of Systems Review of Systems: All systems reviewed & are unremarkable except as noted in HPI and below Exam Const: General: comfortable Other: very pleasant lady, calm and in no distress Resp: Effort & Inspection: normal respiratory effort Auscultation: clear to auscultation bilaterally Cardio: Rate: regular rate Rhythm: regular rhythm GI: Auscultation: normal bowel sounds Skin: General skin exam: normal color Neuro: Speech: normal speech Extrem: General: normal to inspection Psych: Affect: normal affect Objective Data Vital Signs Vital Signs: Vital Signs - 24 hr 11/08/25 20:33 11/09/25 00:00 11/09/25 04:00 Temperature 98.0 F Pulse Rate 63 78 78 Respiratory Rate 16 Blood Pressure 158/63 H Pulse Oximetry 96 Oxygen Delivery 11/09/25 06:00 11/09/25 08:00 11/09/25 08:00 Temperature 98.5 F Pulse Rate 81 72 Respiratory Rate 16 Blood Pressure 144/55 H Pulse Oximetry 96 96 Oxygen Delivery Room Air 11/09/25 12:00 11/09/25 14:00 11/09/25 16:00 Temperature 97.4 F L Pulse Rate 67 68 77 Respiratory Rate 14 Blood Pressure 130/54 L Pulse Oximetry 96 Oxygen Delivery Intake/Output Intake/Output: Intake & Output 11/06/25 11/07/25 11/08/25 11/09/25 23:59 23:59 23:59 23:59 Intake Total 3500 2950 2120 2040 Output Total 650 Balance 3500 2950 1470 2040 Meds/Results Medications: Active Medications Generic Name Dose Route Start Last Admin Trade Name Freq PRN Reason Stop Dose Admin Acetaminophen 650 mg 11/05/25 11:31 11/06/25 04:42 Acetaminophen 325 Mg Tablet PO 650 mg Q6H PRN Administration Mild Pain (1-3) or Fever Hydrocodone Bitart/Acetaminophen 1 tab 11/06/25 19:56 11/09/25 20:19 Hydrocodone/Acetaminophen (*Crx) 5-325 Mg Tablet PO 1 tab Q4H PRN Administration Pain Rated 4-6 Al Hydrox/Mg Hydrox/Simethicone 30 ml 11/07/25 22:47 11/07/25 22:57 Mag Hydrox/Al Hydrox/Simeth 30 Ml Udc PO 30 ml Q6H PRN Administration Indigestion Atorvastatin Calcium 20 mg 11/06/25 09:00 11/09/25 08:32 Atorvastatin 20 Mg Tablet PO 20 mg DAILY ZITA Administration Dextrose 12.5 gm 11/05/25 02:02 Dextrose 50% 25 Gm/50 Ml Syringe IV PUSH PRN PRN Hypoglycemia Protocol Dicyclomine HCl 20 mg 11/05/25 09:28 11/08/25 20:15 Dicyclomine Hcl 10 Mg Capsule PO 20 mg QID PRN Administration Abdominal Cramping Glucagon 1 mg 11/05/25 02:02 Glucagon For Inj 1 Mg Vial IM PRN PRN Hypoglycemia Protocol Glucose 15 gm 11/05/25 02:02 Glucose Oral Gel 15 Gm Of Glucse In 37.5 Gm Tube PO PRN PRN Hypoglycemia Protocol Dextrose 1,000 mls @ 100 mls/hr 11/05/25 02:02 Dextrose 5% 1,000 Ml IVPB PRN PRN Hypoglycemia Protocol Piperacillin Sod/Tazobactam 50 mls @ 100 mls/hr 11/05/25 08:00 11/09/25 20:00 Sod 2.25 gm/ Sodium Chloride IVPB 100 mls/hr Q6H ZITA Administration Lisinopril 40 mg 11/06/25 09:00 11/09/25 08:32 Lisinopril 20 Mg Tablet PO 40 mg DAILY ZITA Administration Morphine Sulfate 2 mg 11/05/25 15:50 11/09/25 08:34 Morphine Sulfate (*Crx) 4 Mg/Ml Inj IV PUSH 2 mg Q6HR PRN Administration Pain Rated 7-10 Ondansetron HCl 4 mg 11/05/25 02:02 11/05/25 08:57 Ondansetron Inj 4 Mg/2 Ml Vial IV PUSH 4 mg Q4H PRN Administration Nausea Pantoprazole Sodium 40 mg 11/05/25 21:00 11/09/25 20:01 Pantoprazole 40 Mg Tablet PO 40 mg Q12HR ZITA Administration Ropinirole HCl 2 mg 11/05/25 18:25 11/09/25 13:41 Ropinirole Hcl 1 Mg Tablet PO 2 mg Q8HR ZITA Administration Radiology Results: ITS Impressions Head CT 11/04/25 20:45 IMPRESSION: 1. No acute intracranial abnormality. Chest X-Ray 11/04/25 21:12 IMPRESSION: 1: NO ACUTE CARDIOPULMONARY DISEASE. Chest/Abdomen/Pelvis CTA 11/05/25 07:21 IMPRESSION: 1. No pulmonary embolus. 2. Wall thickening of the left colon, consistent with colitis. Abdomen/Pelvis CT 11/09/25 16:15 IMPRESSION: 1. Interval development of bibasilar airspace consolidation, suspicious for pneumonia. 2: New moderate pleural effusions. 3: Developing diffuse subcutaneous edema and ascites. This constellation of findings compatible with fluid overload/anasarca. 4: Mild thickening of the left colon, suspicious for colitis, most likely infectious or inflammatory. Labs Labs: Laboratory Results - last 24 hr 11/09/25 11/09/25 11/09/25 05:42 11:53 16:13 WBC 7.9 RBC 3.28 L Hgb 9.3 L Hct 28.8 L MCV 87.8 MCH 28.4 MCHC 32.3 RDW 14.7 H Plt Count 185 MPV 10.4 Sodium 138 Potassium 3.5 Chloride 111 H Carbon Dioxide 24 Anion Gap 3 L BUN 7 Creatinine 0.85 Estim Creat Clear Calc Not Reportable Estimated GFR > 60 Glucose 96 POC Capillary Glucose 94 105 Calcium 8.4 Quality VTE Prophylaxis VTE prophylaxis: mechanical ordered
[2025-11-09] MEDS: ACETAMINOPHEN 325 MG TABLET 650 MG PO (21:26)
[2025-11-10] VITALS (10 sets, daily range): BP systolic 127–167; BP diastolic 58–63; PULSE 65–86; RESP 16–18; TEMP 36.8–37.3; O2SAT 91–95
[2025-11-10] MEDS: PIPERACILLIN/TAZOBACTAM SOD 2.25 GM in SODIUM CHLORIDE 0.9% IV 50 ML 100 ML IVPB ×4 (01:16→22:16)
[2025-11-10 06:21] LABS: Hematocrit 30.5 % (37.0-47.0); Hemoglobin 9.7 g/dL (12.0-15.0); Mean Corpuscular HGB Conc 31.8 g/dl (32-36); Mean Corpuscular Hemoglobin 27.9 pg (26-34); Mean Corpuscular Volume 87.6 fl (80-100); Platelet Count Result 184 k/mm3 (150-375); Red Blood Count 3.48 M/mm3 (4.2-5.4); White Blood Count 9.4 K/mm3 (4.5-10.0)
[2025-11-10 06:34] LABS: Anion Gap 5 mmol/L (4-12); Blood Urea Nitrogen 10 mg/dL (7-17); Calcium 8.1 mg/dL (8.4-10.2); Carbon Dioxide 23 mmol/L (22-30); Chloride 107 mmol/L (98-107); Estimated Glomerular Filt Rate 57; Glucose 97 mg/dL (65-110); Potassium 3.2 mmol/L (3.4-5.0); Sodium 135 mmol/L (137-145)
[2025-11-10] MEDS: PANTOPRAZOLE 40 MG TABLET PO ×2 (09:11→22:16)
[2025-11-10] MEDS: ATORVASTATIN 20 MG TABLET PO (09:11)
[2025-11-10] MEDS: ACETAMINOPHEN 325 MG TABLET 650 MG PO (09:15)
[2025-11-10] MEDS: POTASSIUM CHLORIDE 20 MEQ ER TABLET 40 MEQ PO (09:19)
--- NOTE | 2025-11-10 10:34 | P.PNIM_ITS ---
Assessment and Plan Assessment and Plan (1) Vasovagal syncope: Code(s): R55 - Syncope and collapse Status: Acute Assessment and Plan: Patient presents to the emergency department for a syncopal episode after ab dominal pain and vomiting. Metabolic panel with evidence of dehydration. CT brain without acute findings. EKG without acute ST changes, baseline troponin is elevated. No chest pain at this time. CTA chest PE with abdomen and pelvis obtained. Shows colitis and proctitis. - continue telemetry - obtain orthostatics VS (2) Elevated troponin: Code(s): R79.89 - Other specified abnormal findings of blood chemistry Status: Acute Assessment and Plan: see above (3) Colitis: Code(s): K52.9 - Noninfective gastroenteritis and colitis, unspecified Status: Acute Assessment and Plan: zosyn started-will continue stool cultures obtained - still pending GI was consulted, no plans for scope while inpatient advanced to low fiber diet per GI pain control with PRN morphine patient tolerating small amounts of food and fluids today patient had continuing severe pain s/p repeat CT abdomen and pelvis without acute findings related to the abdomen, showed fluid overload including bilateral pleural effusions s/p IV furosemide 20 mg yesterday repeat IV furosemide 20 mg today AM labs (4) Sepsis: Qualifiers: Acute renal failure type: unspecified Sepsis acute organ dysfunction status: with acute organ dysfunction Sepsis type: sepsis due to unspecified organism Severe sepsis acute organ dysfunction type: acute renal failure Severe sepsis shock status: without septic shock Qualified Code(s): A41.9 - Sepsis, unspecified organism; R65.20 - Severe sepsis without septic shock; N17.9 - Acute kidney failure, unspecified Code(s): A41.9 - Sepsis, unspecified organism Status: Acute Assessment and Plan: RR24, bp 97/61, CBC- leukocytosis-27.1 pt was given IV fluids in ED- BP improved BC, UA/c/s, and stool cultures collected in ED c diff negative CTA chest PE with abdomen and pelvis obtained. Shows colitis and proctitis. Patient started on IV antibiotics piperacilli/tazobactram 3.375 q6h, started 11/05 daily labs patient febrile overnight 101.7 swab for covid, flu and rsv negative MRSA swab negative CXR shows left basilar opacity add IV azithromycin encourage use of IS (5) Gastroenteritis: Code(s): K52.9 - Noninfective gastroenteritis and colitis, unspecified Status: Acute Assessment and Plan: CTA chest PE with abdomen and pelvis obtained. Shows colitis and proctitis. Patient started on IV antibiotics. IV fluids - dc as tolerating PO fluids cdiff negative, stool cultures collected and pending -piperacilli/tazobactram 3.375 q6h, started 11/05 GI following, no plans for scope during this admission pain control AM labs (6) PATITO (acute kidney injury): Code(s): N17.9 - Acute kidney failure, unspecified Status: Acute Assessment and Plan: IV hydration monitor daily labs resolved (7) UTI (urinary tract infection): Code(s): N39.0 - Urinary tract infection, site not specified Status: Acute Assessment and Plan: Urine a possible evidence of infection. follow urine c/s - 25-50k Viridans streptococcus group no need to treat, colonization ruled out (8) Pneumonia: Code(s): J18.9 - Pneumonia, unspecified organism Status: Acute Assessment and Plan: patient was febrile overnight and reports of a new cough s/p covid RSV and flu swab - negative CXR with new left basilar opacity continue IV piperacillin-tazobactam add IV azithromycin nasal MRSA swab negative encourage use of IS AM labs Medical Record Review I have reviewed the following patient records and this information was taken into consideration when formulating the assessment and plan.: previous labs, previous ER visits and previous hospitalizations Consultations Consultations: I have discussed the care of this pt with the consulting providers. Subjective Date/time seen: 11/10/25 10:34 Interval history: Patient seen for a follow up. Patient lying in bed, in no acute distress. Patient reports abdominal pain has been mild since yesterday's episode of severe pain. Patient had a CT abdomen and pelvis yesterday which identified concerns for fluid overload including pleural effusions. Patient was on room air and no dyspnea. Patient given IV furosemide 20 mg last evening. Patient's k this AM was 3.2, oral replacement ordered. Will give patient another dose of IV furosemide today. Patient febrile overnight 101.7 and reports of not feeling well and a cough. Chest x-ray ordered and shows a left basilar airspace opacity. Swab for covid, flu and RSV negative. Nasal MRSA swab negative. IV azithromycin added for pneumonia. Monitor labs in the am. Possible discharge home tomorrow. Review of Systems Review of Systems: All systems reviewed & are unremarkable except as noted in HPI and below Exam Const: General: comfortable Other: very pleasant lady, calm and in no distress Resp: Effort & Inspection: normal respiratory effort Auscultation: clear to auscultation bilaterally Cardio: Rate: regular rate Rhythm: regular rhythm GI: Auscultation: normal bowel sounds Skin: General skin exam: normal color Neuro: Speech: normal speech Extrem: General: normal to inspection Psych: Affect: normal affect Objective Data Vital Signs Vital Signs: Vital Signs - 24 hr 11/09/25 12:00 11/09/25 14:00 11/09/25 16:00 Temperature 97.4 F L Pulse Rate 67 68 77 Respiratory Rate 14 Blood Pressure 130/54 L Pulse Oximetry 96 Oxygen Delivery 11/09/25 20:22 11/09/25 20:22 11/09/25 21:26 Temperature 101.7 F H Pulse Rate 77 Respiratory Rate Blood Pressure Pulse Oximetry Oxygen Delivery Room Air 11/09/25 22:00 11/09/25 22:26 11/09/25 23:37 Temperature 101.7 F H 98.8 F 98.7 F Pulse Rate 81 Respiratory Rate 16 Blood Pressure 165/70 H Pulse Oximetry 93 Oxygen Delivery 11/10/25 00:00 11/10/25 04:00 11/10/25 06:00 Temperature 99.1 F Pulse Rate 69 66 65 Respiratory Rate 16 Blood Pressure 127/63 Pulse Oximetry 95 Oxygen Delivery Intake/Output Intake/Output: Intake & Output 11/07/25 11/08/25 11/09/25 11/10/25 23:59 23:59 23:59 23:59 Intake Total 2950 2120 2090 570 Output Total 650 Balance 2950 1470 2090 570 Meds/Results Medications: Active Medications Generic Name Dose Route Start Last Admin Trade Name Freq PRN Reason Stop Dose Admin Acetaminophen 650 mg 11/05/25 11:31 11/10/25 09:15 Acetaminophen 325 Mg Tablet PO 650 mg Q6H PRN Administration Mild Pain (1-3) or Fever Hydrocodone Bitart/Acetaminophen 1 tab 11/06/25 19:56 11/09/25 20:19 Hydrocodone/Acetaminophen (*Crx) 5-325 Mg Tablet PO 1 tab Q4H PRN Administration Pain Rated 4-6 Al Hydrox/Mg Hydrox/Simethicone 30 ml 11/07/25 22:47 11/07/25 22:57 Mag Hydrox/Al Hydrox/Simeth 30 Ml Udc PO 30 ml Q6H PRN Administration Indigestion Atorvastatin Calcium 20 mg 11/06/25 09:00 11/10/25 09:11 Atorvastatin 20 Mg Tablet PO 20 mg DAILY ZITA Administration Dextrose 12.5 gm 11/05/25 02:02 Dextrose 50% 25 Gm/50 Ml Syringe IV PUSH PRN PRN Hypoglycemia Protocol Dicyclomine HCl 20 mg 11/05/25 09:28 11/08/25 20:15 Dicyclomine Hcl 10 Mg Capsule PO 20 mg QID PRN Administration Abdominal Cramping Glucagon 1 mg 11/05/25 02:02 Glucagon For Inj 1 Mg Vial IM PRN PRN Hypoglycemia Protocol Glucose 15 gm 11/05/25 02:02 Glucose Oral Gel 15 Gm Of Glucse In 37.5 Gm Tube PO PRN PRN Hypoglycemia Protocol Dextrose 1,000 mls @ 100 mls/hr 11/05/25 02:02 Dextrose 5% 1,000 Ml IVPB PRN PRN Hypoglycemia Protocol Piperacillin Sod/Tazobactam 50 mls @ 100 mls/hr 11/05/25 08:00 11/10/25 09:06 Sod 2.25 gm/ Sodium Chloride IVPB 100 mls/hr Q6H ZITA Administration Lisinopril 40 mg 11/06/25 09:00 11/10/25 09:12 Lisinopril 20 Mg Tablet PO 40 mg DAILY ZITA Administration Morphine Sulfate 2 mg 11/05/25 15:50 11/09/25 08:34 Morphine Sulfate (*Crx) 4 Mg/Ml Inj IV PUSH 2 mg Q6HR PRN Administration Pain Rated 7-10 Ondansetron HCl 4 mg 11/05/25 02:02 11/05/25 08:57 Ondansetron Inj 4 Mg/2 Ml Vial IV PUSH 4 mg Q4H PRN Administration Nausea Pantoprazole Sodium 40 mg 11/05/25 21:00 11/10/25 09:11 Pantoprazole 40 Mg Tablet PO 40 mg Q12HR ZITA Administration Ropinirole HCl 2 mg 11/05/25 18:25 11/10/25 05:48 Ropinirole Hcl 1 Mg Tablet PO 2 mg Q8HR ZITA Administration Radiology Results: ITS Impressions Head CT 11/04/25 20:45 IMPRESSION: 1. No acute intracranial abnormality. Chest X-Ray 11/04/25 21:12 IMPRESSION: 1: NO ACUTE CARDIOPULMONARY DISEASE. Chest/Abdomen/Pelvis CTA 11/05/25 07:21 IMPRESSION: 1. No pulmonary embolus. 2. Wall thickening of the left colon, consistent with colitis. Abdomen/Pelvis CT 11/09/25 16:15 IMPRESSION: 1. Interval development of bibasilar airspace consolidation, suspicious for pneumonia. 2: New moderate pleural effusions. 3: Developing diffuse subcutaneous edema and ascites. This constellation of findings compatible with fluid overload/anasarca. 4: Mild thickening of the left colon, suspicious for colitis, most likely infectious or inflammatory. Labs Labs: Laboratory Results - last 24 hr 11/09/25 11/09/25 11/09/25 11:53 16:13 20:10 WBC RBC Hgb Hct MCV MCH MCHC RDW Plt Count MPV Sodium Potassium Chloride Carbon Dioxide Anion Gap BUN Creatinine Estim Creat Clear Calc Estimated GFR Glucose POC Capillary Glucose 94 105 147 H Calcium 11/10/25 11/10/25 06:13 07:37 WBC 9.4 RBC 3.48 L Hgb 9.7 L Hct 30.5 L MCV 87.6 MCH 27.9 MCHC 31.8 L RDW 14.8 H Plt Count 184 MPV 9.5 Sodium 135 L Potassium 3.2 L Chloride 107 Carbon Dioxide 23 Anion Gap 5 BUN 10 Creatinine 0.96 Estim Creat Clear Calc Not Reportable Estimated GFR 57 L Glucose 97 POC Capillary Glucose 100 Calcium 8.1 L Quality VTE Prophylaxis VTE prophylaxis: mechanical ordered
--- NOTE | 2025-11-10 11:37 | WPDGIPROGNO ---
Progress Note: A&P Assessment and Plan (1) Colitis: Code(s): K52.9 - Noninfective gastroenteritis and colitis, unspecified Status: Acute (2) Bloody diarrhea: Code(s): R19.7 - Diarrhea, unspecified Status: Acute (3) Abdominal pain: Code(s): R10.9 - Unspecified abdominal pain Status: Acute (4) Vasovagal syncope: Code(s): R55 - Syncope and collapse Status: Acute (5) Acute blood loss anemia: Code(s): D62 - Acute posthemorrhagic anemia Status: Acute Plan 1.Colitis / Diarrhea / Hematochezia/ Acute blood loss Anemia: The presentation of bloody diarrhea following a syncopal episode is highly suggestive of ischemic colitis. Her symptoms are improving, no further abdominal pain, diarrhea or blood in stools. H&H are stable with no worsening. WBC is normal. Last colonoscopy 6-7 years ago which were normal. C diff, Shigella Negative, Campylobacter stool culture is pending. She had a repeat CT of the abdomen and pelvis completed yesterday due to severe abdominal plain yesterday 11/09 which showed mild colitis of the left colon with no obstruction or acute pathology. She does have new findings concerning for anasarca related to fluid overload and possible pneumonia. - Plan for outpatient colonoscopy to evaluate to follow up on colitis. - Continue to advance diet as tolerated - Monitor H&H - Follow up in the outpatient clinic after discharge to discuss her progress and schedule the colonoscopy. Thank you very much for allowing me to share in the care of this very nice patient. Time Spent With Patient Time with patient: 25 - 35 minutes Subjective Date/time seen: 11/10/25 1030 Interval history: This is a pleasant 75-year-old female with a past medical history of type 2 diabetes mellitus, hypertension, and status post cholecystectomy who presented to the ER room on 11/05/2025 with complaints of abdominal pain, diarrhea, and blood in the stool. GI was consulted for colitis. She reports that her symptoms began after a syncopal episode on . Following the episode, she experienced approximately 11 episodes of diarrhea, which subsequently became bloody. The blood was described as bright red. She denies any prior episodes of this nature, recent surgeries, or known food poisoning. She denies taking any NSAIDs. Her mother had severe Crohn's disease. She takes Mounjaro for her diabetes, which she has been on for two years at a stable dose. Today, she reports her abdominal pain is improved. She has had two soft, formed bowel movements without blood. She denies nausea or vomiting. She reports feeling bloated. She spiked a fever to 101.7F yesterday. She does feel short of breath. Recent CT done yesterday with concerns for pneumonia and moderate pleural effusions and anasarca. Review of Systems Review of Systems: All systems reviewed & are unremarkable except as noted in HPI and below Constitutional: Constitutional: Denies headache(s) and Denies weakness Eyes: Eyes: Denies blurry vision ENT: Reports Normal hearing present, Denies headache(s) and Denies neck pain Cardiovascular: Cardiovascular: Denies chest pain and Denies dyspnea Respiratory: Respiratory: Reports dyspnea Gastrointestinal: Gastrointestinal: Denies abdominal pain, Reports bloating, Denies hematochezia, Denies diarrhea, Denies nausea and Denies vomiting Genitourinary: Genitourinary: Denies dysuria Musculoskeletal: Musculoskeletal: Denies neck pain Integumentary/Breasts: Skin/Breast: Denies dry skin Neurologic: Reports Normal hearing present, Denies headache(s) and Denies weakness Psychiatric: Psychiatric: Denies anxiety Endocrine: Endocrine: Denies change in body appearance Hematologic/Lymphatic: Hematologic/Lymphatic: Denies easy bleeding Allergic/Immunologic: Allergic/Immunologic: Denies urticaria Exam Const: General: comfortable and no acute distress HENMT: Face/Nose/Sinus: Normal nares present Eyes: General: appearance normal, both eyes and all related structures Neck: Neck: no JVD Resp: Auscultation: diminished lung sounds Cardio: Rate: regular rate Rhythm: regular rhythm GI: Inspection: distended GI Palp: Yes Soft to palpation, No Firmness to palpation present (GI), No Tenderness to palpation present (GI) and No Guarding due to palpation present (GI) Auscultation: normal bowel sounds Skin: General skin exam: normal color Neuro: General: gait normal Speech: normal speech Extrem: General: normal to inspection Psych: Mental Status: mental status grossly normal Objective Data Vital Signs Vital Signs: Vital Signs - 24 hr 11/09/25 12:00 11/09/25 14:00 11/09/25 16:00 Temperature 97.4 F L Pulse Rate 67 68 77 Respiratory Rate 14 Blood Pressure 130/54 L Pulse Oximetry 96 Oxygen Delivery 11/09/25 20:22 11/09/25 20:22 11/09/25 21:26 Temperature 101.7 F H Pulse Rate 77 Respiratory Rate Blood Pressure Pulse Oximetry Oxygen Delivery Room Air 11/09/25 22:00 11/09/25 22:26 11/09/25 23:37 Temperature 101.7 F H 98.8 F 98.7 F Pulse Rate 81 Respiratory Rate 16 Blood Pressure 165/70 H Pulse Oximetry 93 Oxygen Delivery 11/10/25 00:00 11/10/25 04:00 11/10/25 06:00 Temperature 99.1 F Pulse Rate 69 66 65 Respiratory Rate 16 Blood Pressure 127/63 Pulse Oximetry 95 Oxygen Delivery 11/10/25 08:00 11/10/25 08:30 Temperature Pulse Rate 86 65 Respiratory Rate 16 Blood Pressure Pulse Oximetry 95 Oxygen Delivery Room Air Intake/Output Intake/Output: Intake & Output 11/07/25 11/08/25 11/09/25 11/10/25 23:59 23:59 23:59 23:59 Intake Total 2950 2120 2090 570 Output Total 650 Balance 2950 1470 2090 570 Meds/Results Medications: Active Medications Generic Name Dose Route Start Last Admin Trade Name Freq PRN Reason Stop Dose Admin Acetaminophen 650 mg 11/05/25 11:31 11/10/25 09:15 Acetaminophen 325 Mg Tablet PO 650 mg Q6H PRN Administration Mild Pain (1-3) or Fever Hydrocodone Bitart/Acetaminophen 1 tab 11/06/25 19:56 11/09/25 20:19 Hydrocodone/Acetaminophen (*Crx) 5-325 Mg Tablet PO 1 tab Q4H PRN Administration Pain Rated 4-6 Al Hydrox/Mg Hydrox/Simethicone 30 ml 11/07/25 22:47 11/07/25 22:57 Mag Hydrox/Al Hydrox/Simeth 30 Ml Udc PO 30 ml Q6H PRN Administration Indigestion Atorvastatin Calcium 20 mg 11/06/25 09:00 11/10/25 09:11 Atorvastatin 20 Mg Tablet PO 20 mg DAILY ZITA Administration Dextrose 12.5 gm 11/05/25 02:02 Dextrose 50% 25 Gm/50 Ml Syringe IV PUSH PRN PRN Hypoglycemia Protocol Dicyclomine HCl 20 mg 11/05/25 09:28 11/08/25 20:15 Dicyclomine Hcl 10 Mg Capsule PO 20 mg QID PRN Administration Abdominal Cramping Glucagon 1 mg 11/05/25 02:02 Glucagon For Inj 1 Mg Vial IM PRN PRN Hypoglycemia Protocol Glucose 15 gm 11/05/25 02:02 Glucose Oral Gel 15 Gm Of Glucse In 37.5 Gm Tube PO PRN PRN Hypoglycemia Protocol Dextrose 1,000 mls @ 100 mls/hr 11/05/25 02:02 Dextrose 5% 1,000 Ml IVPB PRN PRN Hypoglycemia Protocol Piperacillin Sod/Tazobactam 50 mls @ 100 mls/hr 11/05/25 08:00 11/10/25 09:06 Sod 2.25 gm/ Sodium Chloride IVPB 100 mls/hr Q6H ZITA Administration Lisinopril 40 mg 11/06/25 09:00 11/10/25 09:12 Lisinopril 20 Mg Tablet PO 40 mg DAILY ZITA Administration Morphine Sulfate 2 mg 11/05/25 15:50 11/09/25 08:34 Morphine Sulfate (*Crx) 4 Mg/Ml Inj IV PUSH 2 mg Q6HR PRN Administration Pain Rated 7-10 Ondansetron HCl 4 mg 11/05/25 02:02 11/05/25 08:57 Ondansetron Inj 4 Mg/2 Ml Vial IV PUSH 4 mg Q4H PRN Administration Nausea Pantoprazole Sodium 40 mg 11/05/25 21:00 11/10/25 09:11 Pantoprazole 40 Mg Tablet PO 40 mg Q12HR ZITA Administration Ropinirole HCl 2 mg 11/05/25 18:25 11/10/25 05:48 Ropinirole Hcl 1 Mg Tablet PO 2 mg Q8HR ZITA Administration Radiology Results: ITS Impressions Head CT 11/04/25 20:45 IMPRESSION: 1. No acute intracranial abnormality. Chest/Abdomen/Pelvis CTA 11/05/25 07:21 IMPRESSION: 1. No pulmonary embolus. 2. Wall thickening of the left colon, consistent with colitis. Abdomen/Pelvis CT 11/09/25 16:15 IMPRESSION: 1. Interval development of bibasilar airspace consolidation, suspicious for pneumonia. 2: New moderate pleural effusions. 3: Developing diffuse subcutaneous edema and ascites. This constellation of findings compatible with fluid overload/anasarca. 4: Mild thickening of the left colon, suspicious for colitis, most likely infectious or inflammatory. Chest X-Ray 11/10/25 11:15 IMPRESSION: 1. Left lower lobe atelectasis and/or airspace disease. 2. Small pleural effusions. Labs Labs: Laboratory Results - last 24 hr 11/09/25 11/09/25 11/09/25 11:53 16:13 20:10 WBC RBC Hgb Hct MCV MCH MCHC RDW Plt Count MPV Sodium Potassium Chloride Carbon Dioxide Anion Gap BUN Creatinine Estim Creat Clear Calc Estimated GFR Glucose POC Capillary Glucose 94 105 147 H Calcium 11/10/25 11/10/25 11/10/25 06:13 07:37 11:12 WBC 9.4 RBC 3.48 L Hgb 9.7 L Hct 30.5 L MCV 87.6 MCH 27.9 MCHC 31.8 L RDW 14.8 H Plt Count 184 MPV 9.5 Sodium 135 L Potassium 3.2 L Chloride 107 Carbon Dioxide 23 Anion Gap 5 BUN 10 Creatinine 0.96 Estim Creat Clear Calc Not Reportable Estimated GFR 57 L Glucose 97 POC Capillary Glucose 100 139 H Calcium 8.1 L
[2025-11-10 16:16] LABS: Influenza A QL RT-PCR Negative (Negative); Influenza B QL RT-PCR Negative (Negative); RSV RNA, RT-PCR Negative (Negative); SARS-CoV-2 RNA PCR Negative (Negative)
[2025-11-10] MEDS: FUROSEMIDE INJ 40 MG/4 ML VIAL 20 MG IV PUSH (16:57)
[2025-11-10] MEDS: AZITHROMYCIN IV 500 MG in SODIUM CHLORIDE 0.9% IV 250 ML IVPB (17:01)
[2025-11-10 19:29] LABS: MRSA (PCR) NOT DETECTED (NOT DETECTE)
[2025-11-11] VITALS: PULSE 72
[2025-11-11] MEDS: PIPERACILLIN/TAZOBACTAM SOD 2.25 GM in SODIUM CHLORIDE 0.9% IV 50 ML 100 ML IVPB ×2 (02:16→08:30)
[2025-11-11 05:35] VITALS: BP 142/60; PULSE 73; RESP 16; TEMP 36.2; O2SAT 91
[2025-11-11 06:28] LABS: Hematocrit 27.8 % (37.0-47.0); Hemoglobin 9.0 g/dL (12.0-15.0); Immature Granulocyte Percent A 1.0 % (0-0.5); Lymphocytes Absolute Auto 1.36 K/mm3 (0.9-3.2); Mean Corpuscular HGB Conc 32.4 g/dl (32-36); Mean Corpuscular Hemoglobin 28.0 pg (26-34); Mean Corpuscular Volume 86.3 fl (80-100); Nucleated Red Blood Cells Absolute Auto 0.000 K/mm3 (0.0-0.012); Nucleated Red Blood Cells Perc 0.0 % (0.0-0.2); Platelet Count Result 199 k/mm3 (150-375); Red Blood Count 3.22 M/mm3 (4.2-5.4); White Blood Count 8.4 K/mm3 (4.5-10.0)
[2025-11-11 06:41] LABS: Alanine Aminotransferase 17 U/L (6-35); Albumin Level 2.7 g/dL (3.5-5.1); Alkaline Phosphatase 74 U/L (38-126); Anion Gap 4 mmol/L (4-12); Aspartate Amino Transferase 24 U/L (14-36); Bilirubin,Total 0.7 mg/dL (0.2-1.3); Blood Urea Nitrogen 10 mg/dL (7-17); Calcium 8.0 mg/dL (8.4-10.2); Carbon Dioxide 25 mmol/L (22-30); Chloride 108 mmol/L (98-107); Estimated Glomerular Filt Rate > 60; Glucose 99 mg/dL (65-110); Potassium 3.4 mmol/L (3.4-5.0); Sodium 137 mmol/L (137-145); Total Protein 5.4 g/dL (6.3-8.2)
[2025-11-11 08:01] VITALS: PULSE 77
[2025-11-11] MEDS: PANTOPRAZOLE 40 MG TABLET PO (08:33)
[2025-11-11] MEDS: ATORVASTATIN 20 MG TABLET PO (08:33)
--- NOTE | 2025-11-11 10:44 | PCNWS ---
Weekly nutritional screen. Patient is tolerating current diet with adequate intake. No weight loss reported. No nutritional needs at this time.
--- NOTE | 2025-11-11 11:59 | WPDGIPROGNO ---
Progress Note: A&P Assessment and Plan (1) Colitis: Code(s): K52.9 - Noninfective gastroenteritis and colitis, unspecified Status: Acute (2) Bloody diarrhea: Code(s): R19.7 - Diarrhea, unspecified Status: Acute (3) Abdominal pain: Code(s): R10.9 - Unspecified abdominal pain Status: Acute (4) Vasovagal syncope: Code(s): R55 - Syncope and collapse Status: Acute (5) Acute blood loss anemia: Code(s): D62 - Acute posthemorrhagic anemia Status: Acute Plan 1.Colitis / Diarrhea / Hematochezia/ Acute blood loss Anemia: The presentation of bloody diarrhea following a syncopal episode is highly suggestive of ischemic colitis. Her symptoms are improving, no further abdominal pain, diarrhea or blood in stools. H&H are stable with no worsening. WBC is normal. Last colonoscopy 6-7 years ago which were normal. C diff, Shigella Negative, Campylobacter negative. - Plan for outpatient colonoscopy to evaluate to follow up on colitis. - Follow up in the outpatient clinic after discharge to discuss her progress and schedule the colonoscopy. - GI to sign off. Thank you very much for allowing me to share in the care of this very nice patient. Time Spent With Patient Time with patient: 25 - 35 minutes Subjective Date/time seen: 11/11/25 11:59 Interval history: Continues to feel well with no abdominal pain. She has had multiple bowel movements that are formed with no further rectal bleeding. She is tolerating regular diet she denies any shortness of breath or chest pain and is breathing fine as well. Review of Systems Review of Systems: All systems reviewed & are unremarkable except as noted in HPI and below Exam Const: General: comfortable GI: GI Palp: Yes Soft to palpation, No Tenderness to palpation present (GI) and No Guarding due to palpation present (GI) Auscultation: normal bowel sounds Psych: Mental Status: mental status grossly normal Objective Data Vital Signs Vital Signs: Vital Signs - 24 hr 11/10/25 12:00 11/10/25 14:00 11/10/25 16:01 Temperature 98.4 F Pulse Rate 80 74 68 Respiratory Rate 18 Blood Pressure 151/61 H Pulse Oximetry 91 11/10/25 20:00 11/10/25 21:32 11/11/25 00:00 Temperature 98.3 F Pulse Rate 71 76 72 Respiratory Rate 18 Blood Pressure 167/58 H Pulse Oximetry 94 11/11/25 05:35 11/11/25 08:01 Temperature 97.2 F L Pulse Rate 73 77 Respiratory Rate 16 Blood Pressure 142/60 H Pulse Oximetry 91 Intake/Output Intake/Output: Intake & Output 11/08/25 11/09/25 11/10/25 11/11/25 23:59 23:59 23:59 23:59 Intake Total 2120 0 1730 300 Output Total 650 Balance 1470 2089 1730 300 Meds/Results Medications: Active Medications Generic Name Dose Route Start Last Admin Trade Name Freq PRN Reason Stop Dose Admin Acetaminophen 650 mg 11/05/25 11:31 11/10/25 09:15 Acetaminophen 325 Mg Tablet PO 650 mg Q6H PRN Administration Mild Pain (1-3) or Fever Hydrocodone Bitart/Acetaminophen 1 tab 11/06/25 19:56 11/09/25 20:19 Hydrocodone/Acetaminophen (*Crx) 5-325 Mg Tablet PO 1 tab Q4H PRN Administration Pain Rated 4-6 Al Hydrox/Mg Hydrox/Simethicone 30 ml 11/07/25 22:47 11/07/25 22:57 Mag Hydrox/Al Hydrox/Simeth 30 Ml Udc PO 30 ml Q6H PRN Administration Indigestion Atorvastatin Calcium 20 mg 11/06/25 09:00 11/11/25 08:33 Atorvastatin 20 Mg Tablet PO 20 mg DAILY ZITA Administration Dextrose 12.5 gm 11/05/25 02:02 Dextrose 50% 25 Gm/50 Ml Syringe IV PUSH PRN PRN Hypoglycemia Protocol Dicyclomine HCl 20 mg 11/05/25 09:28 11/08/25 20:15 Dicyclomine Hcl 10 Mg Capsule PO 20 mg QID PRN Administration Abdominal Cramping Glucagon 1 mg 11/05/25 02:02 Glucagon For Inj 1 Mg Vial IM PRN PRN Hypoglycemia Protocol Glucose 15 gm 11/05/25 02:02 Glucose Oral Gel 15 Gm Of Glucse In 37.5 Gm Tube PO PRN PRN Hypoglycemia Protocol Dextrose 1,000 mls @ 100 mls/hr 11/05/25 02:02 Dextrose 5% 1,000 Ml IVPB PRN PRN Hypoglycemia Protocol Piperacillin Sod/Tazobactam 50 mls @ 100 mls/hr 11/05/25 08:00 11/11/25 09:30 Sod 2.25 gm/ Sodium Chloride IVPB Infused Q6H ZITA Infusion Azithromycin 500 mg/ Sodium 250 mls @ 250 mls/hr 11/10/25 17:00 11/10/25 17:01 Chloride IVPB 250 mls/hr Q24H ZITA Administration Lisinopril 40 mg 11/06/25 09:00 11/11/25 09:38 Lisinopril 20 Mg Tablet PO 40 mg DAILY ZITA Administration Morphine Sulfate 2 mg 11/05/25 15:50 11/09/25 08:34 Morphine Sulfate (*Crx) 4 Mg/Ml Inj IV PUSH 2 mg Q6HR PRN Administration Pain Rated 7-10 Ondansetron HCl 4 mg 11/05/25 02:02 11/05/25 08:57 Ondansetron Inj 4 Mg/2 Ml Vial IV PUSH 4 mg Q4H PRN Administration Nausea Pantoprazole Sodium 40 mg 11/05/25 21:00 11/11/25 08:33 Pantoprazole 40 Mg Tablet PO 40 mg Q12HR ZITA Administration Ropinirole HCl 2 mg 11/05/25 18:25 11/11/25 06:06 Ropinirole Hcl 1 Mg Tablet PO 2 mg Q8HR ZITA Administration Radiology Results: ITS Impressions Head CT 11/04/25 20:45 IMPRESSION: 1. No acute intracranial abnormality. Chest/Abdomen/Pelvis CTA 11/05/25 07:21 IMPRESSION: 1. No pulmonary embolus. 2. Wall thickening of the left colon, consistent with colitis. Abdomen/Pelvis CT 11/09/25 16:15 IMPRESSION: 1. Interval development of bibasilar airspace consolidation, suspicious for pneumonia. 2: New moderate pleural effusions. 3: Developing diffuse subcutaneous edema and ascites. This constellation of findings compatible with fluid overload/anasarca. 4: Mild thickening of the left colon, suspicious for colitis, most likely infectious or inflammatory. Chest X-Ray 11/10/25 11:15 IMPRESSION: 1. Left lower lobe atelectasis and/or airspace disease. 2. Small pleural effusions. Labs Labs: Laboratory Results - last 24 hr 11/10/25 11/10/25 11/10/25 15:35 16:38 18:12 WBC RBC Hgb Hct MCV MCH MCHC RDW Plt Count MPV Immature Gran % (Auto) Neut % (Auto) Lymph % (Auto) [place] % (Auto) Eos % (Auto) Baso % (Auto) Lymph # (Auto) [place] # (Auto) Eos # (Auto) Baso # (Auto) Abs Immat Gran (auto) Absolute Neuts (auto) Absolute Nucleated RBC Nucleated RBC % Sodium Potassium Chloride Carbon Dioxide Anion Gap BUN Creatinine Estim Creat Clear Calc Estimated GFR Glucose POC Capillary Glucose 129 H Calcium Total Bilirubin AST ALT Alkaline Phosphatase Total Protein Albumin Nasal MRSA (PCR) Not detected Influenza A (RT-PCR) Negative Influenza B (RT-PCR) Negative RSV (RT-PCR) Negative SARS-CoV-2 RNA (RT-PCR) Negative 11/10/25 11/11/25 11/11/25 20:07 06:14 07:30 WBC 8.4 RBC 3.22 L Hgb 9.0 L Hct 27.8 L MCV 86.3 MCH 28.0 MCHC 32.4 RDW 14.8 H Plt Count 199 MPV 10.1 Immature Gran % (Auto) 1.0 H Neut % (Auto) 71.4 Lymph % (Auto) 16.2 L [place] % (Auto) 8.2 Eos % (Auto) 2.6 Baso % (Auto) 0.6 Lymph # (Auto) 1.36 [place] # (Auto) 0.7 H Eos # (Auto) 0.2 Baso # (Auto) 0.1 Abs Immat Gran (auto) 0.08 H Absolute Neuts (auto) 6.0 Absolute Nucleated RBC 0.000 Nucleated RBC % 0.0 Sodium 137 Potassium 3.4 Chloride 108 H Carbon Dioxide 25 Anion Gap 4 BUN 10 Creatinine 0.87 Estim Creat Clear Calc Not Reportable Estimated GFR > 60 Glucose 99 POC Capillary Glucose 112 H 101 Calcium 8.0 L Total Bilirubin 0.7 AST 24 ALT 17 Alkaline Phosphatase 74 Total Protein 5.4 L Albumin 2.7 L Nasal MRSA (PCR) Influenza A (RT-PCR) Influenza B (RT-PCR) RSV (RT-PCR) SARS-CoV-2 RNA (RT-PCR) 11/11/25 11:07 WBC RBC Hgb Hct MCV MCH MCHC RDW Plt Count MPV Immature Gran % (Auto) Neut % (Auto) Lymph % (Auto) [place] % (Auto) Eos % (Auto) Baso % (Auto) Lymph # (Auto) [place] # (Auto) Eos # (Auto) Baso # (Auto) Abs Immat Gran (auto) Absolute Neuts (auto) Absolute Nucleated RBC Nucleated RBC % Sodium Potassium Chloride Carbon Dioxide Anion Gap BUN Creatinine Estim Creat Clear Calc Estimated GFR Glucose POC Capillary Glucose 108 H Calcium Total Bilirubin AST ALT Alkaline Phosphatase Total Protein Albumin Nasal MRSA (PCR) Influenza A (RT-PCR) Influenza B (RT-PCR) RSV (RT-PCR) SARS-CoV-2 RNA (RT-PCR)
[2025-11-11 12:04] VITALS: PULSE 70
--- NOTE | 2025-11-11 13:22 | P.DS_ITS ---
DS: Admitting Diagnosis Discharge Date 11/11/2025 Admitting Diagnosis vasovagal syncope elevated troponins colitis sepsis gastroenteritis PATITO DS: Discharge Diagnosis Discharge Diagnosis (1) Vasovagal syncope: Code(s): R55 - Syncope and collapse Status: Acute (2) Elevated troponin: Code(s): R79.89 - Other specified abnormal findings of blood chemistry Status: Acute (3) Colitis: Code(s): K52.9 - Noninfective gastroenteritis and colitis, unspecified Status: Acute (4) Sepsis: Qualifiers: Sepsis type: sepsis due to unspecified organism Sepsis acute organ dysfunction status: with acute organ dysfunction Severe sepsis acute organ dysfunction type: acute renal failure Acute renal failure type: unspecified Severe sepsis shock status: without septic shock Qualified Code(s): A41.9 - Sepsis, unspecified organism; R65.20 - Severe sepsis without septic shock; N17.9 - Acute kidney failure, unspecified Code(s): A41.9 - Sepsis, unspecified organism Status: Acute (5) Gastroenteritis: Code(s): K52.9 - Noninfective gastroenteritis and colitis, unspecified Status: Acute (6) PATITO (acute kidney injury): Code(s): N17.9 - Acute kidney failure, unspecified Status: Acute (7) UTI (urinary tract infection): Code(s): N39.0 - Urinary tract infection, site not specified Status: Acute (8) Pneumonia: Code(s): J18.9 - Pneumonia, unspecified organism Status: Acute DS: Summary Hospital Course Reason for hospitalization: syncopal episode Hospital Course: vasovagal syncope Patient presents to the emergency department for a syncopal episode after abdominal pain and vomiting. Metabolic panel with evidence of dehydration. CT brain without acute findings. EKG without acute ST changes, baseline troponin is elevated. No chest pain at this time. CTA chest PE with abdomen and pelvis obtained. Shows colitis and proctitis. - continue telemetry - obtain orthostatics VS elevated troponins see above colitis zosyn started-will continue stool cultures negative GI was consulted, no plans for scope while inpatient advanced to low fiber diet per GI pain control with PRN morphine patient had continuing severe pain s/p repeat CT abdomen and pelvis without acute findings related to the abdomen, showed fluid overload including bilateral pleural effusions s/p IV furosemide 20 mg x 2 doses abdominal pain improved and tolerating diet discharge with PO Augmentin x 4 days to complete course patient to follow up with GI as outpatient to arrange scope in the future sepsis RR24, bp 97/61, CBC- leukocytosis-27.1 on admission pt was given IV fluids in ED- BP improved BC, UA/c/s, and stool cultures collected in ED c diff negative CTA chest PE with abdomen and pelvis obtained. Shows colitis and proctitis. Patient started on IV antibiotics piperacilli/tazobactram 3.375 q6h, started 11/05 patient febrile overnight 101.7 swab for covid, flu and rsv negative MRSA swab negative CXR shows left basilar opacity add IV azithromycin encourage use of IS gastroenteritis CTA chest PE with abdomen and pelvis obtained. Shows colitis and proctitis. Patient started on IV antibiotics. IV fluids - dc as tolerating PO fluids cdiff negative, stool cultures negative -piperacilli/tazobactram 3.375 q6h, started 11/05 GI following, no plans for scope during this admission pain control patient tolerating diet and abdominal pain better discharge home on Augmentin x 4 days to complete course of antibiotics PATITO s/p IV hydration resolved UTI Urine a possible evidence of infection. follow urine c/s - 25-50k Viridans streptococcus group no need to treat, colonization ruled out Pneumonia patient was febrile overnight and reports of a new cough s/p covid RSV and flu swab - negative CXR with new left basilar opacity continue IV piperacillin-tazobactam add IV azithromycin nasal MRSA swab negative encourage use of IS patient discharging home on PO azithromycin x 4 days and PO Augmentin x 4 days to complete course of antibiotics patient to follow up with PCP in 1-2 weeks to ensure resolution of pneumonia Time Spent with Patient Time attestation: Total time spent providing and/or coordinating discharge services:40 minutes Exam Const: General: comfortable Other: very pleasant lady, calm and in no distress HENMT: Face/Nose/Sinus: Normal nares present Mouth: Yes moist mucous membranes Eyes: General: appearance normal, both eyes and all related structures Sclera: sclerae normal Neck: Neck: supple Resp: Effort & Inspection: normal respiratory effort Auscultation: clear to auscultation bilaterally Cardio: Rate: regular rate Rhythm: regular rhythm GI: GI Palp: Yes Soft to palpation Auscultation: normal bowel sounds Skin: General skin exam: normal color and no rashes or lesions noted Neuro: General: gait normal Speech: normal speech Motor exam (neuro): 5/5 motor strength present throughout Sensory Exam: normal sensation Extrem: General: normal to inspection Psych: Affect: normal affect DS: Data Data Completed and Pending Labs on day of discharge: Labs from last 24 hours 11/11/25 11/11/25 11/11/25 11:07 07:30 06:14 WBC 8.4 RBC 3.22 L Hgb 9.0 L Hct 27.8 L MCV 86.3 MCH 28.0 MCHC 32.4 RDW 14.8 H Plt Count 199 MPV 10.1 Immature Gran % (Auto) 1.0 H Neut % (Auto) 71.4 Lymph % (Auto) 16.2 L [place] % (Auto) 8.2 Eos % (Auto) 2.6 Baso % (Auto) 0.6 Lymph # (Auto) 1.36 [place] # (Auto) 0.7 H Eos # (Auto) 0.2 Baso # (Auto) 0.1 Abs Immat Gran (auto) 0.08 H Absolute Neuts (auto) 6.0 Absolute Nucleated RBC 0.000 Nucleated RBC % 0.0 Sodium 137 Potassium 3.4 Chloride 108 H Carbon Dioxide 25 Anion Gap 4 BUN 10 Creatinine 0.87 Estim Creat Clear Calc Not Reportable Estimated GFR > 60 Glucose 99 POC Capillary Glucose 108 H 101 Calcium 8.0 L Total Bilirubin 0.7 AST 24 ALT 17 Alkaline Phosphatase 74 Total Protein 5.4 L Albumin 2.7 L Nasal MRSA (PCR) Influenza A (RT-PCR) Influenza B (RT-PCR) RSV (RT-PCR) SARS-CoV-2 RNA (RT-PCR) 11/10/25 11/10/25 11/10/25 20:07 18:12 16:38 WBC RBC Hgb Hct MCV MCH MCHC RDW Plt Count MPV Immature Gran % (Auto) Neut % (Auto) Lymph % (Auto) [place] % (Auto) Eos % (Auto) Baso % (Auto) Lymph # (Auto) [place] # (Auto) Eos # (Auto) Baso # (Auto) Abs Immat Gran (auto) Absolute Neuts (auto) Absolute Nucleated RBC Nucleated RBC % Sodium Potassium Chloride Carbon Dioxide Anion Gap BUN Creatinine Estim Creat Clear Calc Estimated GFR Glucose POC Capillary Glucose 112 H 129 H Calcium Total Bilirubin AST ALT Alkaline Phosphatase Total Protein Albumin Nasal MRSA (PCR) Not detected Influenza A (RT-PCR) Influenza B (RT-PCR) RSV (RT-PCR) SARS-CoV-2 RNA (RT-PCR) 11/10/25 15:35 WBC RBC Hgb Hct MCV MCH MCHC RDW Plt Count MPV Immature Gran % (Auto) Neut % (Auto) Lymph % (Auto) [place] % (Auto) Eos % (Auto) Baso % (Auto) Lymph # (Auto) [place] # (Auto) Eos # (Auto) Baso # (Auto) Abs Immat Gran (auto) Absolute Neuts (auto) Absolute Nucleated RBC Nucleated RBC % Sodium Potassium Chloride Carbon Dioxide Anion Gap BUN Creatinine Estim Creat Clear Calc Estimated GFR Glucose POC Capillary Glucose Calcium Total Bilirubin AST ALT Alkaline Phosphatase Total Protein Albumin Nasal MRSA (PCR) Influenza A (RT-PCR) Negative Influenza B (RT-PCR) Negative RSV (RT-PCR) Negative SARS-CoV-2 RNA (RT-PCR) Negative Preliminary micro results at discharge 11/05/25 01:14 Blood Culture - Preliminary Blood 11/05/25 01:14 Blood Culture - Preliminary Blood Imaging Radiologist's impression: Ordering Physician: Shae Kern PA-C Date of Service: 11/04/25 Procedure(s): CT brain [facility] Accession Number(s): [id number] cc: Amrita, Elvin Diana PA-C; Shae Kren PA-C~ EXAMINATION: CT BRAIN W/O DATE: 11/04/2025 20:44 INDICATION: Syncope TECHNIQUE: Computed tomography (CT) of the head was performed without intravenous contrast. The dose-length product was 529.67 mGy-cm. COMPARISON: No prior studies for comparison. FINDINGS: Decreased brain parenchymal volume for age. Normal valdez-white differentiation. No acute intracranial hemorrhage, infarction, mass or mass effect. There are scattered mild periventricular and subcortical white matter changes, most likely related to small vessel ischemic disease (microangiopathy). No ventriculomegaly or midline shift. Midline sagittal images demonstrate a normal corpus callosum, craniovertebral junction and sella turcica. Basilar cisterns are patent. Paranasal sinuses and mastoids are pneumatized. No depressed skull fractures. IMPRESSION: 1. No acute intracranial abnormality. Ordering Physician: Shae Kern PA-C Date of Service: 11/04/25 Procedure(s): XR chest 1V Accession Number(s): [id number] cc: Amrita, Elvin Diana PA-C; Shae Kern PA-C~ EXAMINATION: XR chest 1V 11/04/2025 20:46 INDICATION: Syncope PROCEDURE: AP view of the chest COMPARISON: No prior studies for comparison. FINDINGS: The lungs are clear. The cardiomediastinal silhouette is within normal limits. There are no pleural effusions. There is no pneumothorax suspected. IMPRESSION: 1: NO ACUTE CARDIOPULMONARY DISEASE. Ordering Physician: Shae Kern PA-C Date of Service: 11/05/25 Procedure(s): CTA chest PE abdomen pel Accession Number(s): [id number] cc: Allyson, Elvin Diana PA-C; Shae Kern PA-C; Uyen Thapa DO~ EXAMINATION: CTA chest PE abdomen pel DATE: 11/05/2025 01:03 INDICATION: Abdominal pain. Diarrhea. Syncope. TECHNIQUE: Computed tomography angiography (CTA) of the chest was performed with 100 mL Omnipaque-350 intravenous contrast timed to evaluate the pulmonary arteries. Coronal maximum intensity projection 3D-reconstructions were created by the technologist. Computed tomography (CT) of the abdomen and pelvis was performed with intravenous contrast. Automated exposure control and iterative reconstruction technique were employed. The dose-length product was 359.24 mGy- cm. COMPARISON: None. FINDINGS: CTA chest: There is a 3 mm nodule in left lung upper lobe, likely benign. There is mild atelectasis bilaterally. A calcified right lung nodule is consistent with old granulomatous disease. No pleural effusion. The heart size is normal. There are coronary artery calcifications. There is a trace pericardial effusion. There is no pulmonary embolus. There is thoracic dextroscoliosis and severe spondylosis. CT abdomen and pelvis: There is a 4 mm cyst. There are changes of cholecystotomy. The spleen, pancreas, adrenal glands, and kidneys are normal. The stomach distended. There are no dilated loops of small or large bowel. There is wall thickening of the left colon. The appendix is not visualized. There is trace ascites. Body wall edema is noted. There are no pathologically enlarged lymph nodes. There is lumbar levoscoliosis and severe spondylosis. IMPRESSION: 1. No pulmonary embolus. 2. Wall thickening of the left colon, consistent with colitis. Ordering Physician: Amber Hernandez APRN Date of Service: 11/09/25 Procedure(s): CT abdomen pelvis w con Accession Number(s): [id number] cc: Allyson, Elvin Diana PA-C; Uyen Thapa DO; Amber Hernandez, CLAIRE~ EXAMINATION: CT abdomen pelvis w con DATE: 11/09/2025 13:21 INDICATION: Severe abdominal pain TECHNIQUE: Computed tomography (CT) of the abdomen and pelvis was performed with intravenous contrast. The dose-length product was 260.91 mGy-cm. Automated exposure control and iterative reconstruction technique were employed. COMPARISON: CT abdomen dated 11/05/2025. FINDINGS: Small pericardial effusion. Heart size normal. Moderate bilateral pleural effusions have developed since prior examination. There is bilateral lower lobe airspace consolidation which may represent pneumonia and/or ate lectasis. Fatty infiltration of the liver. Status post cholecystectomy. The spleen, pancreas, adrenal glands and kidneys are unremarkable. Status post cholecystectomy. Nonobstructive bowel gas pattern. There is diffuse body wall edema. Small amount of ascites. No significant vascular abnormality. No lymphadenopathy. Mild thickening of the left colon, suspicious for colitis. There is scoliosis. IMPRESSION: 1. Interval development of bibasilar airspace consolidation, suspicious for pneumonia. 2: New moderate pleural effusions. 3: Developing diffuse subcutaneous edema and ascites. This constellation of findings compatible with fluid overload/anasarca. 4: Mild thickening of the left colon, suspicious for colitis, most likely infectious or inflammatory. Ordering Physician: Amber Hernandez APRN Date of Service: 11/10/25 Procedure(s): XR chest 2V Accession Number(s): [id number] cc: Allyson, Elvin Diana PA-C; Uyen Thapa DO; Amber Hernandez APRN~ Examination: XR chest 2V Clinical History: fever Comparison: 11/04/2025 Technique: PA and Lateral Findings: Cardiomediastinal silhouette normal size and configuration. Left basilar airspace opacity. Small pleural effusions. No acute bony abnormality. Osteopenia. IMPRESSION: 1. Left lower lobe atelectasis and/or airspace disease. 2. Small pleural effusions. Discharge Plan Discharge Attending physician on discharge: Khadra Welch Consulting providers: Theo Rm; Kadeem Alvarado; Ferdinand Santana; Shelby Cordero; Adrian Lynch; Chelsy Denis; Chuy Meza; Daniel Cuba V.; Tanesha,Tramaine Valle Discharging Clinician: Amber Hernandez Patient Disposition: Home Activity: as tolerated Diet: high fiber Discharge Instructions: Please complete all your antibiotics even if you are feeling better. Please follow up with GI to schedule an outpatient colonoscopy. Please call your PCP or present to the ER for shortness of breath, chest pain, fever greater than 100.4F, nausea, vomiting or diarrhea. Patient Instructions: Antibiotic Form Patient Language: Upper Sorbian Stand Alone Forms: General Discharge Information Follow-up/Referrals: Amrita,Elvin Diana PA-C [Primary Care Provider] Referral Note: call for an appointment to be seen within 1-2 weeks of discharge. Theo Rm MD [Physician, Gastroenterology] Referral Note: call to schedule an outpatient colonoscopy as was discussed during your hospital admission. Discharge Medications: New azithromycin 500 mg tablet 500 mg PO DAILY 4 Days Qty: 4 0RF Rx Instructions: start 11/11 at 5 pm amoxicillin-pot clavulanate 875-125 mg tablet 1 tablet PO Q12H Qty: 8 0RF Rx Instructions: start 11/11 at 9 pm dextromethorphan-guaifenesin [Mucinex DM] 60-1,200 mg tablet extended release 12 hr 1 tablet PO Q12H Qty: 20 0RF Continued ropinirole 1 mg tablet 2 mg PO .COMPLEX Rx Instructions: 2 mg orally Q8HR; hydrochlorothiazide 50 mg tablet 50 mg PO DAILY omeprazole 40 mg capsule,delayed release(DR/EC) 40 mg PO .Q12HR lisinopril 40 mg tablet 40 mg PO DAILY Linzess 290 mcg capsule 290 mcg PO 0630 Mounjaro 5 mg/0.5 mL pen injector 5 mg SUBCUT WEEKLY Patient Comments: takes on Sunday atorvastatin 20 mg tablet 20 mg PO DAILY Date of admission: 11/06/25 08:16 Primary Care Provider: Amrita,Elvin Diana Admitting Provider: Uyen Thapa Attending physician on admission: Amber Hernandez Condition: Stable Quality VTE Prophylaxis VTE prophylaxis: mechanical ordered
== END 2025-11-11 13:53 | disposition home or self-care (01) | DRG 871 ==
LOC: ANHED 11-05 02:08 → ANHIMU 11-05 02:47 → ANH3MEDSUR 11-05 12:09
PROVIDERS: Internal Medicine; Internal Medicine Gastroenterology; Nurse Practitioner; Admitting Provider Internal Medicine; Emergency Provider Physician Assistant; PCP Physician Assistant; Visit Provider Nurse Practitioner Adult Health
DX: A41.9 Sepsis, unspecified organism (principal); J18.9 Pneumonia, unspecified organism; K55.9 Vascular disorder of intestine, unspecified; D62 Acute posthemorrhagic anemia; N17.9 Acute kidney failure, unspecified; I24.89 Other forms of acute ischemic heart disease; I31.39 Other pericardial effusion (noninflammatory); J90 Pleural effusion, not elsewhere classified; K62.89 Other specified diseases of anus and rectum; I95.1 Orthostatic hypotension; E11.9 Type 2 diabetes mellitus without complications; E86.0 Dehydration; I10 Essential (primary) hypertension; E86.1 Hypovolemia; Z20.822 Contact with and (suspected) exposure to COVID-19; E78.5 Hyperlipidemia, unspecified; K21.9 Gastro-esophageal reflux disease without esophagitis; G25.81 Restless legs syndrome; Z90.49 Acquired absence of other specified parts of digestive tract
CPT/HCPCS: 36415; 70450; 71045; 71046; 71275; 74177; 80048; 80053; 81001; 82948; 83605; 83690; 83735; 84484; 85014; 85018; 85025; 85027; 85652; 87040; 87045; 87046; 87086; 87427; 87493; 87636; 87637; 87641; 93005; 96361; 96365; 96375; 99285; A9270; G0378; J0456; J1171; J1938; J2270; J2405; J2543; J7030; J7050; J7120; Q9967